=== PATIENT | female | born 1960 | race Caucasian/White ===

== ENCOUNTER 2020-01-25 08:45 | Outpatient (CLI) | payer BC, SELFPAY ==
--- NOTE | ~2020-01-25 | CT_ITS ---
EXAMINATION: CT chest w con DATE: 01/25/2020 09:26 INDICATION: Non-small cell right lung cancer TECHNIQUE: Computed tomography (CT) of the chest was performed with 75 cc Omnipaque 350 intravenous c ontrast. The dose-length product was 238.77 mGy-cm. Automated exposure control and iterative reconstr uction technique were employed. COMPARISON: Pet/CT dated 08/11/2019 FINDINGS: There is developing right paratracheal lymphadenopathy for instance on image 37 lymph node measures 1.5 cm short axis. There is right hilar lymphadenopathy, image 44 lymph node measures 1.2 cm . There is subcarinal lymphadenopathy. No significant pleural or pericardial effusion. Heart size is normal. Mild atherosclerosis of the aorta without evidence for aneurysm or dissection. Status post ri ght upper lobectomy with excision of right upper lobe mass since prior examination. Calcified granulo mas in the left lower lobe. Elevated right diaphragm, consistent with volume loss. There are scleroti c areas within multiple thoracic vertebra involving the anterior inferior margin, likely degenerative . No osteolytic defects are seen. No acute osseous abnormality. Fatty infiltration of the liver. Stat us post cholecystectomy. IMPRESSION: 1. Developing mediastinal and right hilar lymphadenopathy which is nonspecific, possibly reactive robby colleen metastatic disease. 2: Interval right upper lobectomy for pulmonary nodule. Reviewed, dictated and finalized at location A. IMPRESSION: 1. Developing mediastinal and right hilar lymphadenopathy which is nonspecific, possibly reactive versus metastatic disease. 2: Interval right upper lobectomy for pulmonary nodule.
[2020-01-25 09:25] LABS: Estimated Glomerular Filt Rate > 60
[2020-01-25 12:08] LABS: Basophils Absolute Auto 0.1 K/mm3 (0.0-0.1); Eosinophils Absolute Auto 0.5 K/mm3 (0-0.3); Eosinophils Percent Auto 5.7 % (0-4.4); Hematocrit 43.5 % (37.0-47.0); Hemoglobin 14.3 g/dL (12.0-15.0); Immature Granulocyte Absolute 0.02 K/mm3 (0.00-0.031); Immature Granulocyte Percent A 0.2 % (0-0.5); Lymphocytes Absolute Auto 3.14 K/mm3 (0.9-3.2); Mean Corpuscular HGB Conc 32.9 g/dl (32-36); Mean Corpuscular Hemoglobin 27.8 pg (26-34); Mean Corpuscular Volume 84.5 fl (80-100); Mean Platelet Volume 9.7 fl (7.4-10.4); Monocytes Absolute Auto 0.7 K/mm3 (0.1-0.6); Monocytes Percent Auto 8.3 % (2.6-8.5); Neutrophils Absolute Auto 3.9 K/mm3 (1.3-6.7); Neutrophils Percent Auto 46.8 % (45.5-73.1); Platelet Count Result 298 k/mm3 (150-375); Red Blood Count 5.15 M/mm3 (4.2-5.4); Red Cell Distribution Width 13.8 % (11.5-14.5); White Blood Count 8.3 K/mm3 (4.5-10.0)
[2020-01-25 12:16] LABS: Alanine Aminotransferase 42 U/L (4-35); Albumin Level 4.2 g/dL (3.5-5.1); Alkaline Phosphatase 170 U/L (38-126); Aspartate Amino Transferase 38 U/L (14-36); Bilirubin,Total 0.3 mg/dL (0.2-1.3); Blood Urea Nitrogen 8 mg/dL (7-17); Calcium 9.4 mg/dL (8.4-10.2); Carbon Dioxide 27 mmol/L (22-30); Chloride 106 mmol/L (98-107); Estimated Glomerular Filt Rate > 60; Glucose 117 mg/dL (65-105); Potassium 4.4 mmol/L (3.4-5.0); Sodium 139 mmol/L (137-145)
== END 2020-01-25 08:46 | disposition home or self-care (01) ==
PROVIDERS: PCP Internal Medicine Infectious Disease; Visit Provider Internal Medicine Hematology & Oncology
DX: C34.91 Malignant neoplasm of unspecified part of right bronchus or lung (principal)
CPT/HCPCS: 36415; 71260; 80053; 85025; Q9967

== ENCOUNTER 2020-03-01 07:46 | Outpatient (CLI) | payer BC, SELFPAY ==
--- NOTE | ~2020-03-01 | PE_ITS ---
EXAMINATION: PET skull to mid thigh DATE: 03/01/2020 09:26 INDICATION: Non-small cell cancer of the right lung TECHNIQUE: Blood glucose level was 139 mg/dL. 9.85 mCi of 18-fluorodeoxyglucose (18-FDG) was administ ered i.v. Low dose computed tomography (CT) images were acquired from the base of the brain to the pr oximal thighs for attenuation correction and anatomic localization. Positron emission tomography (PET ) images were acquired in the same distribution beginning 51 minutes after injection. COMPARISON: 08/11/2019 FINDINGS: Head/neck: FDG uptake in the oral cavity and prevertebral soft tissues without suspicious CT correlat e is likely physiologic. There are no pathologically enlarged lymph nodes. Chest: There are changes of interval right upper lobectomy. Stable mildly enlarged right paratracheal lymph nodes are identified with mild FDG uptake. The heart size is normal. The lungs are free of foc al airspace opacities. There is no pleural effusion or pneumothorax. Abdomen/pelvis/proximal thighs: Physiologic FDG activity is present in the bowel and urinary tract. N o abnormal FDG uptake is identified. The liver is diffusely low in attenuation when compared with the spleen, consistent with hepatic steatosis. The gallbladder is surgically absent. The spleen, pancre as, left adrenal gland, and kidneys are normal. A stable low-attenuation mass of the right adrenal gl and without FDG uptake is consistent with an adenoma. No pathologically enlarged abdominal or pelvic lymph nodes are identified. There is no free intraperitoneal gas or evidence of bowel obstruction. Th ere is calcified atherosclerosis of the aorta and many of the other arteries. Musculoskeletal: No abnormal FDG uptake is identified. There is mild thoracic and lumbar spondylosis. IMPRESSION: 1. Interval right upper lobectomy without evidence of metastatic disease. Mild FDG uptake in right pa ratracheal lymph nodes is likely reactive. Reviewed, dictated and finalized at location A. IMPRESSION: 1. Interval right upper lobectomy without evidence of metastatic disease. Mild FDG uptake in right paratracheal lymph nodes is likely reactive.
[2020-03-01 08:07] LABS: Glucose Point of Care 139 (65-105)
== END 2020-03-01 07:47 | disposition home or self-care (01) ==
LOC: ANHIMG 07:50
PROVIDERS: PCP Internal Medicine Infectious Disease; Visit Provider Internal Medicine Hematology & Oncology
DX: C34.91 Malignant neoplasm of unspecified part of right bronchus or lung (principal)
CPT/HCPCS: 78815; A9552

== ENCOUNTER 2020-04-03 15:15 | Outpatient (CLI) | payer BC, SELFPAY ==
[2020-04-03 15:28] LABS: Basophils Absolute Auto 0.1 K/mm3 (0.0-0.1); Eosinophils Absolute Auto 0.4 K/mm3 (0-0.3); Eosinophils Percent Auto 5.7 % (0-4.4); Hematocrit 40.8 % (37.0-47.0); Hemoglobin 13.6 g/dL (12.0-15.0); Immature Granulocyte Absolute 0.02 K/mm3 (0.00-0.031); Immature Granulocyte Percent A 0.3 % (0-0.5); Lymphocytes Absolute Auto 2.64 K/mm3 (0.9-3.2); Lymphocytes Percent Auto 39.5 % (18.3-44.2); Mean Corpuscular HGB Conc 33.3 g/dl (32-36); Mean Corpuscular Hemoglobin 29.2 pg (26-34); Mean Corpuscular Volume 87.6 fl (80-100); Mean Platelet Volume 9.8 fl (7.4-10.4); Monocytes Absolute Auto 0.6 K/mm3 (0.1-0.6); Monocytes Percent Auto 9.3 % (2.6-8.5); Neutrophils Percent Auto 44.2 % (45.5-73.1); Platelet Count Result 269 k/mm3 (150-375); Red Blood Count 4.66 M/mm3 (4.2-5.4); White Blood Count 6.7 K/mm3 (4.5-10.0)
[2020-04-03 15:33] LABS: Blood Urea Nitrogen 9 mg/dL (8-26); Carbon Dioxide 26 mmol/L (22-30); Chloride 102 mmol/L (98-109); Estimated Glomerular Filt Rate > 60; Glucose 301 mg/dL (70-105); Potassium 3.8 mmol/L (3.5-4.9); Sodium 139 mmol/L (138-146)
[2020-04-03 16:34] LABS: Alanine Aminotransferase 45 U/L (4-35); Albumin Level 4.2 g/dL (3.5-5.1); Alkaline Phosphatase 205 U/L (38-126); Aspartate Amino Transferase 41 U/L (14-36); Bilirubin,Total 0.2 mg/dL (0.2-1.3); Blood Urea Nitrogen 9 mg/dL (7-17); Calcium 9.4 mg/dL (8.4-10.2); Carbon Dioxide 27 mmol/L (22-30); Chloride 102 mmol/L (98-107); Estimated Glomerular Filt Rate > 60; Glucose 289 mg/dL (65-105); Sodium 137 mmol/L (137-145)
== END 2020-04-03 15:16 | disposition home or self-care (01) ==
LOC: ANHLAB 15:16
PROVIDERS: PCP Internal Medicine Infectious Disease; Visit Provider Internal Medicine Hematology & Oncology
DX: C34.91 Malignant neoplasm of unspecified part of right bronchus or lung (principal)
CPT/HCPCS: 36415; 80048; 80053; 85025

== ENCOUNTER 2020-07-02 08:30 | Outpatient (CLI) | payer BC, SELFPAY ==
--- NOTE | ~2020-07-02 | CT_ITS ---
EXAMINATION: CT chest w con DATE: 07/02/2020 09:55 INDICATION: Non-small cell cancer of the right lung status post right upper lobectomy TECHNIQUE: Transaxial computed tomographic images of the chest were obtained after the administration of 75 cc of Omnipaque 350 intravenous contrast. The dose-length product (DLP) was 230.65 mGy-cm. Ite rative reconstruction was used. COMPARISON: 03/01/2020, 01/25/2020 FINDINGS: There are changes of right upper lobectomy. Patchy opacities in the right upper lung zone a re new since the comparison examination and likely infectious or inflammatory. There is no pleural ef fusion or pneumothorax. The heart size is normal. Mildly prominent right paratracheal lymph nodes are unchanged. There is moderate thoracic spondylosis. The liver is diffusely low in attenuation when co mpared with the spleen, consistent with hepatic steatosis. IMPRESSION: 1. Stable changes of right upper lobectomy. 2. Stable right paratracheal lymph nodes, likely reactive. Reviewed, dictated and finalized at location A.
[2020-07-02 09:39] LABS: Estimated Glomerular Filt Rate > 60
== END 2020-07-02 08:31 | disposition home or self-care (01) ==
PROVIDERS: PCP Internal Medicine Infectious Disease; Visit Provider Internal Medicine Hematology & Oncology
DX: C34.91 Malignant neoplasm of unspecified part of right bronchus or lung (principal); Z90.2 Acquired absence of lung [part of]
CPT/HCPCS: 36415; 71260; Q9967

== ENCOUNTER 2020-07-09 12:42 | Outpatient (CLI) | payer BC, SELFPAY ==
[2020-07-09 12:54] LABS: Basophils Absolute Auto 0.1 K/mm3 (0.0-0.1); Basophils Percent Auto 0.7 % (0.2-1.2); Eosinophils Absolute Auto 0.4 K/mm3 (0-0.3); Eosinophils Percent Auto 4.5 % (0-4.4); Hematocrit 44.8 % (37.0-47.0); Immature Granulocyte Absolute 0.02 K/mm3 (0.00-0.031); Immature Granulocyte Percent A 0.2 % (0-0.5); Lymphocytes Absolute Auto 2.84 K/mm3 (0.9-3.2); Lymphocytes Percent Auto 31.9 % (18.3-44.2); Mean Corpuscular HGB Conc 33.5 g/dl (32-36); Mean Corpuscular Hemoglobin 28.8 pg (26-34); Mean Corpuscular Volume 86.2 fl (80-100); Mean Platelet Volume 9.7 fl (7.4-10.4); Monocytes Absolute Auto 0.8 K/mm3 (0.1-0.6); Monocytes Percent Auto 8.5 % (2.6-8.5); Neutrophils Absolute Auto 4.8 K/mm3 (1.3-6.7); Neutrophils Percent Auto 54.2 % (45.5-73.1); Platelet Count Result 256 k/mm3 (150-375); Red Cell Distribution Width 12.4 % (11.5-14.5); White Blood Count 8.9 K/mm3 (4.5-10.0)
[2020-07-09 12:59] LABS: Blood Urea Nitrogen 13 mg/dL (8-26); Carbon Dioxide 24 mmol/L (22-30); Chloride 97 mmol/L (98-109); Estimated Glomerular Filt Rate > 60; Glucose 405 mg/dL (70-105); Potassium 4.2 mmol/L (3.5-4.9); Sodium 135 mmol/L (138-146)
[2020-07-09 16:35] LABS: Hemoglobin A1C 9.5 % (<5.7)
[2020-07-09 16:38] LABS: Alanine Aminotransferase 43 U/L (4-35); Albumin Level 4.4 g/dL (3.5-5.1); Alkaline Phosphatase 188 U/L (38-126); Anion Gap 10 mmol/L (8-16); Aspartate Amino Transferase 36 U/L (14-36); Bilirubin,Total 0.4 mg/dL (0.2-1.3); Blood Urea Nitrogen 13 mg/dL (7-17); Calcium 9.6 mg/dL (8.4-10.2); Carbon Dioxide 25 mmol/L (22-30); Chloride 97 mmol/L (98-107); Estimated Glomerular Filt Rate > 60; Glucose 399 mg/dL (65-105); Potassium 4.6 mmol/L (3.4-5.0); Sodium 132 mmol/L (137-145)
== END 2020-07-09 12:43 | disposition home or self-care (01) ==
PROVIDERS: Nurse Practitioner Adult Health; PCP Internal Medicine Infectious Disease; Visit Provider Internal Medicine Hematology & Oncology
DX: C34.91 Malignant neoplasm of unspecified part of right bronchus or lung (principal)
CPT/HCPCS: 36415; 80048; 80053; 83036; 85025

== ENCOUNTER 2020-10-09 10:15 | Outpatient (CLI) | payer BC, SELFPAY ==
[2020-10-09 10:48] LABS: Basophils Absolute Auto 0.1 K/mm3 (0.0-0.1); Basophils Percent Auto 0.9 % (0.2-1.2); Eosinophils Absolute Auto 0.7 K/mm3 (0-0.3); Eosinophils Percent Auto 10.8 % (0-4.4); Hematocrit 44.4 % (37.0-47.0); Hemoglobin 14.5 g/dL (12.0-15.0); Immature Granulocyte Absolute 0.01 K/mm3 (0.00-0.031); Immature Granulocyte Percent A 0.2 % (0-0.5); Lymphocytes Absolute Auto 2.39 K/mm3 (0.9-3.2); Lymphocytes Percent Auto 37.6 % (18.3-44.2); Mean Corpuscular HGB Conc 32.7 g/dl (32-36); Mean Corpuscular Hemoglobin 28.5 pg (26-34); Mean Corpuscular Volume 87.4 fl (80-100); Mean Platelet Volume 9.2 fl (7.4-10.4); Monocytes Absolute Auto 0.6 K/mm3 (0.1-0.6); Monocytes Percent Auto 9.6 % (2.6-8.5); Neutrophils Absolute Auto 2.6 K/mm3 (1.3-6.7); Neutrophils Percent Auto 40.9 % (45.5-73.1); Platelet Count Result 257 k/mm3 (150-375); Red Blood Count 5.08 M/mm3 (4.2-5.4); Red Cell Distribution Width 12.9 % (11.5-14.5); White Blood Count 6.4 K/mm3 (4.5-10.0)
[2020-10-09 10:51] LABS: Blood Urea Nitrogen 9 mg/dL (8-26); Carbon Dioxide 27 mmol/L (22-30); Chloride 102 mmol/L (98-109); Estimated Glomerular Filt Rate > 60; Glucose 173 mg/dL (70-105); Potassium 4.1 mmol/L (3.5-4.9); Sodium 140 mmol/L (138-146)
[2020-10-09 12:29] LABS: Alanine Aminotransferase 35 U/L (4-35); Albumin Level 4.3 g/dL (3.5-5.1); Alkaline Phosphatase 151 U/L (38-126); Anion Gap 8 mmol/L (8-16); Aspartate Amino Transferase 33 U/L (14-36); Bilirubin,Total 0.5 mg/dL (0.2-1.3); Blood Urea Nitrogen 11 mg/dL (7-17); Calcium 9.6 mg/dL (8.4-10.2); Carbon Dioxide 29 mmol/L (22-30); Chloride 102 mmol/L (98-107); Estimated Glomerular Filt Rate > 60; Glucose 173 mg/dL (65-105); Potassium 4.3 mmol/L (3.4-5.0); Sodium 139 mmol/L (137-145)
== END 2020-10-09 10:16 | disposition home or self-care (01) ==
LOC: ANHLAB 10:16
PROVIDERS: PCP Internal Medicine Infectious Disease; Visit Provider Internal Medicine Hematology & Oncology
DX: R73.9 Hyperglycemia, unspecified (principal); C34.11 Malignant neoplasm of upper lobe, right bronchus or lung
CPT/HCPCS: 36415; 80048; 80053; 85025

== ENCOUNTER 2021-01-07 14:39 | Outpatient (CLI) | payer BC, SELFPAY ==
--- NOTE | ~2021-01-07 | CT_ITS ---
EXAMINATION: CT diagnostic chest w con EXAM DATE: 01/07/2021 15:21 INDICATION: Right-sided lung cancer. TECHNIQUE: Spiral CT of the chest following intravenous injection of 75 mL Omnipaque 350. Axial, cor onal and sagittal images were reviewed. Coronal maximum intensity pixel images of chest reviewed. Hussain liriano dose-length product (DLP) for this examination was 295.43 mGy-cm. The exposure was tailored accor ding to patient size (auto mA exposure control), and iterative reconstruction (ASIR) was used as loree tional dose reduction technique. Comparison is made to prior examination from 07/02/2020, 01/25/2020. FINDINGS: Surgical changes from partial right-sided pneumonectomy. There are no pleural or pericard ial effusions. Tracheobronchial tree is patent. There is mildly enlarged right upper paratracheal lymph node at 1.7 x 1.0 cm. Some fullness to the me diastinal lymph nodes which are normal in size. Overall similar in appearance to CT scan dated 020, but slightly increased compared to a more recent CT of 07/02/2020. Could be waxing and waning of reactive lymphadenopathy correlating with prior PET/CT scan. Difficult to exclude metastatic disease. No suspicious pulmonary nodules. There is no pneumothorax. Heart normal in size. There is mild co ronary arterial calcification, arterial sclerosis. There is hepatic steatosis. There are cholecystec dominique clips. There is mild thoracic spondylosis without osteoblastic or osteolytic lesions identifie d. IMPRESSION: Mild lymphadenopathy, appearance similar to scan from January but increased from June. Coul d be waxing and waning of reactive lymphadenopathy. Can't exclude metastatic disease. Partial right-sided pneumonectomy. Cholecystectomy. Hepatic steatosis. Mild emphysema. Reviewed, dictated and finalized at location B. [employer] MAINTAINER IMPRESSION: Mild lymphadenopathy, appearance similar to scan from January but incre ased from June. Could be waxing and waning of reactive lymphadenopathy. Can't exclude metastatic disease. Partial right-sided pneumonectomy. Cholecystectomy. Hepatic steatosis. Mild emphysema.
[2021-01-07 15:17] LABS: Estimated Glomerular Filt Rate > 60
== END 2021-01-07 14:40 | disposition home or self-care (01) ==
PROVIDERS: PCP Internal Medicine Infectious Disease; Visit Provider Nurse Practitioner Adult Health
DX: C34.11 Malignant neoplasm of upper lobe, right bronchus or lung (principal); Z90.49 Acquired absence of other specified parts of digestive tract; K76.0 Fatty (change of) liver, not elsewhere classified; J43.9 Emphysema, unspecified
CPT/HCPCS: 71260; Q9967

== ENCOUNTER 2021-01-14 10:56 | Outpatient (CLI) | payer BC, SELFPAY ==
[2021-01-14 11:10] LABS: Basophils Absolute Auto 0.1 K/mm3 (0.0-0.1); Basophils Percent Auto 0.5 % (0.2-1.2); Eosinophils Absolute Auto 0.4 K/mm3 (0-0.3); Eosinophils Percent Auto 3.7 % (0-4.4); Hemoglobin 13.7 g/dL (12.0-15.0); Immature Granulocyte Absolute 0.03 K/mm3 (0.00-0.031); Immature Granulocyte Percent A 0.3 % (0-0.5); Lymphocytes Absolute Auto 2.32 K/mm3 (0.9-3.2); Lymphocytes Percent Auto 20.8 % (18.3-44.2); Mean Corpuscular HGB Conc 32.6 g/dl (32-36); Mean Corpuscular Hemoglobin 28.5 pg (26-34); Mean Corpuscular Volume 87.5 fl (80-100); Mean Platelet Volume 9.5 fl (7.4-10.4); Monocytes Absolute Auto 1.1 K/mm3 (0.1-0.6); Monocytes Percent Auto 9.7 % (2.6-8.5); Neutrophils Absolute Auto 7.3 K/mm3 (1.3-6.7); Platelet Count Result 341 k/mm3 (150-375); Red Cell Distribution Width 12.9 % (11.5-14.5); White Blood Count 11.2 K/mm3 (4.5-10.0)
[2021-01-14 12:44] LABS: Alanine Aminotransferase 23 U/L (4-35); Albumin Level 4.2 g/dL (3.5-5.1); Alkaline Phosphatase 125 U/L (38-126); Anion Gap 9 mmol/L (8-16); Aspartate Amino Transferase 25 U/L (14-36); Bilirubin,Total 0.4 mg/dL (0.2-1.3); Blood Urea Nitrogen 12 mg/dL (7-17); Calcium 9.9 mg/dL (8.4-10.2); Carbon Dioxide 26 mmol/L (22-30); Chloride 103 mmol/L (98-107); Estimated Glomerular Filt Rate > 60; Glucose 155 mg/dL (65-105); Sodium 138 mmol/L (137-145)
== END 2021-01-14 10:57 | disposition home or self-care (01) ==
LOC: ANHLAB 10:58
PROVIDERS: PCP Internal Medicine Infectious Disease; Visit Provider Internal Medicine Hematology & Oncology
DX: C34.11 Malignant neoplasm of upper lobe, right bronchus or lung (principal)
CPT/HCPCS: 36415; 80048; 80053; 85025

== ENCOUNTER 2021-04-16 08:16 | Outpatient (CLI) | payer BC, SELFPAY ==
--- NOTE | ~2021-04-16 | CT_ITS ---
EXAMINATION: CT diagnostic chest w con EXAM DATE: 04/16/2021 09:10 INDICATION: Right-sided lung cancer. TECHNIQUE: Spiral CT of the chest following intravenous injection of 75 mL Omnipaque 350. Axial, cor onal and sagittal images of the chest were reviewed. Coronal maximum intensity pixel images of chest reviewed. The dose-length product (DLP) for this examination was 200.69 mGy-cm. The exposure was t ailored according to patient size (auto mA exposure control), and iterative reconstruction (ASIR) was used as additional dose reduction technique. Comparison is made to prior examination from 01/07/2021. FINDINGS: Stable partial right pneumonectomy, right upper lobectomy and hilar surgical changes. Agai n there is mildly enlarged right upper paratracheal lymph node measuring 1.6 x 0.9 cm. This is either stable or slightly decreased in size. No central pulmonary emboli. There is mild emphysema. There ar e no pleural or pericardial effusions. Tracheobronchial tree is patent. There is no mediastinal, hilar or axillary lymphadenopathy. There is no pneumothorax. Heart normal in size. No evidence of coronary arterial calcification. Hepatic steatosis. Cholecystectomy. There is mild to moderate t horacic spondylosis without osteoblastic or osteolytic lesions identified. IMPRESSION: 1. Stable mildly enlarged right upper paratracheal lymph node. 2. Stable right partial pneumonectomy. 3. Mild emphysema. Reviewed, dictated and finalized at location D.
[2021-04-16 09:05] LABS: Estimated Glomerular Filt Rate > 60
== END 2021-04-16 08:17 | disposition home or self-care (01) ==
PROVIDERS: PCP Internal Medicine Infectious Disease; Visit Provider Internal Medicine Hematology & Oncology
DX: C34.11 Malignant neoplasm of upper lobe, right bronchus or lung (principal); J43.9 Emphysema, unspecified
CPT/HCPCS: 71260; Q9967

== ENCOUNTER 2021-04-23 08:58 | Outpatient (CLI) | payer BC, SELFPAY ==
[2021-04-23 09:18] LABS: Basophils Absolute Auto 0.1 K/mm3 (0.0-0.1); Eosinophils Absolute Auto 0.3 K/mm3 (0-0.3); Eosinophils Percent Auto 3.9 % (0-4.4); Hemoglobin 14.3 g/dL (12.0-15.0); Immature Granulocyte Absolute 0.03 K/mm3 (0.00-0.031); Immature Granulocyte Percent A 0.4 % (0-0.5); Lymphocytes Absolute Auto 2.62 K/mm3 (0.9-3.2); Lymphocytes Percent Auto 33.7 % (18.3-44.2); Mean Corpuscular HGB Conc 33.3 g/dl (32-36); Mean Corpuscular Hemoglobin 28.5 pg (26-34); Mean Corpuscular Volume 85.7 fl (80-100); Mean Platelet Volume 9.5 fl (7.4-10.4); Monocytes Absolute Auto 0.6 K/mm3 (0.1-0.6); Monocytes Percent Auto 7.7 % (2.6-8.5); Neutrophils Absolute Auto 4.2 K/mm3 (1.3-6.7); Neutrophils Percent Auto 53.3 % (45.5-73.1); Platelet Count Result 262 k/mm3 (150-375); Red Blood Count 5.02 M/mm3 (4.2-5.4); Red Cell Distribution Width 13.4 % (11.5-14.5); White Blood Count 7.8 K/mm3 (4.5-10.0)
[2021-04-23 09:26] LABS: Blood Urea Nitrogen 13 mg/dL (8-26); Carbon Dioxide 28 mmol/L (22-30); Chloride 102 mmol/L (98-109); Estimated Glomerular Filt Rate > 60; Glucose 178 mg/dL (70-105); Potassium 4.6 mmol/L (3.5-4.9); Sodium 140 mmol/L (138-146)
[2021-04-23 12:03] LABS: Alanine Aminotransferase 29 U/L (4-35); Albumin Level 4.1 g/dL (3.5-5.1); Alkaline Phosphatase 139 U/L (38-126); Anion Gap 11 mmol/L (8-16); Aspartate Amino Transferase 27 U/L (14-36); Bilirubin,Total 0.2 mg/dL (0.2-1.3); Blood Urea Nitrogen 14 mg/dL (7-17); Calcium 9.9 mg/dL (8.4-10.2); Carbon Dioxide 24 mmol/L (22-30); Chloride 104 mmol/L (98-107); Estimated Glomerular Filt Rate > 60; Glucose 176 mg/dL (65-105); Potassium 4.8 mmol/L (3.4-5.0); Sodium 139 mmol/L (137-145)
== END 2021-04-23 08:59 | disposition home or self-care (01) ==
LOC: ANHLAB 09:03
PROVIDERS: PCP Internal Medicine Infectious Disease; Visit Provider Internal Medicine Hematology & Oncology
DX: C34.11 Malignant neoplasm of upper lobe, right bronchus or lung (principal)
CPT/HCPCS: 36415; 80048; 80053; 85025

== ENCOUNTER 2021-11-15 10:56 | Outpatient (CLI) | payer BC, SELFPAY ==
--- NOTE | ~2021-11-15 | CT_ITS ---
EXAMINATION: CT diagnostic chest w con EXAM DATE: 11/15/2021 11:29 INDICATION: Right upper lobe cancer. TECHNIQUE: Spiral CT of the chest following intravenous injection of 75 mL Omnipaque 350. Axial, cor onal and sagittal images of the chest were reviewed. Coronal maximum intensity pixel images of chest reviewed. The dose-length product (DLP) for this examination was 202.07 mGy-cm. The exposure was t ailored according to patient size (auto mA exposure control), and iterative reconstruction (ASIR) was used as additional dose reduction technique. Comparison is made to prior examination from 04/16/2021. FINDINGS: Stable partial right pneumonectomy, right upper lobectomy and hilar surgical changes. Agai n there is mildly enlarged right upper paratracheal lymph node measuring 1.7 x 1.0 cm, stable or very minimally increased in size. No central pulmonary emboli. There is mild emphysema. There are no ple ural or pericardial effusions. Tracheobronchial tree is patent. No central pulmonary emboli. There is no pneumothorax. Heart normal in size. No evidence of coronary arterial calcification. Hepati c steatosis. Cholecystectomy. There is mild to moderate thoracic spondylosis without osteoblastic or osteolytic lesions identified. IMPRESSION: 1. Right upper paratracheal lymph node, stable or very minimally increased in size. 2. Stable right partial pneumonectomy. 3. Mild emphysema. Reviewed, dictated and finalized at location A. ODS SPECIALIST
[2021-11-15 11:25] LABS: Estimated Glomerular Filt Rate > 60
== END 2021-11-15 10:57 | disposition home or self-care (01) ==
LOC: ANHIMG 11:01
PROVIDERS: PCP Internal Medicine Infectious Disease; Visit Provider Internal Medicine Hematology & Oncology
DX: C34.11 Malignant neoplasm of upper lobe, right bronchus or lung (principal); Z90.2 Acquired absence of lung [part of]; J43.9 Emphysema, unspecified
CPT/HCPCS: 71260; Q9967

== ENCOUNTER 2021-11-25 09:29 | Outpatient (CLI) | payer BC, SELFPAY ==
[2021-11-25 09:44] LABS: Basophils Absolute Auto 0.1 K/mm3 (0.0-0.1); Eosinophils Absolute Auto 0.8 K/mm3 (0-0.3); Eosinophils Percent Auto 9.6 % (0-4.4); Hematocrit 45.8 % (37.0-47.0); Hemoglobin 14.4 g/dL (12.0-15.0); Immature Granulocyte Absolute 0.02 K/mm3 (0.00-0.031); Immature Granulocyte Percent A 0.2 % (0-0.5); Lymphocytes Percent Auto 27.4 % (18.3-44.2); Mean Corpuscular HGB Conc 31.4 g/dl (32-36); Mean Corpuscular Hemoglobin 28.7 pg (26-34); Mean Corpuscular Volume 91.4 fl (80-100); Mean Platelet Volume 10.4 fl (7.4-10.4); Monocytes Absolute Auto 0.5 K/mm3 (0.1-0.6); Monocytes Percent Auto 6.7 % (2.6-8.5); Neutrophils Absolute Auto 4.4 K/mm3 (1.3-6.7); Neutrophils Percent Auto 55.1 % (45.5-73.1); Platelet Count Result 180 k/mm3 (150-375); Red Blood Count 5.01 M/mm3 (4.2-5.4); Red Cell Distribution Width 12.7 % (11.5-14.5)
[2021-11-25 09:47] LABS: Blood Urea Nitrogen 13 mg/dL (8-26); Carbon Dioxide 32 mmol/L (22-30); Chloride 100 mmol/L (98-109); Estimated Glomerular Filt Rate > 60; Glucose 210 mg/dL (70-105); Potassium 4.5 mmol/L (3.5-4.9); Sodium 140 mmol/L (138-146)
[2021-11-25 10:48] LABS: Alanine Aminotransferase 39 U/L (4-35); Albumin Level 4.5 g/dL (3.5-5.1); Alkaline Phosphatase 133 U/L (38-126); Anion Gap 8 mmol/L (8-16); Aspartate Amino Transferase 33 U/L (14-36); Bilirubin,Total 0.4 mg/dL (0.2-1.3); Blood Urea Nitrogen 12 mg/dL (7-17); Calcium 9.8 mg/dL (8.4-10.2); Carbon Dioxide 29 mmol/L (22-30); Chloride 101 mmol/L (98-107); Estimated Glomerular Filt Rate > 60; Glucose 219 mg/dL (65-110); Potassium 4.6 mmol/L (3.4-5.0); Sodium 138 mmol/L (137-145)
== END 2021-11-25 09:30 | disposition home or self-care (01) ==
LOC: ANHLAB 09:30
PROVIDERS: PCP Internal Medicine Infectious Disease; Visit Provider Internal Medicine Hematology & Oncology
DX: C34.11 Malignant neoplasm of upper lobe, right bronchus or lung (principal)
CPT/HCPCS: 36415; 80053; 85025

== ENCOUNTER 2022-05-20 12:02 | Outpatient (CLI) | payer BC, SELFPAY ==
--- NOTE | ~2022-05-20 | XR_ITS ---
EXAMINATION: XR chest 2V 05/20/2022 12:18 INDICATION: Malignant neoplasm of the right upper lobe PROCEDURE: 2 view chest COMPARISON: 09/01/[address] dated 11/15/2021 FINDINGS: The lungs are clear. The cardiomediastinal silhouette is within normal limits. There are no pleural effusions. There is no pneumothorax suspected. IMPRESSION: 1: NO ACUTE CARDIOPULMONARY DISEASE. Reviewed, dictated and finalized at location A.
== END 2022-05-20 12:03 | disposition home or self-care (01) ==
PROVIDERS: PCP Internal Medicine Infectious Disease; Visit Provider Internal Medicine Hematology & Oncology
DX: C34.11 Malignant neoplasm of upper lobe, right bronchus or lung (principal)
CPT/HCPCS: 71046

== ENCOUNTER 2022-05-26 09:35 | Outpatient (CLI) | payer BC, SELFPAY ==
[2022-05-26 09:50] LABS: Basophils Absolute Auto 0.1 K/mm3 (0.0-0.1); Basophils Percent Auto 0.9 % (0.2-1.2); Eosinophils Absolute Auto 0.8 K/mm3 (0-0.3); Hematocrit 41.7 % (37.0-47.0); Hemoglobin 13.6 g/dL (12.0-15.0); Immature Granulocyte Absolute 0.03 K/mm3 (0.00-0.031); Immature Granulocyte Percent A 0.3 % (0-0.5); Lymphocytes Absolute Auto 3.03 K/mm3 (0.9-3.2); Lymphocytes Percent Auto 27.2 % (18.3-44.2); Mean Corpuscular HGB Conc 32.6 g/dl (32-36); Mean Corpuscular Hemoglobin 29.4 pg (26-34); Mean Corpuscular Volume 90.1 fl (80-100); Mean Platelet Volume 9.5 fl (7.4-10.4); Monocytes Absolute Auto 0.9 K/mm3 (0.1-0.6); Monocytes Percent Auto 7.9 % (2.6-8.5); Neutrophils Absolute Auto 6.3 K/mm3 (1.3-6.7); Neutrophils Percent Auto 56.7 % (45.5-73.1); Platelet Count Result 246 k/mm3 (150-375); Red Blood Count 4.63 M/mm3 (4.2-5.4); White Blood Count 11.1 K/mm3 (4.5-10.0)
[2022-05-26 09:53] LABS: Blood Urea Nitrogen 12 mg/dL (8-26); Carbon Dioxide 26 mmol/L (22-30); Chloride 102 mmol/L (98-109); Estimated Glomerular Filt Rate > 60; Glucose 186 mg/dL (70-105); Potassium 4.5 mmol/L (3.5-4.9); Sodium 140 mmol/L (138-146)
[2022-05-26 13:19] LABS: Alanine Aminotransferase 38 U/L (6-35); Albumin Level 4.4 g/dL (3.5-5.1); Alkaline Phosphatase 117 U/L (38-126); Anion Gap 7 mmol/L (8-16); Aspartate Amino Transferase 29 U/L (14-36); Bilirubin,Total 0.2 mg/dL (0.2-1.3); Blood Urea Nitrogen 13 mg/dL (7-17); Carbon Dioxide 27 mmol/L (22-30); Chloride 103 mmol/L (98-107); Estimated Glomerular Filt Rate > 60; Glucose 180 mg/dL (65-110); Potassium 4.5 mmol/L (3.4-5.0); Sodium 137 mmol/L (137-145)
== END 2022-05-26 09:36 | disposition home or self-care (01) ==
LOC: ANHLAB 09:36
PROVIDERS: PCP Internal Medicine Infectious Disease; Visit Provider Internal Medicine Hematology & Oncology
DX: C34.11 Malignant neoplasm of upper lobe, right bronchus or lung (principal)
CPT/HCPCS: 36415; 80047; 80053; 85025

== ENCOUNTER 2022-11-24 09:13 | Outpatient (CLI) | payer BC, SELFPAY ==
--- NOTE | ~2022-11-24 | CT_ITS ---
EXAMINATION: CT diagnostic chest w con DATE: 11/24/2022 09:53 INDICATION: Malignant neoplasm of the upper lobe of the right lung TECHNIQUE: Transaxial computed tomographic images of the chest were obtained after the administration of 75 cc of Omnipaque 350 intravenous contrast. The dose-length product (DLP) was 387.00 mGy-cm. Ite rative reconstruction was used. COMPARISON: 11/15/2021 FINDINGS: There are changes of right partial pneumonectomy. There are stable nodules in the right jeanne g apex measuring up to 3 mm. Mild elevation of the right hemidiaphragm is consistent with partial pne umonectomy. The lungs are free of acute opacities. No pleural effusion or pneumothorax. Mild right pa ratracheal lymphadenopathy is stable. The heart size is normal. The liver is diffusely low in attenua tion when compared with the spleen, consistent with hepatic steatosis. The gallbladder is surgically absent. There is moderate thoracic spondylosis. IMPRESSION: 1. Stable changes of right partial pneumonectomy. 2. Stable right paratracheal lymphadenopathy. 3. Diffuse hepatic steatosis. Reviewed, dictated and finalized at location B. E EXERCISER
[2022-11-24 09:43] LABS: Estimated Glomerular Filt Rate > 60
[2022-11-24 18:32] LABS: Estimated Glomerular Filt Rate > 60
== END 2022-11-24 09:14 | disposition home or self-care (01) ==
PROVIDERS: PCP Internal Medicine Infectious Disease; Visit Provider Internal Medicine Hematology & Oncology
DX: C34.11 Malignant neoplasm of upper lobe, right bronchus or lung (principal); K76.0 Fatty (change of) liver, not elsewhere classified
CPT/HCPCS: 71260; Q9967

== ENCOUNTER 2022-12-01 10:05 | Outpatient (CLI) | payer BC, SELFPAY ==
[2022-12-01 10:26] LABS: Basophils Absolute Auto 0.1 K/mm3 (0.0-0.1); Basophils Percent Auto 1.2 % (0.2-1.2); Eosinophils Absolute Auto 0.8 K/mm3 (0-0.3); Eosinophils Percent Auto 8.9 % (0-4.4); Hematocrit 43.8 % (37.0-47.0); Hemoglobin 14.2 g/dL (12.0-15.0); Immature Granulocyte Absolute 0.02 K/mm3 (0.00-0.031); Immature Granulocyte Percent A 0.2 % (0-0.5); Lymphocytes Absolute Auto 2.66 K/mm3 (0.9-3.2); Lymphocytes Percent Auto 31.6 % (18.3-44.2); Mean Corpuscular HGB Conc 32.4 g/dl (32-36); Mean Corpuscular Hemoglobin 28.9 pg (26-34); Mean Platelet Volume 9.4 fl (7.4-10.4); Monocytes Absolute Auto 0.7 K/mm3 (0.1-0.6); Neutrophils Absolute Auto 4.2 K/mm3 (1.3-6.7); Neutrophils Percent Auto 50.1 % (45.5-73.1); Platelet Count Result 254 k/mm3 (150-375); Red Blood Count 4.92 M/mm3 (4.2-5.4); White Blood Count 8.4 K/mm3 (4.5-10.0)
[2022-12-01 10:32] LABS: Blood Urea Nitrogen 13 mg/dL (8-26); Carbon Dioxide 28 mmol/L (22-30); Chloride 100 mmol/L (98-109); Estimated Glomerular Filt Rate > 60; Glucose 188 mg/dL (70-105); Ionized Calcium (POC) 1.24 mmol/L (1.11-1.31); Potassium 4.4 mmol/L (3.5-4.9); Sodium 138 mmol/L (138-146)
[2022-12-01 12:36] LABS: Alanine Aminotransferase 52 U/L (6-35); Albumin Level 4.5 g/dL (3.5-5.1); Alkaline Phosphatase 132 U/L (38-126); Anion Gap 9 mmol/L (8-16); Aspartate Amino Transferase 43 U/L (14-36); Bilirubin,Total 0.3 mg/dL (0.2-1.3); Blood Urea Nitrogen 13 mg/dL (7-17); Calcium 9.3 mg/dL (8.4-10.2); Carbon Dioxide 28 mmol/L (22-30); Chloride 101 mmol/L (98-107); Estimated Glomerular Filt Rate > 60; Glucose 181 mg/dL (65-110); Potassium 4.4 mmol/L (3.4-5.0); Sodium 138 mmol/L (137-145)
== END 2022-12-01 10:06 | disposition home or self-care (01) ==
LOC: ANHLAB 10:06
PROVIDERS: PCP Internal Medicine Infectious Disease; Visit Provider Internal Medicine Hematology & Oncology
DX: C34.11 Malignant neoplasm of upper lobe, right bronchus or lung (principal)
CPT/HCPCS: 36415; 80047; 80053; 85025

== ENCOUNTER 2023-08-31 08:58 | Outpatient (CLI) | payer BC, SELFPAY ==
--- NOTE | ~2023-08-31 | CT_ITS ---
Clinical Indication: Lung cancer CT Scan of the Chest with Contrast: Technique: Contiguous sections were acquired throughout the chest after intravenous administration of 75 cc of Omnipaque 350. Dose reduction technique was used on this scan by utilizing automated exposu re control and iterative reconstruction technique. The dose-length product (DLP) was 280.08 mGy-cm. COMPARISON: 11/24/2022 Findings: There are mildly enlarged right paratracheal and right hilar lymph nodes. Largest lymph nodes at the superior right paratracheal region measuring 1.7 cm in short axis (axial image 17). There is no filli ng defect in the pulmonary arterial tree to suggest pulmonary embolus. There is no evidence of aortic dissection or aneurysm. There is no evidence of pleural or pericardial effusion. Patient is status post right upper lobectomy. No suspicious pulmonary lesion identified. There is mil d emphysema. Images through the upper abdomen reveal diffuse fatty infiltration of liver. There is a mildly promin ent perigastric lymph node measuring 1 cm in short axis (axial image 103).. Impression: Stable lymphadenopathy, as detailed above. Metastatic disease is a consideration. Status post right upper lobectomy. Mild emphysema. Diffuse fatty infiltration of liver. Reviewed, dictated and finalized at location . Impression: Stable lymphadenopathy, as detailed above. Metastatic disease is a consideratio n. Status post right upper lobectomy. Mild emphysema. Diffuse fatty infiltration of liver.
[2023-08-31 09:30] LABS: Estimated Glomerular Filt Rate > 60
== END 2023-08-31 08:59 | disposition home or self-care (01) ==
PROVIDERS: PCP Internal Medicine Infectious Disease; Visit Provider Internal Medicine Hematology & Oncology
DX: C34.11 Malignant neoplasm of upper lobe, right bronchus or lung (principal); J43.9 Emphysema, unspecified; K76.0 Fatty (change of) liver, not elsewhere classified; Z90.2 Acquired absence of lung [part of]
CPT/HCPCS: 71260; Q9967

== ENCOUNTER 2023-09-07 09:28 | Outpatient (CLI) | payer BC, SELFPAY ==
[2023-09-07 09:39] LABS: Basophils Absolute Auto 0.1 K/mm3 (0.0-0.1); Basophils Percent Auto 1.2 % (0.2-1.2); Eosinophils Absolute Auto 0.6 K/mm3 (0-0.3); Eosinophils Percent Auto 8.1 % (0-4.4); Hematocrit 43.6 % (37.0-47.0); Hemoglobin 14.1 g/dL (12.0-15.0); Immature Granulocyte Absolute 0.02 K/mm3 (0.00-0.031); Immature Granulocyte Percent A 0.3 % (0-0.5); Lymphocytes Absolute Auto 2.65 K/mm3 (0.9-3.2); Lymphocytes Percent Auto 34.4 % (18.3-44.2); Mean Corpuscular HGB Conc 32.3 g/dl (32-36); Mean Corpuscular Hemoglobin 28.7 pg (26-34); Mean Corpuscular Volume 88.8 fl (80-100); Mean Platelet Volume 9.4 fl (7.4-10.4); Monocytes Absolute Auto 0.6 K/mm3 (0.1-0.6); Monocytes Percent Auto 7.4 % (2.6-8.5); Neutrophils Absolute Auto 3.8 K/mm3 (1.3-6.7); Neutrophils Percent Auto 48.6 % (45.5-73.1); Platelet Count Result 264 k/mm3 (150-375); Red Blood Count 4.91 M/mm3 (4.2-5.4); Red Cell Distribution Width 12.8 % (11.5-14.5); White Blood Count 7.7 K/mm3 (4.5-10.0)
[2023-09-07 09:43] LABS: Blood Urea Nitrogen 12 mg/dL (8-26); Carbon Dioxide 29 mmol/L (22-30); Chloride 101 mmol/L (98-109); Estimated Glomerular Filt Rate > 60; Glucose 175 mg/dL (70-105); Ionized Calcium (POC) 1.15 mmol/L (1.11-1.31); Potassium 4.4 mmol/L (3.5-4.9); Sodium 140 mmol/L (138-146)
[2023-09-07 12:31] LABS: Alanine Aminotransferase 32 U/L (6-35); Albumin Level 4.4 g/dL (3.5-5.1); Alkaline Phosphatase 120 U/L (38-126); Anion Gap 9 mmol/L (8-16); Aspartate Amino Transferase 27 U/L (14-36); Bilirubin,Total 0.5 mg/dL (0.2-1.3); Blood Urea Nitrogen 13 mg/dL (7-17); Calcium 9.4 mg/dL (8.4-10.2); Carbon Dioxide 28 mmol/L (22-30); Chloride 101 mmol/L (98-107); Estimated Glomerular Filt Rate > 60; Glucose 174 mg/dL (65-110); Potassium 4.3 mmol/L (3.4-5.0); Sodium 138 mmol/L (137-145)
== END 2023-09-07 09:29 | disposition home or self-care (01) ==
PROVIDERS: PCP Internal Medicine Infectious Disease; Visit Provider Internal Medicine Hematology & Oncology
DX: C34.11 Malignant neoplasm of upper lobe, right bronchus or lung (principal)
CPT/HCPCS: 36415; 80047; 80053; 85025

== ENCOUNTER 2024-10-12 09:19 | Outpatient (CLI) | payer MEDICARE, SELFPAY ==
--- NOTE | ~2024-10-12 | CT_ITS ---
CT diagnostic chest w con Ordering provider: Rasta Fitzgerald MD History: 64 years Female with . LUNG CANCER . Comparison: August 31, 2023 Technique: CT chest with IV contrast. Radiation reduction technique utilized.The dose-length product was 220.15 mGy-cm. 75 mL Omnipaque 350 was given IV. Findings: VISUALIZED THORACIC INLET: Normal. MEDIASTINUM: Aorta/coronary arteries: Mild atheromatous disease. Heart/other: The heart is not enlarged. Prominent pulmonary artery is seen suggestive of pulmonary hy pertension. Lymph nodes: Artifacts are seen in the area of the mediastinum with the right paratracheal lymph node s which appear slightly larger or unchanged. Calcified lymph nodes in the left hilar and in the subca rinal areas. LUNGS: Status post right upper lobectomy. Emphysematous changes of the lungs. Nodules in the right ap ical area are unchanged. No pulmonary masses. No infiltrates or effusions. No pneumothorax. VISUALIZED UPPER ABDOMEN: Fat infiltration of the liver. Otherwise, the visualized upper abdomen is n ormal. MUSCULOSKELETAL: Soft tissues: The superficial soft tissues are normal. Bones: Age appropriate degenerative changes of the spine. IMPRESSION: No evidence of pulmonary masses. Mediastinal lymph nodes which are unchanged from previous examination. Fat infiltration of the liver. Postsurgical changes in the right upper lobe. Reviewed, dictated and finalized at location A. [employer]
[2024-10-12 09:48] LABS: Estimated Glomerular Filt Rate > 60
== END 2024-10-12 09:20 | disposition home or self-care (01) ==
PROVIDERS: PCP Internal Medicine Infectious Disease; Visit Provider Internal Medicine Hematology & Oncology
DX: C34.11 Malignant neoplasm of upper lobe, right bronchus or lung (principal); K76.0 Fatty (change of) liver, not elsewhere classified
CPT/HCPCS: 71260; Q9967

== ENCOUNTER 2024-10-19 09:55 | Outpatient (CLI) | payer MEDICARE, SELFPAY ==
[2024-10-19 10:20] LABS: Basophils Absolute Auto 0.1 K/mm3 (0.0-0.1); Basophils Percent Auto 0.9 % (0.2-1.2); Eosinophils Absolute Auto 0.4 K/mm3 (0-0.3); Eosinophils Percent Auto 4.9 % (0-4.4); Hematocrit 43.6 % (37.0-47.0); Hemoglobin 14.1 g/dL (12.0-15.0); Immature Granulocyte Absolute 0.02 K/mm3 (0.00-0.031); Immature Granulocyte Percent A 0.2 % (0-0.5); Lymphocytes Absolute Auto 2.54 K/mm3 (0.9-3.2); Lymphocytes Percent Auto 29.9 % (18.3-44.2); Mean Corpuscular HGB Conc 32.3 g/dl (32-36); Mean Corpuscular Hemoglobin 28.8 pg (26-34); Mean Corpuscular Volume 89.2 fl (80-100); Mean Platelet Volume 9.4 fl (7.4-10.4); Monocytes Absolute Auto 0.7 K/mm3 (0.1-0.6); Monocytes Percent Auto 8.7 % (2.6-8.5); Neutrophils Absolute Auto 4.7 K/mm3 (1.3-6.7); Neutrophils Percent Auto 55.4 % (45.5-73.1); Platelet Count Result 250 k/mm3 (150-375); Red Blood Count 4.89 M/mm3 (4.2-5.4); White Blood Count 8.5 K/mm3 (4.5-10.0)
[2024-10-19 10:30] LABS: Blood Urea Nitrogen 17 mg/dL (8-26); Carbon Dioxide 28 mmol/L (22-30); Chloride 99 mmol/L (98-109); Estimated Glomerular Filt Rate > 60; Glucose 125 mg/dL (70-105); Ionized Calcium (POC) 1.29 mmol/L (1.11-1.31); Potassium 4.3 mmol/L (3.5-4.9); Sodium 139 mmol/L (138-146)
[2024-10-19 20:52] LABS: Alanine Aminotransferase 30 U/L (6-35); Albumin Level 4.6 g/dL (3.5-5.1); Alkaline Phosphatase 111 U/L (38-126); Anion Gap 8 mmol/L (4-12); Aspartate Amino Transferase 34 U/L (14-36); Bilirubin,Total 0.4 mg/dL (0.2-1.3); Blood Urea Nitrogen 18 mg/dL (7-17); Calcium 10.2 mg/dL (8.4-10.2); Carbon Dioxide 28 mmol/L (22-30); Chloride 100 mmol/L (98-107); Estimated Glomerular Filt Rate > 60; Glucose 109 mg/dL (65-110); Potassium 4.5 mmol/L (3.4-5.0); Sodium 136 mmol/L (137-145)
== END 2024-10-19 09:56 | disposition home or self-care (01) ==
LOC: ANHLAB 09:58
PROVIDERS: PCP Internal Medicine Infectious Disease; Visit Provider Internal Medicine Hematology & Oncology
DX: C34.11 Malignant neoplasm of upper lobe, right bronchus or lung (principal)
CPT/HCPCS: 36415; 80047; 80053; 85025

== ENCOUNTER 2025-04-24 08:04 | Outpatient (CLI) | payer MEDICARE, SELFPAY ==
--- NOTE | ~2025-04-24 | US_ITS ---
Limited Abdominal Sonogram: Real-time sonographic imaging of the right upper quadrant was performed. Clinical History: Fatty liver Findings: The liver appears echogenic, with no evidence of mass lesion or bile duct dilatation. Main portal vein demonstrates normal direction of flow. The gallbladder is absent, compatible prior letitia cystectomy. The common bile duct measures 5 mm. The visualized pancreas, aorta, and IVC are unremark able. Impression: Diffuse fatty infiltration of the liver. Status post cholecystectomy. Reviewed, dictated and finalized at location . Impression: Diffuse fatty infiltration of the liver. Status post cholecystectomy.
--- OUTSIDE RECORDS SUMMARY | 2025-04-24 08:12 | XMS_ITS | Data Portability ---
Author Organization [facility] Address [address] [place] [address] Care Team Providers Care Dot Compliance Coordinator Name Role Phone YOLANDA JACKSON Psychiatrist JAIME GIRON Client Renewal Specialist ARIANE MORE Medical Oncologist SHAHEEN ZAPATA Medicine Teacher Assessment No assessment recorded. Plan of Treatment Reminders Order Date Submit Date Provider Last Modified By Organization Details Last Modified Time Details Appointments ANY 15 2024 09:00A Carlos Choi MD Not available Not available Not available Lab TSH, ultra-sen sitive, serum 2024 025 JUAN ANTONIO MEJIA, [address], [facility] [address], [place], [address], 02/21/2025 08:57:10 TSH, ultra-sen sitive, serum 2023 025 JUAN ANTONIO MEJIA, Jagdish [address], [facility] [address], [place], [address], 01/17/2025 10:13:29 basic metabolic 1998 panel, serum or plasma 2023 025 JUAN ANTONIO MEJIA, [address], [address], [place], [address], 01/17/2025 10:13:25 CBC 2023 025 JUAN ANTONIO MEJIA, [address], [address], [place], [address], 01/17/2025 10:13:30 HbA1c (hemoglob in A1c), blood 2023 025 JUAN ANTONIO [facility], [address], [address], [place], [address], 01/17/2025 10:13:28 lipid panel, serum 2023 025 JUAN ANTONIO [facility], [address], [address], [place], [address], 01/17/2025 10:13:24 microalbu min/creat inine, mass ratio, urine 2023 025 [facility], [address], [address], [place], [address], 03/17/2025 14:08:48 HbA1c (hemoglob in A1c), blood 2023 024 junima [facility], [address], [address], [place], [address], 09/19/2024 09:38:04 lipid panel, serum 2023 024 junima [facility], [address], [address], [place], [address], 09/19/2024 09:38:08 basic metabolic 1998 panel, serum or plasma 2023 024 JUAN ANTONIO [facility], [address], [address], [place], [address], 05/03/2024 10:12:59 CBC 2023 024 JUAN ANTONIO [facility], [address], [address], [place], [address], 05/03/2024 10:13:01 HbA1c (hemoglob in A1c), blood 2023 024 JUAN ANTONIO [facility], [address], [address], [place], [address], 05/03/2024 10:13:00 lipid panel, serum 2023 024 JUAN ANTONIO [facility], [address], [place], [address], 05/03/2024 10:12:58 TSH, ultra-sen sitive, serum 2023 024 JUAN ANTONIO [facility], [address] [facility] [address], [address], [place], [address], 05/03/2024 10:13:00 HbA1c (hemoglob in A1c), blood 2022 024 JUAN ANTONIO [facility], [address], [place], [address], 01/19/2024 06:17:00 lipid panel, serum 2022 024 JUAN ANTONIO [facility], [address], [place], [address], 01/19/2024 06:16:59 TSH, ultra-sen sitive, serum 2022 024 JUAN ANTONIO [facility], [address] [place] [address], [address], [place], [address], 01/19/2024 06:17:00 Referral diabetic ophthalmo logy referral 2023 025 JUAN ANTONIO [facility], [address] , [place], [address], 02/22/2025 16:44:58 gastroent erologist referral - GUY 2023 024 [facility], [address], [place], [address], 04/06/2025 14:11:39 Procedures None recorded. Surgeries None recorded. Imaging LDCT, chest, for lung cancer screening 2023 024 [facility]), [address] [place], [address], 10/14/2024 04:28:13 US, liver 2022 023 [facility] ([facility]), [address] [place], [address], 11/11/2023 10:41:04 Medication Orders pioglitaz one 15 mg tablet 2023 024 [facility], [address] [place] [address], [place], [address], 05/24/2024 16:32:22 Rybelsus 3 mg tablet 2022 024 [facility], [address] [place] [address], [id number], 02/20/2025 10:46:49 Patient TargetsNo targets recorded. Patient Instructions Encounter Date Encounter Id Patient Instructions Last Modified By Organization Details Last Modified Time 10/26/2023 [id number] influenza (flu) vaccine: care instructions oajao Not available 10/26/2023 10:06:32 hypothyroidism: care instructions oajao Not available 10/26/2023 10:28:25 Start Rybelsus U S of the liver Ophthalmology as referred Labs (Old and new orders) in January, Follow up in 6 months and PRN oajao Not available 10/26/2023 10:17:26 04/26/2024 [id number] Labs Weight loss GI in ~ 09/2024 LDCT in 09/2024 Follow up in 5 months oajao Not available 04/26/2024 11:21:14 05/24/2024 [id number] Add Pioglitazone Continue the current regimen Labs in August, LDCT as ordered by her Oncologist and to be done at (Late 09/2024) Follow up as scheduled on 09/19/2024 oajao Not available 05/24/2024 16:49:32 09/19/2024 [id number] influenza (flu) vaccine: care instructions oajao Not available 09/19/2024 09:54:42 Ophthalmology 11/2024 Labs in 12/2024 Follow up in 5 months and PRN oajao Not available 09/19/2024 10:05:07 02/20/2025 [id number] body mass index: care instructions oajao Not available 02/20/2025 14:01:22 learning about healthy weight oajao Not available 02/20/2025 14:01:22 Labs Follow up i n 5 months oajao Not available 02/20/2025 10:51:04 Reason for Referral Instrument Calibrator Referral for Steatotic liver disease GUY GUY Referring Physician: Marielena Choi, Internal Medicine, Encounter Date: 04/26/2024 Diabetic Ophthalmology Refer ral for Type 2 diabetes mellitus without complication HBA1C 7.2% Referring Physician: Marielena Choi Internal Medicine, Encounter Date: 09/19/2024 Results Created Date Observation Date Name Description Value Unit Range Abnormal Flag Note LastModifiedBy Organization Detail LastModifiedTime 08/16/2008/16/2024 COLOG UARD cologuard result CANCEL LED - ORDER D not applic able Not Available [facility] (Cologuard Orders Only) [address], [place], [address], 08/16/2024 12:31:58 01/18/2001/19/2024 LIPID PANEL cholesterol, total 120 mg/dL 100-19 9 Not Available [facility] ([facility]) [address], [place], [address], 01/19/2024 06:16:59 01/18/20 24 01/19/2024 LIPID PANEL triglyceride s 92 mg/dL 0-149 Not Available [facility] ([facility]) [address] [place], [address], 01/19/2024 06:16:59 01/18/20 24 01/19/2024 LIPID PANEL HDL cholesterol 54 mg/dL >39 Not Available [facility] ([facility]) [address] [place], [address], 01/19/2024 06:16:59 01/18/20 24 01/19/2024 LIPID PANEL VLDL cholesterol dave 18 mg/dL 5-40 Not Available [facility] ([facility]) [address] [place], [address], 01/19/2024 06:16:59 01/18/20 24 01/19/2024 LIPID PANEL LDL chol calc ([facility]) 48 mg/dL 0-99 Not Available [facility] ([facility]) [address] [place], [address], 01/19/2024 06:16:59 01/18/20 24 01/19/2024 TSH RFX ON ABNOR MAL TO FREE T4 TSH 1.570 uIU/m L 0.450- 4.500 Not Available [facility] ([facility]) [address] [place], [address], 01/19/2024 06:16:59 01/18/20 24 01/18/2024 HEMOG LOBIN A1C hemoglobin A1C 8.4 % 4.8-5. 6 above high normal Predi abete s: 5.7 - 6.4 Diabe pierce: >6.4 Glyce pete contr ol for adult s with diabe pierce: <7.0 Not Available [facility] ([facility]) [address] [place], [address], 01/19/2024 06:17:00 05/02/20 24 05/03/2024 LIPID PANEL cholesterol, total 120 mg/dL 100-19 9 Not Available [facility] ([facility]) [address] [place], [address], 05/03/2024 10:12:58 05/02/20 24 05/03/2024 LIPID PANEL triglyceride s 97 mg/dL 0-149 Not Available [facility] ([facility]) [address] [place], [address], 05/03/2024 10:12:58 05/02/20 24 05/03/2024 LIPID PANEL HDL cholesterol 54 mg/dL >39 Not Available [facility] ([facility]) [address] [place], [address], 05/03/2024 10:12:58 05/02/20 24 05/03/2024 LIPID PANEL VLDL cholesterol dave 18 mg/dL 5-40 Not Available [facility] ([facility]) [address] [place], [address], 05/03/2024 10:12:58 05/02/20 24 05/03/2024 LIPID PANEL LDL chol calc ([facility]) 48 mg/dL 0-99 Not Available [facility] ([facility]) [address] [place], [address], 05/03/2024 10:12:58 05/02/20 24 05/03/2024 BASIC METAB OLIC PANEL (7) glucose 137 mg/dL 70-99 above high normal Not Available [facility] ([facility]) [address] [place], [address], 05/03/2024 10:12:59 05/02/20 24 05/03/2024 BASIC METAB OLIC PANEL (7) BUN 11 mg/dL 8-27 Not Available [facility] ([facility]) [address] [place], [address], 05/03/2024 10:12:59 05/02/20 24 05/03/2024 BASIC METAB OLIC PANEL (7) creatinine 0.60 mg/dL 0.57-1 .00 Not Available [facility] ([facility]) [address] [facility] [place], [address], 05/03/2024 10:12:59 05/02/20 24 05/03/2024 BASIC METAB OLIC PANEL (7) eGFR 100 mL/mi n/1.7 3 >59 Not Available [facility] ([facility]) [address] [place], [address], 05/03/2024 10:12:59 05/02/20 24 05/03/2024 BASIC METAB OLIC PANEL (7) BUN/creatini ne ratio 18 12-28 Not Available [facility] ([facility]) [address] [facility] [place], [address], 05/03/2024 10:12:59 05/02/20 24 05/03/2024 BASIC METAB OLIC PANEL (7) sodium 140 mmol/ L 134-14 4 Not Available [facility] ([facility]) [address] [facility] [place], [address], 05/03/2024 10:12:59 05/02/20 24 05/03/2024 BASIC METAB OLIC PANEL (7) potassium 4.3 mmol/ L 3.5-5. 2 Not Available [facility] ([facility]) [address] [facility] [place], [address], 05/03/2024 10:12:59 05/02/20 24 05/03/2024 BASIC METAB OLIC PANEL (7) chloride 103 mmol/ L 96-106 Not Available [facility] ([facility]) [address] [facility] [place], [address], 05/03/2024 10:12:59 05/02/20 24 05/03/2024 BASIC METAB OLIC PANEL (7) carbon dioxide, total 22 mmol/ L 20-29 Not Available [facility] ([facility]) [address] [facility] [place], [address], 05/03/2024 10:12:59 05/02/20 24 05/03/2024 HEMOG LOBIN A1C hemoglobin A1C 9.1 % 4.8-5. 6 above high normal Predi abete s: 5.7 - 6.4 Diabe pierce: >6.4 Glyce pete contr ol for adult s with diabe pierce: <7.0 Not Available [facility] ([facility]) [address] [facility], [place], [address], 05/03/2024 10:12:59 05/02/20 24 05/03/2024 TSH TSH 1.230 uIU/m L 0.450- 4.500 Not Available [facility] ([facility]) [address] [facility], [place], [address], 05/03/2024 10:13:00 05/02/20 24 05/03/2024 CBC, PLATE LET, NO DIFFE RENTI AL WBC 7.8 x10e3 /uL 3.4-10 .8 Not Available [facility] ([facility]) [address] [facility], [place], [address], 05/03/2024 10:13:01 05/02/20 24 05/03/2024 CBC, PLATE LET, NO DIFFE RENTI AL RBC 4.84 x10e6 /uL 3.77-5 .28 Not Available [facility] ([facility]) [address] [place], [address], 05/03/2024 10:13:01 05/02/20 24 05/03/2024 CBC, PLATE LET, NO DIFFE RENTI AL hemoglobin 13.6 g/dL 11.1-1 5.9 Not Available [facility] ([facility]) [address] [place], [address], 05/03/2024 10:13:01 05/02/20 24 05/03/2024 CBC, PLATE LET, NO DIFFE RENTI AL hematocrit 42.0 % 34.0-4 6.6 Not Available [facility] ([facility]) [address] [facility], [place], [address], 05/03/2024 10:13:01 05/02/20 24 05/03/2024 CBC, PLATE LET, NO DIFFE RENTI AL MCV 87 fL 79-97 Not Available [facility] ([facility]) [address] [facility], [place], [address], 05/03/2024 10:13:01 05/02/20 24 05/03/2024 CBC, PLATE LET, NO DIFFE RENTI AL MCH 28.1 pg 26.6-3 3.0 Not Available [facility] ([facility]) [address] [facility], [place], [address], 05/03/2024 10:13:01 05/02/20 24 05/03/2024 CBC, PLATE LET, NO DIFFE RENTI AL MCHC 32.4 g/dL 31.5-3 5.7 Not Available [facility] ([facility]) [address] [facility], [place], [address], 05/03/2024 10:13:01 05/02/20 24 05/03/2024 CBC, PLATE LET, NO DIFFE RENTI AL RDW 13.1 % 11.7-1 5.4 Not Available [facility] ([facility]) [address] [facility], [place], [address], 05/03/2024 10:13:01 05/02/20 24 05/03/2024 CBC, PLATE LET, NO DIFFE RENTI AL platelets 280 x10e3 /uL 150-45 0 Not Available [facility] ([facility]) [address] [facility], [place], [address], 05/03/2024 10:13:01 07/12/20 24 07/12/2024 Hemog lobin A1c/H emogl obin. total in Blood hemoglobin A1C, POC 7 % low: 4%high : 5.6% Hemog lobin A1C, POC 7.0 4.0 - 5.6 % Not Available Not Available 01/02/2025 16:18:55 07/12/20 24 07/12/2024 Hemog lobin A1c/H emogl obin. total in Blood interpretati on and review of laboratory results ABNORM AL Not Available Not Available 16:18:55 08/17/2008/18/2024 LIPID PANEL cholesterol, total 137 mg/dL 100-19 9 Not Available [facility] ([facility]) [address] [place], [address], 08/18/2024 06:22:06 08/17/2008/18/2024 LIPID PANEL triglyceride s 94 mg/dL 0-149 Not Available [facility] ([facility]) [address] [place], [address], 08/18/2024 06:22:06 08/17/2008/18/2024 LIPID PANEL HDL cholesterol 64 mg/dL >39 Not Available [facility] ([facility]) [address] [place], [address], 08/18/2024 06:22:06 08/17/2008/18/2024 LIPID PANEL VLDL cholesterol dave 17 mg/dL 5-40 Not Available [facility] ([facility]) [address] [place], [address], 08/18/2024 06:22:06 08/17/2008/18/2024 LIPID PANEL LDL chol calc ([facility]) 56 mg/dL 0-99 Not Available [facility] ([facility]) [address] [place], [address], 08/18/2024 06:22:06 08/17/2008/18/2024 HEMOG LOBIN A1C hemoglobin A1C 7.2 % 4.8-5. 6 above high normal Predi abete s: 5.7 - 6.4 Diabe pierce: >6.4 Glyce pete contr ol for adult s with diabe pierce: <7.0 Not Available [facility] ([facility]) [address] [place], [address], 08/18/2024 06:22:07 01/17/20 25 01/17/2025 LIPID PANEL cholesterol, total 144 mg/dL 100-19 9 Not Available [facility] ([facility]) [address] [place], [address], 01/17/2025 10:13:24 01/17/20 25 01/17/2025 LIPID PANEL triglyceride s 109 mg/dL 0-149 Not Available [facility] ([facility]) [address] [place], [address], 01/17/2025 10:13:24 01/17/20 25 01/17/2025 LIPID PANEL HDL cholesterol 52 mg/dL >39 Not Available [facility] ([facility]) [address] [place], [address], 01/17/2025 10:13:24 01/17/20 25 01/17/2025 LIPID PANEL VLDL cholesterol dave 20 mg/dL 5-40 Not Available [facility] ([facility]) [address] [place], [address], 01/17/2025 10:13:24 01/17/20 25 01/17/2025 LIPID PANEL LDL chol calc ([facility]) 72 mg/dL 0-99 Not Available [facility] ([facility]) [address] [place], [address], 01/17/2025 10:13:24 01/17/20 25 01/17/2025 BASIC METAB OLIC PANEL (7) glucose 156 mg/dL 70-99 above high normal Not Available [facility] ([facility]) [address] [place], [address], 01/17/2025 10:13:25 01/17/20 25 01/17/2025 BASIC METAB OLIC PANEL (7) BUN 13 mg/dL 8-27 Not Available [facility] ([facility]) [address] [facility] [place], [address], 01/17/2025 10:13:25 01/17/20 25 01/17/2025 BASIC METAB OLIC PANEL (7) creatinine 0.51 mg/dL 0.57-1 .00 below low normal Not Available [facility] ([facility]) [address] [facility] [place], [address], 01/17/2025 10:13:25 01/17/20 25 01/17/2025 BASIC METAB OLIC PANEL (7) eGFR 104 mL/mi n/1.7 3 >59 Not Available [facility] ([facility]) [address] [facility], [place], [address], 01/17/2025 10:13:25 01/17/20 25 01/17/2025 BASIC METAB OLIC PANEL (7) BUN/creatini ne ratio 25 12-28 Not Available [facility] ([facility]) [address] [facility] [place], [address], 01/17/2025 10:13:25 01/17/20 25 01/17/2025 BASIC METAB OLIC PANEL (7) sodium 144 mmol/ L 134-14 4 Not Available [facility] ([facility]) [address] [place], [address], 01/17/2025 10:13:25 01/17/20 25 01/17/2025 BASIC METAB OLIC PANEL (7) potassium 4.6 mmol/ L 3.5-5. 2 Not Available [facility] ([facility]) [address] [place], [address], 01/17/2025 10:13:25 01/17/20 25 01/17/2025 BASIC METAB OLIC PANEL (7) chloride 106 mmol/ L 96-106 Not Available [facility] ([facility]) [address] [place], [address], 01/17/2025 10:13:25 01/17/20 25 01/17/2025 BASIC METAB OLIC PANEL (7) carbon dioxide, total 23 mmol/ L 20-29 Not Available [facility] ([facility]) [address] [facility] [place], [address], 01/17/2025 10:13:25 01/17/2001/16/2025 UNABL E TO VOID unable to void COMMEN T Patie nt unabl e to void. Urine to be colle cted at a later date. Not Available [facility] ([facility]) [address] [facility], [place], [address], 01/17/2025 10:13:26 01/17/2001/17/2025 HEMOG LOBIN A1C hemoglobin A1C 7.8 % 4.8-5. 6 above high normal Predi abete s: 5.7 - 6.4 Diabe pierce: >6.4 Glyce pete contr ol for adult s with diabe pierce: <7.0 Not Available [facility] ([facility]) [address] [place], [address], 01/17/2025 10:13:27 01/17/20 25 01/17/2025 TSH TSH 0.341 uIU/m L 0.450- 4.500 below low normal Not Available [facility] ([facility]) [address] [place], [address], 01/17/2025 10:13:29 01/17/20 25 01/17/2025 CBC, PLATE LET, NO DIFFE RENTI AL WBC 6.3 x10e3 /uL 3.4-10 .8 Not Available [facility] ([facility]) [address] [place], [address], 01/17/2025 10:13:30 01/17/20 25 01/17/2025 CBC, PLATE LET, NO DIFFE RENTI AL RBC 4.88 x10e6 /uL 3.77-5 .28 Not Available [facility] ([facility]) [address] [facility], [place], [address], 01/17/2025 10:13:30 01/17/2001/17/2025 CBC, PLATE LET, NO DIFFE RENTI AL hemoglobin 14.1 g/dL 11.1-1 5.9 Not Available [facility] ([facility]) [address] [facility], [place], [address], 01/17/2025 10:13:30 01/17/2001/17/2025 CBC, PLATE LET, NO DIFFE RENTI AL hematocrit 43.1 % 34.0-4 6.6 Not Available [facility] ([facility]) [address] [facility], [place], [address], 01/17/2025 10:13:30 01/17/2001/17/2025 CBC, PLATE LET, NO DIFFE RENTI AL MCV 88 fL 79-97 Not Available [facility] ([facility]) [address] [facility], [place], [address], 01/17/2025 10:13:30 01/17/2001/17/2025 CBC, PLATE LET, NO DIFFE RENTI AL MCH 28.9 pg 26.6-3 3.0 Not Available [facility] ([facility]) [address] [facility], [place], [address], 01/17/2025 10:13:30 01/17/2001/17/2025 CBC, PLATE LET, NO DIFFE RENTI AL MCHC 32.7 g/dL 31.5-3 5.7 Not Available [facility] ([facility]) [address] [facility], [place], [address], 01/17/2025 10:13:30 01/17/20 25 01/17/2025 CBC, PLATE LET, NO DIFFE RENTI AL RDW 12.4 % 11.7-1 5.4 Not Available [facility] ([facility]) [address] [facility], [place], [address], 01/17/2025 10:13:30 01/17/20 25 01/17/2025 CBC, PLATE LET, NO DIFFE RENTI AL platelets 273 x10e3 /uL 150-45 0 Not Available [facility] ([facility]) [address] [facility], [place], [address], 01/17/2025 10:13:30 01/19/20 25 01/18/2025 Hemog lobin A1c/H emogl obin. total in Blood hemoglobin A1C, POC 7.5 % low: 4%high : 5.6% Hemog lobin A1C, POC 7.5 4.0 - 5.6 % Not Available Not Available 01/18/2025 16:02:30 01/19/20 25 01/18/2025 Hemog lobin A1c/H emogl obin. total in Blood interpretati on and review of laboratory results ABNORM AL Not Available Not Available 16:02:30 02/21/20 25 02/21/2025 TSH TSH 0.284 uIU/m L 0.450- 4.500 below low normal Not Available [facility] ([facility]) [address] [facility], [place], [address], 02/21/2025 08:57:10 11/11/20 23 11/11/2023 US, liver No observ ation record ed. [facility] [address], [place], [address], 04/26/2024 09:44:18 10/13/20 24 10/12/2024 LDCT, chest , for lung cance r scree liliana No observ ation record ed. [facility] [address] [facility] [address], [place], [address], 02/20/2025 10:43:55 Result Notes None recorded. Problems Name Problem SNOMED Code Status Onset Date Resolution Date Notes Provider Name and Address Organization Details Recorded Time Mammogram declined 334422943 Active 2017 Not Available [facility] 4 07:50:25 Nicotine dependenc e 81609481 Active 2017 Not Available [facility] 4 07:50:25 Colon cancer screening declined 53691070645 109 Active 2017 Not Available [facility] 4 07:50:25 Colonosco py declined 45830610742 9100 Active 2017 Not Available [facility] 4 07:50:25 Tobacco dependenc e in remission 313750198 Active 2018 Not Available [facility] 4 07:50:25 Body mass index 30+ - obesity 616465707 Active 2018 Not Available [facility] 4 07:50:25 Squamous cell carcinoma of lung 735894685 Active 2018 Not Available [facility] 4 07:50:25 History of lung lobectomy 65193765379 631894 Active 2018 Not Available [facility] 4 07:50:25 Steatotic liver disease 222100309 Active 2019 Not Available [facility] 4 07:50:25 Thoracic spondylos is 623736195 Active 2019 Not Available [facility] 4 07:50:25 Postmenop ausal bleeding 00184668 Active 2021 US showed endometri al thickness of 8.1 mm Not Available [facility] 4 07:50:25 Breast cancer screening declined 36441964201 028325 Active 2023 Marielena Choi MD Attn: Accounting ,[address] [facility], [place], [address] , [place] [facility] 4 10:02:26 Acquired hypothyro idism 111982049 Active 2024 Marielena Choi MD Attn: Accounting ,[address] [facility], [place], [address] , [place] [facility] 5 09:14:39 Schizophr enia 28626599 Active 2016 Not Available [facility] 4 07:50:25 Type 2 diabetes mellitus without complicat ion 797594725 Active 2016 Not Available [facility] 4 07:50:25 Disorder of lipid metabolis m 461999570 Active 2016 Not Available [facility] 4 07:50:25 Problem Notes None recorded. Procedures Surgical History Date Name Laterality Status Provider Name and Address Organization Details Recorded Time 04/26/20 24 Diabetic Foot Exam completed Marielena Choi MD Attn: Accounting, [address] [place], [address], [place] [facility] 04/26/2024 10:03:51 01/08/20 22 Endometrial Biopsy completed [facility] Attn: Accounting, [address] [place], [address], [place] [facility] 01/08/2022 13:14:49 10/10/20 19 lobectomy of lung completed Marielena Choi MD Attn: Accounting, [address] [place], [address], [place] [facility] 10/28/2019 13:46:03 09/01/20 17 Date of Last Pap Smear completed Arleen Mccall MA [place] - [facility] 09/01/2017 15:48:33 11/16/18 87 LEEP completed Arleen Mccall MA [place] [facility] 09/01/2017 15:54:19 Back Surgery completed Kimmie Roberson MA [place] - [facility] 04/06/2017 14:59:38 Cholecystectomy completed Marielena Choi MD Attn: Accounting, [address] [place], [address], [place] [facility] 04/06/2017 15:08:25 Tonsillectomy completed Marielena Choi MD Attn: Accounting, [address] [place], [address], [place] [facility] 04/06/2017 15:08:31 Imaging Results None recorded. Procedure Notes None recorded. Medical Equipment None Reported. Allergies Allergen ID Allergen Name Allergen Category Reaction Reaction Severity Criticality Documentation Date Start Date Code Code System Note Provider Name and Address Organization Details Recorded Time 176856 glimepiri de medicatio n rash Not available Not available 09/17/20202019 68287 RxNorm Marielena Choi MD Attn: Marilia dean,[address] [facility], [place], [address], [facility] 4 09:48:07 356181 Jardiance medicatio n nausea Not available Not available 10/01/2020 36600 59 RxNorm Marielena Choi MD Attn: Marilia dean,[address] [facility], [place], [address], [facility] 0 12:58:02 27489 sulfur dioxide medicatio n itching Not available Not available 05/29/2017 55561 79 RxNorm LUCILA Rojas, [facility] 7 15:37:59 Medications Name Sig Start Date Stop Date Status Note LastModified by Organization Details LastModified Time pioglitaz one 15 mg tablet TAKE 1 TABLET BY MOUTH ONCE DAILY active Not Available Not Available No t Available metformin 500 mg tablet TAKE 2 TABLETS BY MOUTH DAILY WITH BREAKFAS T active Not Available Not Available No t Available nicotine 14 mg/24 hr daily transderm al patch 04/10 completed Not Available Not Available Not Available azithromy jackie 250 mg tablet TAKE 2 TABLETS (500 MG) BY ORAL ROUTE ONCE DAILY FOR 1 DAY THEN 1 TABLET (250 MG) BY ORAL ROUTE ONCE DAILY FOR 4 DAYS 12/29 completed Not Available Not Available Not Available pravastat in 40 mg tablet TAKE 1 TABLET BY MOUTH ONCE DAILY AT BEDTIME 09/02 completed Not Available Not Available Not Available hydrocodo ne 5 mg-acetam inophen 325 mg tablet 04/10 completed Not Available Not Available Not Available olanzapin e 5 mg tablet TAKE 1 TABLET BY MOUTH ONCE DAILY AT BEDTIME active Not Available Not Available No t Available loperamid e 2 mg tablet Two tablets by mouth once.the nOne tablet by mouth after each loose bowel movement .(DO NOT EXCEED A TOTAL OF 8 TABLETS IN 24 HOURS) 01/02 completed It had stopped Not Available Not Available Not Available olanzapin e 10 mg tablet 08/30 completed Not Available Not Available Not Available acetamino phen 300 mg-codein e 30 mg tablet TAKE 1 TABLET BY MOUTH 4 TIMES DAILY NEEDED FOR PAIN 10/26 completed Not Available Not Available Not Available olanzapin e 2.5 mg tablet TAKE 1 TABLET BY MOUTH AT BEDTIME FOR 30 DAYS 09/02 completed Not Available Not Available Not Available glimepiri de 2 mg tablet TAKE 2 TABLETS BY MOUTH once DAILY 02/20 completed Not Available Not Available Not Available glimepiri de 1 mg tablet TAKE 1 TABLET BY MOUTH ONCE DAILY WITH MEALS FOR 30 DAYS 09/17 completed Rash Not Available Not Available Not Available levothyro xine 75 mcg tablet TAKE 1 TABLET BY MOUTH IN THE MORNING 02/27 completed Decrease d to 50 mcg Not Available Not Available Not Available Euthyrox 25 mcg tablet TAKE 1 TABLET BY MOUTH ONCE DAILY IN THE MORNING 11/19 completed Not Available Not Available Not Available levothyro xine 50 mcg tablet TAKE 1 TABLET BY MOUTH ONCE DAILY active Not Available Not Available No t Available cephalexi n 500 mg capsule TAKE 1 CAPSULE BY MOUTH EVERY 6 HOURS DIRECTED FOR 7 DAYS 01/08 completed Not Available Not Available Not Available glimepiri de 4 mg tablet TAKE 1 TABLET BY MOUTH ONCE DAILY BEFORE BREAKFAS T active Not Available Not Available No t Available nicotine 21 mg/24 hr daily transderm al patch 04/10 completed Not Available Not Available Not Available fluoxetin e 10 mg capsule TAKE 1 CAPSULE BY MOUTH ONCE DAILY active Not Available Not Available No t Available gabapenti n 100 mg capsule Take 1 capsule every day by oral route at bedtime. 04/10 completed Not Available Not Available Not Available metformin ER 500 mg tablet,ex tended release 24 hr TAKE 2 TABLETS BY MOUTH ONCE DAILY IN THE MORNING active Not Available Not Available No t Available olanzapin e 20 mg tablet Take 1 tablet every day by oral route at bedtime for 30 days. 08/28 completed Not Available Not Available Not Available amoxicill in 875 mg-potass ium clavulana te 125 mg tablet TAKE 1 TABLET BY MOUTH EVERY 12 HOURS DIRECTED FOR 7 DAYS 11/19 completed Not Available Not Available Not Available nicotine 7 mg/24 hr daily transderm al patch 04/10 completed Not Available Not Available Not Available oxycodone 5 mg tablet 01/02 completed Not Available Not Available Not Available rosuvasta tin 20 mg tablet TAKE 1 TABLET BY MOUTH ONCE DAILY WITH SUPPER active Not Available Not Available No t Available Multivita min 50 Plus tablet Take 1 tablet every day by oral route as directed for 90 days. 2019 active Not Available Not Available Not Avai lable Vitamin C active Not Available Not Mary Kate ilable Not Available aspirin 08/30 completed Not Available Not Available Not Available cranberry active Not Available Not Mary Kate ilable Not Available Fish Oil 08/28 completed Not Available Not Available Not Available Jardiance 25 mg tablet TAKE 1 TABLET BY MOUTH ONCE DAILY DIRECTED FOR 30 DAYS 10/01 completed nausea Not Available Not Available Not Available Flublok Quad (PF) 180 mcg (45 mcg x 4)/0.5 mL IM syringe 10/28 completed Not Available Not Available Not Available Rybelsus 7 mg tablet TAKE 1 TABLET BY MOUTH ONCE DAILY DIRECTED FOR 30 DAYS 12/02 completed Not Available Not Available Not Available Rybelsus 3 mg tablet TAKE 1 TABLET BY MOUTH IN THE MORNING BEFORE BREAKFAS T 02/20 completed Not Available Not Available Not Available Mounjaro 5 mg/0.5 mL subcutane ous pen injector INJECT 5MG SUBCUTAN EOUSLY ONCE A WEEK 02/20 completed Not Available Not Available Not Available Mounjaro 2.5 mg/0.5 mL subcutane ous pen injector INJECT 2.5MG SUBCUTAN EOUSLY ONCE A WEEK FOR 28 DAYS 02/20 completed Not Available Not Available Not Available Vitals Date Recorded Body height Body mass index (BMI) Body weight Heart rate Oxygen saturation Oxygen saturation in Arterial blood by Pulse oximetry Body temperature Systolic blood pressure Diastolic blood pressure Provider Name and Address Organization Details Last Updated DateTime 5 160.02 cm 38.3 kg/m2 47300.9 5 g 68 /min 96 % 96 % 97.9 [degF] 130 mm[Hg] 76 mm[Hg] Kimmie Roberson [place] [facility] 5 10:09:20 Date Recorded Body height Body mass index (BMI) Body weight Oxygen saturation Oxygen saturation in Arterial blood by Pulse oximetry Heart rate Respiratory rate Body temperature Systolic blood pressure Diastolic blood pressure Provider Name and Address Organization Details Last Updated DateTime 4 160.02 cm 36.8 kg/m2 63949.2 1 g 95 % 95 % 66 /min 16 /min 97.9 [degF] 124 mm[Hg] 76 mm[Hg] Kimmie Roberson MA [facility] 4 09:36:09 Date Recorded Body height Body mass index (BMI) Body weight Heart rate Respiratory rate Oxygen saturation Oxygen saturation in Arterial blood by Pulse oximetry Systolic blood pressure Diastolic blood pressure Provider Name and Address Organization Details Last Updated DateTime 4 160.02 cm 36.4 kg/m2 23985.5 9 g 64 /min 18 /min 95 % 95 % 136 mm[Hg] 80 mm[Hg] Kimmie Roberson MA [facility] 4 16:25:30 Date Recorded Body height Body mass index (BMI) Body weight Respiratory rate Heart rate Oxygen saturation Oxygen saturation in Arterial blood by Pulse oximetry Systolic blood pressure Diastolic blood pressure Provider Name and Address Organization Details Last Updated DateTime 4 160.02 cm 37.4 kg/m2 18839.9 9 g 16 /min 60 /min 96 % 96 % 126 mm[Hg] 80 mm[Hg] Kimmie Roberson MA [facility] 4 09:41:24 Date Recorded Body height Body mass index (BMI) Body weight Heart rate Oxygen saturation Oxygen saturation in Arterial blood by Pulse oximetry Systolic blood pressure Diastolic blood pressure Provider Name and Address Organization Details Last Updated DateTime 3 160.02 cm 36.8 kg/m2 36040.2 1 g 64 /min 95 % 95 % 126 mm[Hg] 84 mm[Hg] Kimmie Roberson MA [facility] 3 09:59:09 Social History Question Answer Notes LastModified by Organizat ion Details LastModified Time Tobacco Smoking Status Former Smoker Stopped 2018 Marielena Choi MD Attn: Accounting,[address] [place], [address], [facility] 05/20/2022 10:11:14 Do You Have An Advance Directive? No Information not available 09/01/2017 Is Blood Transfusion Acceptable In An Emergency? Yes Information not available 09/01/2017 What Is Your Level Of Caffeine Consumption? Moderate Information not available 09/01/2017 How Much Tobacco Do You Chew? None Information not available 09/01/2017 What Type Of Diet Are You Following? REGULAR Information not available 09/01/2017 Which Illicit Or Recreational Drugs Have You Used? None Information not available 09/01/2017 Education 12 Information no t available 09/01/2017 Live Alone Or With Others? With Others Pt Lives C Boyfriend Information not available 09/01/2017 What Was The Date Of Your Most Recent Tobacco Screening? 02/20/2025 Information not available 02/20/2025 How Many Children Do You Have? 0 Information not available 09/01/2017 What Is Your Current Pack Years? 30ormorepack years Information not available 02/25/2021 Performs Monthly Self-breast Exam? Yes Information not available 09/01/2017 Do You Use Protection During Sex? Always Information not available 09/01/2017 What Is Your Relationship Status? Single Information not available 09/01/2017 Seat Belts Used Routinely Yes Information not available 09/01/2017 Are You Sexually Active? Yes Information not available 09/01/2017 At What Age Did You Start Smoking Tobacco? 21 Information not available 09/01/2017 How Much Tobacco Do You Smoke? No Information not available 08/31/2019 General Stress Level Low Information not available 09/01/2017 Do You Use Sunscreen Routinely? No Information not available 09/01/2017 Has Tobacco Cessation Counseling Been Provided? Yes Information not available 03/02/2019 On What Date Was Tobacco Cessation Counseling Provided? 05/26/2023 Information not available 05/26/2023 How Many Years Have You Smoked Tobacco? 40 Information not available 03/29/2018 How Many Years Have You Used E-cigarettes Or Vape? 5 Information not available 04/26/2024 Sex: Unknown Functional Status Question Answer Note LastModified by Organizat ion Details LastModified Time Do you use any illicit or recreational drugs? No Information not available 02/25/2021 Do you or have you ever used any other forms of tobacco or nicotine? No Information not available 02/25/2021 What is your level of alcohol consumption? None Information not available 09/01/2017 Do you or have you ever used smokeless tobacco? Never used smokeless tobacco Information not available 08/31/2019 Are you currently employed? 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 Former user of electronic cigarettes Information not available 08/31/2019 What is your exercise level? None Information not available 09/01/2017 Mental Status None recorded. Family History Relationship Description Onset Age of this Age Resolved Age Notes LastModified by Organization Details LastModified Time Mother Diabetes mellitus hdoverma Not available 2016 15:00:02 Father Diabetes mellitus hdoverma Not available 2016 15:00:07 Brother Diabetes mellitus hdoverma Not available 2016 15:00:13 Medical History Condition Response Diabetes Y COPD Y High Cholesterol Y Gynecological History Statement/Question Response Abnormal Pap Y Date of LMP 11/16/2003 STIs/STDs N HPV Vaccine N Most Recent Mammogram Current Control Method Menopause Sexually Active? Y Menses Monthly N Date of Last Pap Smear 09/01/2017 Sexual Problems? N LMP Unknown Desired Control Method None Obstetrics History GPAL:G 0 P 0 0 0 0 Type Value Multiple Births 0 Full Term 0 Induced 0 Spontaneous 0 Premature 0 Living 0 Ectopics 0 Total 0 Immunizations Vaccine Type Date Status Note Provider Nam e and Address Organization Details Recorded Time Influenza, split virus, quadrivalent, preservative 9 completed Not Available [facility] 11/26/2023 07:50:26 COVID-19, mRNA, LNP-S, PF, 100 mcg/0.5mL dose or 50 mcg/0.25mL dose 1 completed Not Available [facility] 11/26/2023 07:50:26 COVID-19 vaccine, vector-nr, [id number], PF, 0.5 mL 1 completed Not Available [facility] 11/26/2023 07:50:26 Pneumococcal conjugate PCV20, polysaccharide [id number] conjugate, adjuvant, PF 2 completed Not Available [facility] 11/26/2023 07:50:26 zoster recombinant 2 completed Not Available [facility] 11/26/2023 07:50:26 Influenza, recombinant, quadrivalent, PF 9 completed Not Available [facility] 11/26/2023 07:50:26 COVID-19, mRNA, LNP-S, PF, 30 mcg/0.3 mL dose 2 completed Not Available [facility] 11/26/2023 07:50:26 zoster recombinant 2 completed Not Available [facility] 11/26/2023 07:50:26 Influenza, split virus, quadrivalent, preservative 7 completed Not Available [facility] 12/03/2019 02:47:20 Tdap 7 completed Not Available [facility] 12/03/2019 02:34:25 pneumococcal polysaccharide PPV23 8 completed Not Available [facility] 12/03/2019 02:42:36 Influenza, split virus, quadrivalent, PF 8 completed Not Available [facility] 12/03/2019 02:48:32 Influenza, split virus, quadrivalent, preservative 0 completed LUCILA Rojas, [place] [facility] 09/12/2020 13:45:29 Influenza, split virus, quadrivalent, preservative 1 completed [place]UCIL[place] [facility] 09/02/2021 10:33:23 Influenza, split virus, quadrivalent, preservative 3 completed LUCIL[place] [facility] 11/19/2022 10:46:17 Influenza, split virus, quadrivalent, PF 3 completed Marielena Choi MD Attn: Accounting,[address] [place], [address], [facility] 10/26/2023 14:13:56 Influenza, split virus, trivalent, preservative 4 completed LUCILA Rojas, [place] [facility] 09/19/2024 12:03:13 Past Encounters Encounter ID Performer Location Encounter Start Date Encounter Closed Date Diagnosis/Indication Diagnosis SNOMED-CT Code Diagnosis ICD10 Code Diagnosis Note [id number] MD Davina Fernandez (Adult Med) [address] [place] [address] 04/06/2017 14:29:23 04/06/2017 15:33:11 General examination of patient 096463782 Z00.01 Uncontroll ed type 2 diabetes mellitus 869582011 E11.65 Tobacco de pendence syndrome 98858612 F17.290 She has declined my suggestion that she stops smoking. Screening for malignant neoplasm of breast 900257857 Z12.31 Screening for malignant neoplasm of colon 100920334 Z12.11 Screening for malignant neoplasm of cervix 211350810 Z12.4 History of psychotic disorder 5088236842 1713299 Z86.59 [id number] MD Davina Fernandez (Adult Med) [address] [place] [id number] 05/29/2017 15:31:18 05/29/2017 16:32:45 Type 2 diabetes mellitus without complication 110929648 E11.9 Diet controlled , I have reviewed her paper chart and reminded her of the diagnosis that dates back to 2013 at which time her HBA1C was 7.1, it is better now and we would continue a diabetic diet. Disorder o f lipid metabolism 202852880 E78.9 Chronic issue, restart Sofia n, side effects were discussed Viral screening 03700994 4 Z11.59 Screening for malignant neoplasm of colon 660284611 Z12.11 Colonoscopy declined 081 0107479 12852 Z53.20 Screening for malignant neoplasm of cervix 783309606 Z12.4 Schizophrenia 62688667 F 20.9 He doesn't know what it is, he just put a name out there [id number] MD Davina Fernandez (Adult Med) [address] [place] [phone] 08/28/2017 11:29:22 08/28/2017 13:13:53 Administration of influenza vaccine 74937742 Z23 Type 2 sindhu betes mellitus without complication 642570349 E11.9 Diet controlled , labs are overdue Administra tion of diphtheria, pertussis, and tetanus vaccine 671954143 Z23 Nicotine dependence 5629 4008 F17.200 Screening for malignant neoplasm of breast 176715050 Z12.31 Screening for malignant neoplasm of colon 127890731 Z12.11 [id number] MD Davina Mendez ([employer]PER[employer]) [address] [place] [id number] 09/01/2017 14:20:01 09/01/2017 16:11:26 Gynecologic examination 09378939 Z01.419 Exposure t o sexually transmissible disorder 182383642 Z20.2 Screening mammography 24 627616 Z12.31 [id number] [facility] [address] [place] [address] 0 12/29/2017 11:24:19 12/29/2017 12:15:00 Adult health examination 441161710 Z00.00 Administra tion of pneumococcal vaccine 32512767 Z23 Type 2 sindhu betes mellitus without complication 069045273 E11.9 Diet controlled , labs have been reordered. Breast scr eening declined 649477985 Z53.20 She continues to refuse a screening MMG, I don't want to get that done Ingrowing toenail 636825 009 L60.0 She has refused a referral to the senior test analyst Nicotine dependence 5629 4008 F17.200 She is not quite ready to stop [id number] Marielena Choi MD [facility] (Adult Med) [address] [place] [address] 03/29/2018 11:43:36 03/29/2018 12:11:09 Nicotine dependence 03260862 F17.200 She is not quite ready to stop Type 2 sindhu betes mellitus without complication 815244723 E11.9 Diet controlled , labs have been discussed Viral screening 88350947 4 Z11.59 Mammogram declined 08091 5004 Z53.20 RefusedI am not going to do a mammogram, I don't like them Colonoscopy declined 000 5053467 57733 Z53.20 RefusedNo , _ I just don't want to [id number] MD Davina Fernandez (Adult Med) [address] [place] [phone] 0 08/30/2018 11:36:11 08/30/2018 12:33:07 Administration of influenza vaccine 48076887 Z23 Type 2 sindhu betes mellitus without complication 739590772 E11.9 Diet controlled , labs have been discussed Medication monitoring 39 2652962 Z51.81 Mammogram declined 34034 5004 Z53.20 Refused, SBE were encouraged Pulmonary emphysema 8743 3001 J43.9 Noted on her LDCT Colonoscopy declined 977 9913776 96479 Z53.20 Refused Colon canc er screening declined 6882421814 9109 Z53.20 Refused [id number] MD Davina Fernandez (Adult Med) [address] [place] [address]170[address] 0 09/15/2018 16:15:07 09/15/2018 22:56:09 Erythrocytosis 729418255 D75.1 Possibly due to her smoking Leukocytosis 589806745 D 72.829 Type 2 sindhu betes mellitus without complication 538087554 E11.9 Diet controlled , labs were discussed Colonoscopy declined 479 0725199 29914 Z53.20 Refused again Mammogram declined 22895 5004 Z53.20 Refused [id number] MD Davina Fernandez (Adult Med) [address] [place] [address]98[address] 0 03/02/2019 16:38:44 03/02/2019 17:08:54 Type 2 diabetes mellitus without complication 576194973 E11.9 Diet controlled , labs were discussed Colon canc er screening declined 0399690375 9109 Z53.20 Refused No History of smoking 75976 37976 0615112 Z87.891 She is not quite ready to stop, No Mammogram declined 23092 5004 Z53.20 Refused No [id number] MD Davina Fernandez (Adult Med) [address] [place] [phone] 0 08/31/2019 09:24:03 08/31/2019 10:03:44 Solitary nodule of lung 614138900 R91.[address] scan of the lung 04/13/19.Sh e has been seen by the pulmonolog ist as her PET scan was positive and her biopsy is scheduled Screening for malignant neoplasm of colon 535756293 Z12.11 Body mass index 30+ - obesity 194686115 Z68.35 Type 2 sindhu betes mellitus without complication 897359064 E11.9 Diet controlled , labs were discussed Tobacco de pendence in remission 012453731 F17.201 Day 5 Mammogram declined 65790 5004 Z53.20 Refused, SBE were encouraged . Medication monitoring 39 5049226 Z51.81 [id number] MD Davina Fernandez (Adult Med) [address] [place] [address] 10/28/2019 12:44:14 10/31/2019 09:46:43 Disorder of lipid metabolism 382767683 E78.9 Long-term drug therapy 376433941 Z79.899 Squamous c ell carcinoma of lung 578035378 C34.90 T1 C N0 Mo Stage 1A History of lung lobectomy 5640440092 3394679 Z90.2 [id number] Marielena Choi MD [facility] (Adult Med) [address] [place] [phone] 0 01/02/2020 09:26:04 01/02/2020 09:55:28 Squamous cell carcinoma of lung 750805829 C34.90 T1 C N0 Mo Stage 1A She was encouraged to get her follow up CT scan done in 3 months as ordered by the Oncologist Liver func tion tests outside reference range 251719397 R94.5 Type 2 sindhu betes mellitus without complication 002497000 E11.9 Diet controlled , labs were discussed Mammogram declined 83464 5004 Z53.20 Continues to refused, monthly SBE were encouraged .I don't do those Leukocytosis 575199762 D 72.723 [id number] MD Davina Fernandez (Adult Med) [address] [place] [address] 19816[address]041 0 04/10/2020 09:37:41 04/11/2020 11:02:19 Type 2 diabetes mellitus without complication 251727391 E11.9 Diet controlled , labs were discussed Screening for malignant neoplasm of breast 210730009 Z12.31 Mammogram declined 42797 5004 Z53.20 She continues to refuse, monthly SBE were encouraged . [id number] Marielena Choi MD [facility] (Adult Med) [address] [place] [address] [id number] 0 07/12/2020 11:42:11 07/13/2020 15:20:23 Uncontrolled type 2 diabetes mellitus 046867560 E11.65 Mammogram declined 41545 5004 Z53.20 She continues to refuse. Steatotic liver disease 130803784 K76.0 Noted on her LDCT Thoracic spondylosis 387 933131 M47.814 Noted on her LDCT [id number] MD Davina Fernandez (Adult Med) [address] [place] [address] 97213-689 0 09/12/2020 11:26:30 09/12/2020 13:02:42 Administration of influenza vaccine 10147064 Z23 Uncontroll ed type 2 diabetes mellitus 444934925 E11.65 Start Amaryl, side effects were discussedD ietitian to seeA diabetic diet was discussedP t education materials on DM [id number] MD Davina Fernandez (Adult Med) [address] [place] [address] 18402-759 0 10/01/2020 08:18:57 10/02/2020 07:35:08 Uncontrolled type 2 diabetes mellitus 284319481 E11.65 Metformin had apparently caused leg swellingUn able to tolerate Amaryl due to a rash.Unabl e to tolerate Jardiance due to nausea.Unw illing to try an injectable Start Semaglutid e, side efects were discussed. She has no personal or FHX of Thyroid cancer. titian to seeEndocri nologist to see although hse is reluctant A diabetic diet was discussedP t education materials on DM [id number] MD Davina Fernandez (Adult Med) [address] [place] [address] [id number] 0 10/22/2020 08:00:02 10/23/2020 09:00:06 Uncontrolled type 2 diabetes mellitus 174024039 E11.65 Metformin had apparently caused leg swellingUn able to tolerate Amaryl due to a rash.Unabl e to tolerate Jardiance due to nausea.Unw illing to try an injectable Continue Semaglutid e 3 mg, then start the 7 mg po daily, side effects were discussed. She has no personal or FHX of Thyroid cancer.End ocrinologi st to see as previously referred. [id number] MD Davina Fernandez (Adult Med) [address] [place] [address] [id number] 0 12/05/2020 07:50:16 12/06/2020 08:29:18 Type 2 diabetes mellitus without complication 127159083 E11.9 Diet controlled , labs were discussed Mammogram declined 01458 5004 Z53.20 She continues to refuse. [id number] MD Davina Fernandez (Adult Med) [address] [place] [address] [phone] 0 02/25/2021 09:49:36 02/26/2021 07:55:30 Squamous cell carcinoma of lung 939193378 C34.90 T1 C N0 Mo Stage 1A She was encouraged to get her follow up CT scan done in 3 months as ordered by the Oncologist [facility] type 2 diabetes mellitus 588787823 E11.65 Tolerating Metformin Unable to tolerate Amaryl due to a rash. Unable to tolerate Jardiance due to nausea. Endocrinol ogist to see as previously referred. Mammogram declined 73421 5004 Z53.20 She continues to refuse, continue SBE. [id number] MD Davina Fernandez (Adult Med) [address] [place] [address] 95739-113 0 09/02/2021 09:18:40 09/03/2021 07:05:16 Administration of influenza vaccine 20142873 Z23 Colonoscopy declined 291 2015754 65619 Z53.20 Refused again on 09/02/2021 Cologuard 2019 Medication monitoring 39 1724326 Z51.81 Ingrowing nail of toe of right foot 5791765472 4016023 L60.0 Disorder o f lipid metabolism 636697229 E78.9 LDL 114 on Pravastati nSwitch to Rosuvastat in Type 2 sindhu betes mellitus without complication 545568329 E11.9 Stable, under the care of the endocrinol ogistHer HBA1C was 7 Mammogram declined 44317 5004 Z53.20 She continues to refuse, continue SBE. [id number] NAIF KOENIG (Adult Med) [address] [place] [address] [phone] 12/04/2021 08:34:57 12/05/2021 09:50:37 Gynecologic examination [id number] Z01.419 Here today for WWELMP: 2003, last pap smear 2016 with a history of abnormal pap smearsHas never had a mammogram, has declined in the pastCompla ining of intermitte nt vaginal bleeding x 6 months, concerned it may be due to new medication or increase in her medication s- urine normal in the office today- pap smear completed, will call with results Screening mammography 24 542467 Z12.31 Continues to decline, no breast symptoms today, normal CBE Postmenopa usal bleeding 67445109 N95.0 LMP: 2003Compla ining of intermitte nt vaginal bleeding x 6 months, concerned it may be due to new medication or increase in her medication s- no evidence of vaginal bleeding coming from cervix or vaginal canal on exam- will order pelvic US to rule out other causes including endometria l hyperplasi a Venereal d isease screening 078178218 Z11.3 - nuswab completed in the office today [id number] MD Davina Fernandez [facility] (Adult Med) [address] [place] [address] [phone] 12/23/2021 09:31:26 12/24/2021 09:55:43 Follow-up visit [id number] Z09 Type 2 sindhu betes mellitus without complication 123322835 E11.9 Stable, under the care of the endocrinol ogistHer HBA1C was apparently 7.5 Immunization advised 310 877553 Z71.9 Mammogram declined 03092 5004 Z53.20 She continues to refuse, continue SBE. [id number] NAIF [facility] (Peds) [address] [place] [address] [phone] 12/23/2021 10:08:32 12/25/2021 07:32:11 Administration of SARS-CoV-2 mRNA vaccine 2724545114 Z23 [id number] NAIF CHI [facility] (BAND AID MACHINE OPERATOR) [address] [place] [address] [phone] 0 01/08/2022 12:13:38 01/10/2022 07:14:26 Postmenopausal bleeding 50046836 N95.0 Patient presents after 6 months of irregular spotting. Patient received TVUS on 12-10-21 that showed endometria l thickening at 8.1mm and echogenic focus in lower endometriu m. EMB performed today in office, see procedure note for more details. Will follow up with results. Endometrium thickened 44 3666833 R93.89 Recommende d EMB to rule out endometria l hyperplasi a/malignan cy. See plan above. [id number] MD Davina Fernanedz (Adult Med) [address] [place] [address] [phone] 05/20/2022 09:43:42 05/21/2022 15:26:47 Type 2 diabetes mellitus without complication 723793714 E11.9 Stable, under the care of the endocrinol ogist who just started her on Trulicity which she cannot afford. Her HBA1C was 7.9% on 02/25/2022 Body mass index 30+ - obesity 196094253 Z68.35 Squamous c ell carcinoma of lung 778221328 C34.90 T1 C N0 Mo Stage 1A She was encouraged to get her follow up CXR, she says that she has graduated to a plain CXR Mammogram declined 83465 5004 Z53.20 She continues to refuse, continue SBE. [id number] MD Davina Fernandez (Adult Med) [address] [place] [address] [phone] 11/19/2022 09:53:49 11/20/2022 10:11:05 Type 2 diabetes mellitus without complication 635258734 E11.9 Stable, under the care of the endocrinol ogist, Dr Alayna Carson who wanted her on Trulicity which she cannot afford. Her HBA1C was 7.9% on 02/25/2022 and now 7.8% (09/17/2022 ) Body mass index 30+ - obesity 677350651 Z68.35 Mammogram declined 78870 5004 Z53.20 She continues to refuse, continue SBE. Screening for malignant neoplasm of colon 669736314 Z12.11 Cologuard -ve 09/11/2019 Immunization advised 310 194883 Z71.9 Colonoscopy declined 271 9351355 59628 Z53.20 Refused again on 09/02/2021 Col2018 Breast can cer screening declined 6457842433 1376463 Z53.20 Overweight 785163205 E66 .3 Administra tion of influenza vaccine 20403379 Z23 [id number] MD Davina Fernandez (Adult Med) [address] [place] [address] [phone] 0 05/26/2023 10:13:32 05/27/2023 11:39:44 Uncontrolled type 2 diabetes mellitus 074808763 E11.65 Tolerating Metformin Unable to tolerate Amaryl due to a rash. Unable to tolerate Jardiance due to nausea. Endocrinol ogist to see as previously referred. Immunization advised 310 183881 Z71.9 Colonoscopy declined 991 0962025 03999 Z53.20 Refused again on 05/26/20232018 Mammogram declined 93845 5004 Z53.20 She continues to refuse, continue SBE. Screening for malignant neoplasm of colon 751577294 Z12.11 Cologuard -ve 09/11/2019 [id number] MD Davina Fernandez (Adult Med) [address] [place] [address] [phone] 10/26/2023 09:36:21 10/27/2023 11:45:12 Administration of influenza vaccine 29520399 Z23 Steatotic liver disease 736333213 K76.0 Noted on her LDCT Type 2 sindhu betes mellitus without complication 207734478 E11.9 Previously under the care of the endocrinol ogist, Dr Alayna Carson who wanted her on Trulicity which she cannot afford. Her HBA1C was 7.9% on 02/25/2022, 7.8% (09/17/2022 ) and now 7.5% ()Unable to afford FarxigaI will add Rybelsus, she has no personal or FHX of Thyroid cancer. Side effects were discussed including but not limited to allergic reactions. Hypothyroidism 13725548 E03.9 [id number] MD Davina Fernandez (Adult Med) [address] [place] [address] [phone] 04/26/2024 09:26:38 04/26/2024 10:17:30 Type 2 diabetes mellitus without complication 272308344 E11.9 Uncontroll ed, HBA1C 8.4% on 01/18/2024Un able to afford RybelsusOn Glimepirid e 8 mg AM, Metformin ER 1000 mg po dailyEndoc rinologist to see OV 10/26/2023 Previously under the care of the endocrinol ogist, Dr Alayna Carson who wanted her on Trulicity which she cannot afford. Her HBA1C was 7.9% on 02/25/2022, 7.8% (09/17/2022 ) and now 7.5% ()Unable to afford FarxigaI will add Rybelsus, she has no personal or FHX of Thyroid cancer. Side effects were discussed including but not limited to allergic reactions. Steatotic liver disease 562692628 K76.0 Noted on her LDCTWeight lossGI Hypothyroidism 81402475 E03.9 History of nicotine dependence [id number] 38297733 Z87.891 Medication monitoring 39 7779298 Z51.81 Breast can cer screening declined [id number] 7341339 Z53.20 Mammogram declined 80880 5004 Z53.20 She continues to refuse to have a MMG [id number] Marielena Choi MD [facility] (Adult Med) [address] [place] [address] [phone] 05/24/2024 16:04:44 05/25/2024 15:09:14 Type 2 diabetes mellitus without complication 402942084 E11.9 HBA1C 9.1% 05/02/2024 dd Pioglitazo ne 15 mg, side effects were discussed including allergic reactions and edema.Endo crinologis t (Scheduled ) &OV 04/26/2024U ncontrolle d, HBA1C 8.4% on 01/18/2024Un able to afford RybelsusOn Glimepirid e 8 mg AM, Metformin ER 1000 mg po dailyEndoc rinologist to see OV 10/26/2023 Previously under the care of the endocrinol ogist, Dr Alayna Carson who wanted her on Trulicity which she cannot afford. Her HBA1C was 7.9% on 02/25/2022, 7.8% (09/17/2022 ) and now 7.5% ( 3)Unable to afford FarxigaI will add Rybelsus, she has no personal or FHX of Thyroid cancer. Side effects were discussed including but not limited to allergic reactions. [id number] MD Davina Fernandez (Adult Med) [address] [place] [phone] 09/19/2024 09:24:43 09/20/2024 14:20:49 Administration of influenza vaccine 33311325 Z23 Type 2 sindhu betes mellitus without complication 299839360 E11.9 Labs 08/17/2024 HBA1C 7.2%Manage d by the endocrinol ogistGlime piride 4 mg po dailyPiogl itazone 15 mg po daily OV 05/24/2024HB A1C 9.1% 05/02/2024 dd Pioglitazo ne 15 mg, side effects were discussed including allergic reactions and edema.Endo crinologis t (Scheduled ) &OV 04/26/2024U ncontrolle d, HBA1C 8.4% on 01/18/2024Un able to afford RybelsusOn Glimepirid e 8 mg AM, Metformin ER 1000 mg po dailyEndoc rinologist to see OV 10/26/2023 Previously under the care of the endocrinol ogist, Dr Alayna Carson who wanted her on Trulicity which she cannot afford. Her HBA1C was 7.9% on 02/25/2022, 7.8% (09/17/2022 ) and now 7.5% ()Unable to afford FarxigaI will add Rybelsus, she has no personal or FHX of Thyroid cancer. Side effects were discussed including but not limited to allergic reactions. Medication monitoring 39 2748068 Z51.81 Acquired hypothyroidism 776701791 E03.9 [id number] MD Davina Fernandez (Adult Med) [address] [place] [address] 02/20/2025 09:56:23 02/21/2025 12:15:16 Body mass index 30+ - obesity 961190797 Z68.35 Type 2 sindhu betes mellitus without complication 071740593 E11.9 Labs 01/18/2025 HBA1C 7.5%She can come to the clinic with her GLP-1 agonist and the staff will administer the medication once a week and also train her on how to administer the medication if she is willing. She did not agree, but she will think this over. OV 09/19/2024 Labs 08/17/2024 HBA1C 7.2%Manage d by the endocrinol ogeusebioGlime piride 4 mg po dailyPiogl itazone 15 mg po daily OV 05/24/2024HB A1C 9.1% 05/02/2024 dd Pioglitazo ne 15 mg, side effects were discussed including allergic reactions and edema.Endo crinologis t (Scheduled ) &OV 04/26/2024U ncontrolle d, HBA1C 8.4% on 01/18/2024Un able to afford RybelsusOn Glimepirid e 8 mg AM, Metformin ER 1000 mg po dailyEndoc rinologist to see OV 10/26/2023 Previously under the care of the endocrinol ogist, Dr Alayna Carson who wanted her on Trulicity which she cannot afford. Her HBA1C was 7.9% on 02/25/2022, 7.8% (09/17/2022 ) and now 7.5% ()Unable to afford FarxigaI will add Rybelsus, she has no personal or FHX of Thyroid cancer. Side effects were discussed including but not limited to allergic reactions. Acquired hypothyroidism 310957927 E03.9 Health Concerns Section Related Observation LastModified by Organization Detai ls LastModified Time None Recorded Concern Status LastModified by Organization Details LastModified Time None Recorded Advance Directives Directive N: Payers Encounter Date Sequence Insurance Name Policy Number Policy Awan Covered Member ID Awan Member ID Guarantor Name 10/26/2023 1 [place] [id number] 04/26/2024 1 [place] [id number] Dulce Tessa [facility] [id number] [facility] 05/24/2024 1 [place] [id number] [facility] [id number] [facility] 09/19/2024 2 [place] [id number] [facility] [id number] [facility] 09/19/2024 1 [place] Dulce Melissa [id number] Dulce Melissa 02/20/2025 2 [place] [id number] Dulce Melissa [id number] Dulce Melissa 02/20/2025 1 [place] Dulce Melissa [id number] Dulce Melissa Notes Date Note Type Note Provider Name and Address Organization Details Recorded Time 10/26/2023 text/html Diabetes F/URepo rted bypatient.Labs:last A1C result: 7.5 Ms Melissa returns, she was seen by the home inspector. She apparently has a high deductible and cannot afford injectables, Farxiga samples were provided but she could not afford the medication after she finished the samples. Marielena Choi MD Attn: [address] [place], [address], [facility] 11/12/2023 10:20:47 04/26/2024 text/html Diabetes F/URepo rted bypatient.Labs:last A1C result: 8.4% Context:normal range of home blood sugars (in the low 100s); seeing eye doctor regularly; checking feet regularly; taking aspirin daily; not missing doses of medications; no side effects from medications Associated Symptoms:no weight gain; no weight loss; no dizziness; no sweats; no headaches; no confusion; no increased thirst; no increased appetite; no increased urination; no blurred vision; no numbness of feet; no calluses on feet I don't really check itJust a normal check upCan you wait until I might....... 64 to see another doctor Doing well, unwilling to get seen by GI or have her CT scan done until her Medicare kicks in. Marielena Choi MD Attn: Accounting[address] [place], [address], [facility] 04/26/2024 11:21:25 05/24/2024 text/html Diabetes F/URepo rted bypatient.Review finger sticks:fastin Labs:last A1C result: 9.1% Context:normal range of home blood sugars (in the low 100s); seeing eye doctor regularly; checking feet regularly; taking aspirin daily; not missing doses of medications; no side effects from medications Associated Symptoms:no weight gain; no dizziness; no sweats; no headaches; no confusion; no increased thirst; no increased appetite; no increased urination; no blurred vision; no numbness of feet; no calluses on feet;weight loss (3 lbs) I took it the other day, it was normalI didn't have any problems, I could not afford it Marielena Choi MD Attn: Accounting[address] [place], [address], [facility] 05/24/2024 16:49:49 09/19/2024 text/html Diabetes F/URepo rted bypatient.Labs:last A1C result: 7.2% Context:taking aspirin daily; not missing doses of medications; no side effects from medications Associated Symptoms:no weight loss; no dizziness; no sweats; no headaches; no confusion; no increased thirst; no increased appetite; no increased urination; no blurred vision; no numbness of feet; no calluses on feet;weight gain (6 lbs)Medicare Annual Wellness VisitReported bypatient.Diet and Nutrition:healthy diet; discussed vitamin and supplement use Fracture Risk:no history of fractures; no recent explained fracture; no sudden unexplained fractures; no previous musculoskeletal injuries Physical Activity:exercises on a regular basis; recent increase in physical activity; good physical condition Depression Risk:never feels sad, empty, or tearful; no loss of interest in activities; no significant changes in weight; no sleep disturbances or insomnia; no agitation; no loss of energy; no feelings of worthlessness or guilt; no thoughts of suicide; no history of depression;history of mood disorders Orientation:no disorientation to time; no disorientation to date; no disorientation to place Concentration and Memory:no decreased concentrating ability; no memory lapses or loss; does not forget words Speech/Motor difficulties:no speech difficulties; no difficulty expressing formulated concepts; no difficulty with fine manipulative tasks; no difficulty writing/copying; no slowed reaction time; does not knock things over when trying to pick them up Hearing:no loss of hearing Vision:worse both distance and near Activities of Daily Living:able to bathe with limited or no assistance; able to contol urination and bowels; able to dress with limited or no assistance; able to feed self with limited or no assistance; able to get out of chair or bed with limited or no assistance; able to groom with limited or no assistance; able to toilet with limited or no assistance Instrumental Activities of Daily Living:able to do house work with limited or no assistance; able to grocery shop with limited or no assistance; able to manage medications with limited or no assistance; able to manage money with limited or no assistance; able to prepare meals with limited or no assistance; able to use the phone with limited or no assistance Falls Risk Assessment:no frequent falls while walking; no fall in the past year; no fall since last visit; no dizziness/vertigo Home Safety:no unsafe saira hazzards; no unsafe stairs; no unsafe gas appliances; working smoke/CO detectors; wears protective head gear for biking/high velocity; use of seatbelts; no vision or hearing loss while driving; has hand bars in the bathroom/shower; good lighting in the home He reduced it to 4 mg once a dayJust a follow up Ms Meilssa is doing well, she was seen by the home inspector Dr Hawthorne and the dose of her Glimepiride was changed to 4 mg once a day Marielena Choi MD Attn: Accounting[address] [place], [address], [facility] 09/19/2024 10:12:09 02/20/2025 text/html Diabetes F/URepo rted bypatient.Labs:last A1C result: 7.5% Context:normal range of home blood sugars (in the low 100s); seeing eye doctor regularly; checking feet regularly; taking aspirin daily; not missing doses of medications; no side effects from medications Associated Symptoms:no weight loss; no dizziness; no sweats; no headaches; no confusion; no increased thirst; no increased appetite; no increased urination; no blurred vision; no numbness of feet; no calluses on feet;weight gain (5 lbs) I don't want to take the shots Her insurance will no longer cover Rybelsus, it is not on their formulary and they want her on an injectable, possibly Ozempic. She picked it up from the pharmacy but she is not willing to take an injectable. Her home inspector appealed the denial and it was denied again. Marielena Choi MD Attn: [address] [place], [address], [facility] 02/20/2025 13:33:16 OBGyn Episode No OBEpisode recorded.
--- OUTSIDE RECORDS SUMMARY | 2025-04-24 08:12 | XMS_ITS | Clinical Summary ---
Author Organization [facility] Nhung dahl Yareli Address [address] [place] [address] Care Team Providers Care Wheel Presser Name Role Phone Marielena Choi MD Primary Care Provider [phone] Allergies Active Allergy Reactions Criticality Noted Date Comments Empagliflozin Nausea and Vomiting Low 10/09/2020 Nickel Rash Low 10/10/2019 Sulfa (Sulfonamide Antibiotics) Itching Low 09/17 Sulfamethoxazole-Trimethoprim Itching Low 2018 Sulfur Dioxide Itching Low 10/25/2019 Medications ascorbic acid, vitamin C, (VITAMIN C) 100 mg Tablet Vitamin C Active Cranberry 400 mg Capsule cranberry Active multivitamins-m inerals-lutein (Multivitamin 50 Plus) Tablet every 24 hours. Active glimepiride (AMARYL) 2 mg tablet Take 4 mg by mouth daily with breakfast. Active metFORMIN (GLUCOPHAGE XR) 500 mg Extended Release 24 hour tablet 1,000 mg. Active OLANZapine (ZyPREXA) 5 mg tablet TAKE 1 TABLET BY MOUTH AT BEDTIME FOR 30 DAYS 1 Active FLUoxetine (PROzac) 10 mg capsule fluoxetine 10 mg capsule Active levothyroxine 25 mcg tablet 50 mcg. Active pioglitazone (ACTOS) 15 mg tablet Take 15 mg by mouth daily with breakfast. 4 Active pravastatin (PRAVACHOL) 40 mg tablet Take 40 mg by mouth daily. Active Active Problems Problem Noted Date Diagnosed Date DM (diabetes mellitus), type 2 10/25/2019 Lung cancer 09/28/2019 Encounters Date Type Department Care Team Description 04/18/2025 External Device Data STL ABSTRACTION Provider, Abstract 04/11/2025 External Device Data STL ABSTRACTION Provider, Abstract 04/05/2025 External Device Data ST[facility] ABSTRACTION Provider, Abstract 04/04/2025 External Device Data STL ABSTRACTION Provider, Abstract 02/14/2025 External Device Data STL ABSTRACTION Provider, Abstract 02/01/2025 External Device Data STL ABSTRACTION Provider, Abstract from Last 3 Months Immunizations Immunization Administration Dates Next Due Influenza Seasonal Unspecified Formulation IM Family History Medical History Relation Name Comments Cancer Brother 1 Diabetes Brother 1 Cancer Brother 2 Diabetes Brother 2 Diabetes Brother 3 Diabetes Brother 4 Relation Name Status Comments Brother 1 Alive Brother 2 Alive Brother 3 Alive Brother 4 Alive Father Mother Social History Tobacco Use Types Packs/Day Years Used Date Smoking Tobacco: Former Cigarettes 1 30 1 - 09/06/2019 Smokeless Tobacco: Never Tobacco Cessation:Counseling Given: Not Answered Alcohol Use Standard Drinks/Week Comments Never 0 (1 standard drink = 0.6 oz pur e alcohol) Comments No Sex and Gender Information Value Date Recorded Sex Assigned at Not on file Legal Sex Female 11:11 AM CDT Gender Identity Not on file Sexual Orientation Not on file Last Filed Vital Signs Vital Sign Reading Time Taken Comments Blood Pressure 138/73 10/19/2024 10:42 AM SKILLED LABORER Pulse 62 10/19/2024 10:42 AM SKILLED LABORER Temperature 36.7 C (98 F) 10/19/2024 10:42 AM SKILLED LABORER Respiratory Rate 18 10/19/2024 10:42 AM SKILLED LABORER Oxygen Saturation 95% 10/19/2024 10:42 AM SKILLED LABORER Inhaled Oxygen Concentration - - Weight 96.6 kg (213 lb) 10/19/2024 10:42 AM SKILLED LABORER Height 157.5 cm (5' 2) 05/26/2022 9:59 AM CDT Body Mass Index 38.96 05/26/2022 9:59 AM CDT Plan of Treatment Upcoming Encounters Date Type Department Care Team (Late st Contact Info) Description 10/23/2025 10:00 AM SKILLED LABORER Office Visit [facility] Oncology and Hematology - [place] [address] [facility] [address] [facility] [address] [place] [address] Rasta Fitzgerald MD [address] [facility] [address] [place] [id number] Health Maintenance Due Date Last Done Comments DIABETES ANNUAL FOOT EXAM 1977 DIABETES ANNUAL RETINAL EXAM 1977 DIABETES MICROALBUMIN ANNUAL SCREEN 1977 LDL CHOLESTEROL ANNUAL 1977 BREAST CANCER SCREENING 1999 COLORECTAL SCREENING 2004 Colorectal Cancer Screening 2004 FIT-DNA Q 3 years 2004 FIT/FOBT Q 1 year 2004 Flex Sig/CT Colonography Q 5 years 2004 COVID-19 Vaccine (2023-2 5 season) 2024 12/23/2021, 01/20/2021, 01/19/2021 OSTEOPOROSIS SCREENING 2024 DIABETES HBA1C Q 6 MONTHS 01/12/2025 07/12/2024, DTAP/TDAP/TD VACCINES (2 - T d or Tdap) 08/28/2027 08/28/2017 RSV VACCINE (60+ or ) (1 - 1-dose 75+ series) 2034 PNEUMOCOCCAL VACCINE 50+ YEARS Completed 02/18/2022 , 12/29/2017 ZOSTER VACCINE Completed 05/26/2022, 02/18/2022 INFLUENZA VACCINE Completed 09/19/2024, , 11/19/2022, Additional history exists Medical Devices Implanted Type Area Timers Inspector Device Identifier Shelf Expiration Date Model / Serial / Lot Sealant Progel Pleural 4ml [id number] - [id number] Implanted:Qty : 1 on 10/10/2019 by Александр Garcia MD at [facility] Tissue Right: Lung CR [employer]ino[employer] [id number] 01/24/2021 [id number] / / [id number] Procedures Procedure Name Priority Date/Time Associated Diagnosis Comments HEMOGLOBIN A1C Routine 09/28/2019 2:11 PM SKILLED LABORER from Last 3 Months or Most Recently Relevant to Health Maintenance Results * (ABNORMAL) HEMOGLOBIN A1C (09/28/2019 2:11 PM SKILLED LABORER) HEMOGLOBIN A1C 6.3(H) <5.7 % 09/28/2019 5:01 PM SKILLED LABORER [facility] EST. AVG GLUCOSE, A1C 134 mg/dL 09/28/2019 5:01 PM [facility] Blood Venipuncture / Unknown 09/28/2019 2:11 PM SKILLED LABORER 09/28/2019 3:39 PM SKILLED LABORER Narrative [facility] - 09/28/2019 5:01 PM SKILLED LABORER HGB A1C INTERPRETATION NORMAL: <5.7% PRE-DIABETES: 5.7 - 6.4% DIABETES: 6.5% OR GREATER us Kell Delgado [facility] CHEMISTRY ORDERABLES Nivia l Result [facility] [employer] [facility] CLIA# [id number] [address] [place] [address] from Last 3 Months or Most Recently Relevant to Health Maintenance Insurance MEDICARE PART A AND B [facility] Advance Directives For more information, please contact: [phone] * Full Code (Latest Code Status on File) Date Activated Date Inactivated Comments 10/10/2019 6:31 PM 10/12/2019 6:11 PM * Full Code Date Activated Date Inactivated Comments 10/10/2019 10:16 AM 10/10/2019 6:31 PM * Full Code Date Activated Date Inactivated Comments 10/10/2019 10:04 AM 10/10/2019 10:16 AM Care Teams Wheel Presser Relationship Specialty Start Date End Date Marielena Choi MD [address] [place] [address] PCP - General Internal Medicine 09/28/19
--- OUTSIDE RECORDS SUMMARY | 2025-04-24 08:13 | XMS_ITS | Referral Summary ---
Author Organization [facility] Address [address] [place] [address] Care Team Providers Care Credit Collection Associate Name Role Phone Bruce Diaz MD Unavailable [phone] Marielena Choi MD Primary Care Provider Encounters Date Type Department Care Team Description 02/21/2025 Telephone [facility] [facility] of [address] [address] Zayda Hawthorne MD Lab Results 01/27/2025 Orders Only [facility] [facility] of [address] [address] Zayda Hawthorne MD 01/27/2025 Telephone [facility] of [address] [address] Zayda Hawthorne MD [place] [facility] Request from Last 3 Months Allergies Active Allergy Reactions Criticality Noted Date Comments Empagliflozin Nausea only Low 05/06/2024 Sulfa (Sulfonamide Antibiotics) Unknown 09/17 Medications OLANZapine (ZyPREXA) 2.5 mg tablet Take 1 tablet (2.5 mg total) by mouth nightly Active cranberry 400 mg capsule cranberry Active ascorbic acid (vitamin C) 100 mg tablet Vitamin C Active FLUoxetine 10 mg tablet/capsule Take 1 tablet/capsule (10 mg total) by mouth daily Active rosuvastatin (CRESTOR) 20 mg tablet Take 1 tablet (20 mg total) by mouth daily Active pioglitazone (ACTOS) 15 mg tabletIndicatio ns:type 2 diabetes mellitus Take 1 tablet (15 mg total) by mouth daily 90 tablet 1 4 Active glimepiride (AMARYL) 4 mg tabletIndicatio ns:type 2 diabetes mellitus Take 1 tablet (4 mg total) by mouth daily before breakfast 90 tablet 2 4 Active metFORMIN (GLUCOPHAGE) 500 mg tablet Take 2 tablets (1,000 mg total) by mouth daily with breakfast 180 tablet 2 4 Active levothyroxine (SYNTHROID) 75 mcg tablet Take 1 tablet (75 mcg total) by mouth brush cutter before breakfast Active tirzepatide (Mounjaro) 2.5 mg/0.5 mL pen injector injection Inject 0.5 mL (2.5 mg total) under the skin once a week for 28 days 2 mL 5 Active tirzepatide (Mounjaro) 5 mg/0.5 mL pen injector injection Inject 0.5 mL (5 mg total) under the skin once a week 2 mL 6 5 Active Active Problems Problem Noted Date Diagnosed Date Hyperlipidemia associated with type 2 diabetes m ellitus 01/18/2025 Type 2 diabetes mellitus wit h hyperglycemia, without long-term current use of insulin 07/12/2024 Assessment & Plan (07/12/2024 12:02 PM CDT): Hba1c was Lab Results Component Value Date HGBA1C 7.0 07/12/2024 today, indicating adequate DM control Goal Hba1c under 7 and blood glucose level in the 120-160 range was explained Low carb diet and daily aerobic and /or resistant exercise were advised Prevention and treatment of hyypoglcyemia were discussed with the patient Have advised the patient to lower the glimepiride to 4 mg once a day due to the high risk of hypoglycemia Blood glucose monitoring : Advised to check at least once a day Adjustment to medications: Lowering glimepiride to 4 mg daily Continue metformin 1000 mg daily. Continue pioglitazone 15 mg a day Once the patient is on Medicare and is more affordable, we will probably try her on a GLP 1 and or SGL T2 Hypothyroidism 07/12/2024 Assessment & Plan (07/12/2024 12:04 PM CDT): Chronic, stable as per last TSH in April 2024 Continue levothyroxine 50 mcg daily Erythrocytosis 03/29/2019 Polycythemia 10/05/2018 Social History Tobacco Use Types Packs/Day Years Used Date Smoking Tobacco: Former Cigarettes 1 55.4 S tarted: 1970 Smokeless Tobacco: Never Tobacco Cessation:Counseling Given: Not Answered Alcohol Use Standard Drinks/Week Comments No 0 (1 standard drink = 0.6 oz pur e alcohol) AUDIT-C Answer Date Recorded Q1: How often do you have a drink containing alcohol? Never 07/12/2024 Q2: How many drinks containi ng alcohol do you have on a typical day when you are drinking? Patient does not drink Q3: How often do you have si x or more drinks on one occasion? Never 07/12/2024 PHQ-2 Answer Date Recorded PHQ-2 Total Score (If total score is 3 or more points, staff should administer the PHQ-9) 0 01/18/2025 Comments Unknown Sex and Gender Information Value Date Recorded Sex Assigned at Not on file Legal Sex Female 7:24 PM RAG WILLOW OPERATOR Gender Identity Not on file Sexual Orientation Straight 07/12/2024 9: 57 AM CDT Last Filed Vital Signs Vital Sign Reading Time Taken Comments Blood Pressure 118/72 01/18/2025 10:59 AM RAG WILLOW OPERATOR Pulse 82 01/18/2025 10:59 AM RAG WILLOW OPERATOR Temperature 36.7 C (98.1 F) 04/27/2019 2:57 PM CDT Respiratory Rate 18 01/18/2025 10:59 AM RAG WILLOW OPERATOR Oxygen Saturation 97% 04/27/2019 2:57 PM CDT Inhaled Oxygen Concentration - - Weight 98 kg (216 lb) 01/18/2025 10:59 AM RAG WILLOW OPERATOR Height 157.5 cm (5' 2) 01/18/2025 10:59 AM RAG WILLOW OPERATOR Body Mass Index 39.51 01/18/2025 10:59 AM RAG WILLOW OPERATOR Plan of Treatment Not on file Procedures Procedure Name Priority Date/Time Associated Diagnosis Comments TSH Routine 02/20/2025 10:46 AM CDT POCT HEMOGLOBIN A1C Routine 01/18/2025 1 1:01 AM RAG WILLOW OPERATOR Type 2 diabetes mellitus with hyperglycemia, without long-term current use of insulin (HCC) ALBUMIN CREATININE RATIO, URINE Routine 01/18/2025 12:00 AM RAG WILLOW OPERATOR Type 2 diabetes mellitus with hyperglycemia, without long-term current use of insulin (HCC) BASIC METABOLIC PANEL Routine 01/16/2025 10:20 AM RAG WILLOW OPERATOR LIPID PANEL Routine 01/16/2025 10:20 AM RAG WILLOW OPERATOR from Last 3 Months or Most Recently Relevant to Health Maintenance Results * (ABNORMAL) TSH (02/20/2025 10:46 AM CDT) Scribed TSH 0.28(A) 0.45 - 4.50 mcU/mL [facility] Blood 02/20/2025 10:4 6 AM CDT Marielena Choi MD LAB BLOOD ORDERABLES Fi nal Result [facility] * (ABNORMAL) POCT hemoglobin A1c (01/18/2025 11:01 AM RAG WILLOW OPERATOR) Hemoglobin A1C, POC 7.5 4.0 - 5.6 % Comment:None Capillary blood 01/18/2025 1 1:01 AM RAG WILLOW OPERATOR us Zayda Hawthorne MD POINT OF CARE TEST ORDERABLES Fi nal Result * Albumin Creatinine Ratio, Urine (01/18/2025 12:00 AM RAG WILLOW OPERATOR) Albumin Ur 15.5 mg/L Comment: Interpretive Data No reference range established. Current interpretive data was last revised 2019. Creatinine Ur 69.2 mg/dL [facility] Comment: Interpretive Data No reference range established. Current interpretive data was last revised 2019. Albumin Creatinine Ratio, Ur 22 1 - 29 mg/g [facility] Urine 01/18/2025 01/18/2025 1:0 4 PM RAG WILLOW OPERATOR us Zayda Hawthorne MD LAB URINE ORDERABLES Final Resul t SAMANTHA [id number] [address] [place] [address] * (ABNORMAL) Lipid panel (01/16/2025 10:20 AM RAG WILLOW OPERATOR) SCRIBED Cholesterol, Total 144 100 - 199 [facility] SCRIBED HDL 52(A) > - 39 [facility] SCRIBED LDL 72 0 - 99 [facility] SCRIBED Triglycerides 109 0 - 149 [facility] Blood 01/16/2025 10:2 0 AM RAG WILLOW OPERATOR Marielena hCoi MD LAB BLOOD ORDERABLES Fi nal Result Performing Organization Address City/[facility]/ZIP Co de Phone Number [facility] * (ABNORMAL) Basic metabolic panel (01/16/2025 10:20 AM RAG WILLOW OPERATOR) SCRIBED Sodium 144 134 - 144 mmol/L [facility] SCRIBED Potassium 4.6 3.5 - 5.2 mmol/L [facility] SCRIBED Chloride 106 96 - 106 mmol/L [facility] SCRIBED Carbon Dioxide 23 20 - 29 mmol/L [facility] SCRIBED Urea Nitrogen (BUN) 13 8 - 27 mg/dl [facility] SCRIBED Creatinine 0.51(A) 0.57 - 1.00 mg/dl [facility] SCRIBED Glucose 156(A) 70 - 99 mg/dl [facility] SCRIBED eGFR in NonAfrican Uruguayan 104(A) 0 - 59 [facility] Blood 01/16/2025 10:2 0 AM RAG WILLOW OPERATOR Marielena Choi MD LAB BLOOD ORDERABLES Ed ited Result - Final [facility] from Last 3 Months or Most Recently Relevant to Health Maintenance Insurance [employer] PREFERRED MEDICARE [facility] MEDICARE SUPPLEMENT Member Subscriber Plan / Payer (Ef fective 2024-Present) Name:Dulce Melissa Relation to Subscriber:Self Name:Dulce Melissa Payer ID:[id number] Group ID:[id number] Type:COMMERCIAL Address: [address] MEDICARE HMO Care Teams Credit Collection Associate Relationship Specialty Start Date End Date Marielena Choi MD [facility] [address] PCP - General Internal Medicine 10/13/18 Bruce Diaz MD Medical Oncologist/Catheter Finisher And Inspector Hematology and Oncology 10/12/18
--- OUTSIDE RECORDS SUMMARY | 2025-04-24 08:13 | XMS_ITS | Clinical Summary ---
Author Organization [facility] Address [address] [place] [address] Care Team Providers Care Cardiology Teacher Name Role Phone Bruce Diaz MD Unavailable [phone] Marielena Choi MD Primary Care Provider Allergies Active Allergy Reactions Criticality Noted Date [...] 1 tablet (75 mcg total) by mouth early intervention school psychologist before breakfast Active tirzepatide (Mounjaro) 2.5 mg/0.5 [...] 50 mcg daily Erythrocytosis 03/29/2019 Polycythemia 10/05/2018 Encounters Date Type Department Care Team Description 02/21/2025 Telephone [facility] of [address], [place] [address] Zayda Hawthorne MD Lab Results 01/27/2025 Orders Only [facility] of [address], [place] [address] Zayda Hawthorne MD 01/27/2025 Telephone [facility] [address], [place] [address] Zayda Hawthorne MD [employer] [facility] Request from Last 3 Months Surgical History Surgery Date Site/Laterality Comments CHOLECYSTECTOMY BACK SURGERY Medical History Medical History Date Comments Diabetes mellitus (HCC) Hypercholesteremia Schizophrenia in remission (HCC) With Lung cancer (HCC) History of lobectomy of lung 2019 Family History Medical History Relation Name Comments Diabetes Father Diabetes type II Mother Diabetes Sister Relation Name Status Comments Father Mother Sister Social History Tobacco Use Types Packs/Day Years [...] on file Legal Sex Female 7:24 PM PURSE MAKER Gender Identity Not on file Sexual Orientation Straight 07/12/2024 9: 57 AM CDT Obstetrics History Last Filed Vital Signs Vital Sign Reading Time Taken Comments Blood Pressure 118/72 01/18/2025 10:59 AM PURSE MAKER Pulse 82 01/18/2025 10:59 AM PURSE MAKER Temperature 36.7 C (98.1 F) 04/27/2019 2:57 PM CDT Respiratory Rate 18 01/18/2025 10:59 AM PURSE MAKER Oxygen Saturation 97% 04/27/2019 2:57 PM CDT Inhaled Oxygen Concentration - - Weight 98 kg (216 lb) 01/18/2025 10:59 AM PURSE MAKER Height 157.5 cm (5' 2) 01/18/2025 10:59 AM PURSE MAKER Body Mass Index 39.51 01/18/2025 10:59 AM PURSE MAKER Plan of Treatment Health Maintenance Due Date Last Done Comments Breast Cancer Screening-Mammogram 1959 Cervical Cancer Screening 1959 Colon Cancer Screening-Colonoscopy 1959 Hepatitis C Screening 1959 Osteoporosis Screening-Bone Density Scan 1959 Dilated Eye Exam 1959 Foot Exam 1959 Hepatitis B Screening 1977 Covid-19 Vaccine (2023-2 5 season) 2024 12/23/2021, 01/20/2021, 01/19/2021 Well Visit 65+ 2024 Fall Risk Assessment 07/12/2025 07/12/2024 Influenza Vaccine (Season Ended) 2025 10/26/2023, 11/19/2022, 09/02/2021, Additional history exists Hemoglobin A1C 07/21/2025 01/18/2025, 06/17, 05/02/2024, Additional history exists Lipid Panel 01/16/2026 01/16/2025, 05/02/2024 eGFR 01/16/2026 01/16/2025, 05/02/2024 Albumin Creatinine Ratio, Urine 01/18/2026 Depression Screening 01/18/2026 01/18/2025, 07/12/20 DTaP/Tdap/Td Vaccine (2 - Td or Tdap) 08/28/2027 08/28/2017 Pneumococcal vaccine 65+ Completed 02/18/2022, 12/17 Zoster Vaccine Completed 05/26/2022, 02/18/2022 Procedures Procedure Name Priority Date/Time Associated Diagnosis Comments TSH Routine 02/20/2025 10:46 AM CDT POCT HEMOGLOBIN A1C Routine 01/18/2025 1 1:01 AM PURSE MAKER Type 2 diabetes mellitus with hyperglycemia, without long-term current use of insulin (HCC) ALBUMIN CREATININE RATIO, URINE Routine 01/18/2025 12:00 AM PURSE MAKER Type 2 diabetes mellitus with hyperglycemia, without long-term current use of insulin (HCC) BASIC METABOLIC PANEL Routine 01/16/2025 10:20 AM PURSE MAKER LIPID PANEL Routine 01/16/2025 10:20 AM PURSE MAKER from Last 3 Months or Most Recently Relevant to Health Maintenance Results * (ABNORMAL) TSH (02/20/2025 10:46 AM CDT) Pathologist [facility] Scribed TSH 0.28(A) 0.45 - 4.50 mcU/mL [facility] Blood 02/20/2025 10:4 6 AM CDT Marielena Choi MD LAB BLOOD ORDERABLES Fi nal Result [facility] * (ABNORMAL) POCT hemoglobin A1c (01/18/2025 11:01 AM PURSE MAKER) [facility] Hemoglobin A1C, POC 7.5 4.0 - 5.6 % Comment:None Capillary blood 01/18/2025 1 1:01 AM PURSE MAKER us Zayda Hawthorne MD POINT OF CARE TEST ORDERABLES Fi nal Result * Albumin Creatinine Ratio, Urine (01/18/2025 12:00 AM PURSE MAKER) [facility] Albumin Ur 15.5 mg/L Comment: Interpretive Data No reference range established. Current interpretive data was last revised 2019. Creatinine Ur 69.2 mg/dL [facility] MENDEZ Comment: Interpretive Data No reference range established. Current interpretive data was last revised 2019. Albumin Creatinine Ratio, Ur 22 1 - 29 mg/g [facility] MENDEZ Urine 01/18/2025 01/18/2025 1:0 4 PM PURSE MAKER us Zayda Hawthorne MD LAB URINE ORDERABLES Final Resul t SAMANTHA MENDEZ [id number] [address] Department [place] [address] * (ABNORMAL) Lipid panel (01/16/2025 10:20 AM PURSE MAKER) SCRIBED Cholesterol, Total 144 100 - 199 [facility] SCRIBED HDL 52(A) > - 39 [facility] SCRIBED LDL 72 0 - 99 [facility] SCRIBED Triglycerides 109 0 - 149 [facility] Blood 01/16/2025 10:2 0 AM PURSE MAKER Marielena Choi MD LAB BLOOD ORDERABLES Fi nal Result [facility] * (ABNORMAL) Basic metabolic panel (01/16/2025 10:20 AM PURSE MAKER) SCRIBED Sodium 144 134 - 144 mmol/L [facility] SCRIBED Potassium 4.6 3.5 - 5.2 mmol/L [facility] SCRIBED Chloride 106 96 - 106 mmol/L [facility] SCRIBED Carbon Dioxide 23 20 - 29 mmol/L [facility] SCRIBED Urea Nitrogen (BUN) 13 8 - 27 mg/dl [facility] SCRIBED Creatinine 0.51(A) 0.57 - 1.00 mg/dl [facility] SCRIBED Glucose 156(A) 70 - 99 mg/dl [facility] SCRIBED eGFR in NonAfrican Cypriot 104(A) 0 - 59 [facility] Blood 01/16/2025 10:2 0 AM PURSE MAKER Marielena Choi MD LAB BLOOD ORDERABLES Ed ited Result - Final [facility] from Last 3 Months or Most Recently Relevant to Health Maintenance Insurance [employer] PREFERRED MEDICARE [facility] MEDICARE SUPPLEMENT Member Subscriber Plan / Payer (Ef fective 2024-Present) Name:Dulce Melissa Relation to Subscriber:Self Name:Dulce Melissa Payer ID:[id number] Group ID:[id number] Type:COMMERCIAL Address: [address] MEDICARE HMO Care Teams Cardiology Teacher Relationship Specialty Start Date End Date Marielena Choi MD [address] [place] [id number] PCP - General Internal Medicine 10/13/18 Bruce Diaz MD Medical Oncologist/Immersion Metal Cleaner Hematology and Oncology 10/12/18
--- OUTSIDE RECORDS SUMMARY | 2025-04-24 08:13 | XMS_ITS | Data Portability ---
Author Organization [facility] [employer], Main Office Address [address] [place] [address] Care Team Providers Care Department Administrator Name Role Phone NUZHAT DANIEL Primary Care Provider [phone] NUZHAT DANIEL Referring Provider Assessment No assessment recorded. Plan of Treatment Reminders Order Date Submit Date Provider Last Modified By Organization Details Last Modified Time Details Appointments None recorded. Lab HbA1c (hemoglobi n A1c), blood 2022 023 [facility], [address] [place], [address], 3 10:20:30 CMP, serum or plasma 2022 023 [facility], [address] [place], [address], 3 16:54:34 microalbum in/creatin ine, mass ratio, urine 2022 023 [facility], [address] [place], [address], 3 10:20:30 lipid panel, serum 2022 023 [facility], [address] [place], [address], 3 18:44:42 T3, free, serum or plasma 2022 023 [facility], [address] [place], [address], 3 10:35:17 T4, free, serum 2022 023 [facility], [address] [place], [address], 3 10:35:17 TSH, serum or plasma 2022 023 [facility], [address] [place], [address], 3 10:35:17 Referral None recorded. Procedures None recorded. Surgeries None recorded. Imaging None recorded. Medication Orders glimepirid e 2 mg tablet 2022 023 [facility], [address] [place] [address], [address], 3 11:51:52 metformin ER 500 mg tablet,ext ended release 24 hr 2022 023 [facility], [address] [place] [address], [address], 3 11:51:57 Farxiga 10 mg tablet 2022 023 [facility], [address] [place] [address], [address], 3 11:51:51 Unithroid 75 mcg tablet 2022 023 [facility], [address] [place] [address], [address], 3 11:50:10 Bydureon BCise 2 mg/0.85 mL subcutaneo us auto-injec tor [email or web address] [facility], [address] [place] [address], [address], 3 11:20:47 Patient TargetsNo targets recorded. Patient InstructionsNo instructions recorded. Reason for Referral None Reported. Results Created Date Observation Date Name Description Value Unit Range Abnormal Flag Note LastModifiedBy Organization Detail LastModifiedTime Result Notes None recorded. Problems Name Problem SNOMED Code Status Onset Date Resolution Date Notes Provider Name and Address Organization Details Recorded Time Loss of hair 057223333 Active 2021 Not Available [facility] 3 02:30:45 Dyslipidemia 776043509 Active 2021 Not Available [facility] 3 02:30:45 Hypothyroidis m 40639171 Active 2021 Not Available [facility] 3 02:30:45 Uncontrolled type 2 diabetes mellitus 363095101 Active 2021 Not Available [facility] 3 02:30:45 Paronychia of toe of right foot due to ingrown toenail 871917869 Active 2020 Not Available [facility] 3 02:30:45 Dystrophia unguium 24251180 Active 2021 Not Available [facility] 3 02:30:45 Well controlled type 2 diabetes mellitus 290048429 Active 2022 Jennifer Donohue MD [address] [place] [address], [phone] , [facility] [employer] 3 10:08:03 Type 2 diabetes mellitus without complication 894905033 Active 2022 Vivienne barber, [employer] 3 11:00:46 Problem Notes None recorded. Procedures Surgical History Date Name Laterality Status Provider Name and Address Organization Details Recorded Time 12/20/19 Biopsy completed Not Available [facility] 3 02:27:50 Gallbladder Surgery completed Not Available [facility] 01/14/2023 02:27:50 Back Surgeries completed Not Available [facility] 01/14/2023 02:27:50 Tonsillectomy completed Not Available [facility] 01/14/2023 02:27:50 Lung [facility] 01/14[facility]23 02:27:50 Imaging Results None recorded. Procedure Notes None recorded. Medical Equipment None Reported. Allergies Allergen ID Allergen Name Allergen Category Reaction Reaction Severity Criticality Documentation Date Start Date Code Code System Note Provider Name and Address Organization Details Recorded Time 3233 Substance with sulfonami de structure and antibacte rial mechanism of action (substanc e) medicatio n Not available Not available Not available 01/14/2023 03914 8003 SNOMED Not Available [facility] 3 02:34:31 3234 nickel environme nt Not available Not available Not available 01/14/2023 49783 29 RxNorm Not Available [facility] 3 02:34:31 Medications Name Sig Start Date Stop Date Status Note LastModified by Organization Details LastModified Time metformin 500 mg tablet TAKE 1 TABLET BY MOUTH TWICE DAILY DIRECTED 01/24 completed Not Available Not Available Not Available pravastatin 40 mg tablet TAKE 1 TABLET BY MOUTH ONCE DAILY AT BEDTIME 01/19 completed Not Available Not Available Not Available olanzapine 5 mg tablet TAKE 1 TABLET BY MOUTH AT BEDTIME active Not Available Not Available No t Available olanzapine 10 mg tablet 04/28 completed Not Available Not Available Not Available acetaminoph en 300 mg-codeine 30 mg tablet TAKE 1 TABLET BY MOUTH 4 TIMES DAILY NEEDED FOR PAIN 07/07 completed Not Available Not Available Not Available olanzapine 2.5 mg tablet TAKE 1 TABLET BY MOUTH AT BEDTIME FOR 30 DAYS 06/27 completed Not Available Not Available Not Available glimepiride 2 mg tablet Take 2 tablets by mouth twice daily active Not Available Not Available No t Available glimepiride 1 mg tablet TAKE 1 TABLET BY MOUTH ONCE DAILY WITH MEALS 01/24 completed Not Available Not Available Not Available Euthyrox 25 mcg tablet TAKE 1 TABLET BY MOUTH ONCE DAILY IN THE MORNING 07/07 completed Not Available Not Available Not Available levothyroxi ne 50 mcg tablet Take 1 tablet by mouth once daily for 90 days active Not Available Not Available No t Available cephalexin 500 mg capsule Take 1 capsule every 6 hours by oral route as directed for 7 days. 01/19 completed Not Available Not Available Not Available fluoxetine 10 mg capsule TAKE 1 CAPSULE BY MOUTH ONCE DAILY active Not Available Not Available No t Available Unithroid 75 mcg tablet Take 1 tablet(s) every day by oral route in the morning for 90 days. active Not Available Not Available No t Available metformin ER 500 mg tablet,exte nded release 24 hr active Not Available Not Available Not Available olanzapine 20 mg tablet TK 1/2 TO 1 T PO QHS 04/28 completed Not Available Not Available Not Available amoxicillin 875 mg-potassiu m clavulanate 125 mg tablet TAKE 1 TABLET BY MOUTH EVERY 12 HOURS DIRECTED FOR 7 DAYS 01/19 completed Not Available Not Available Not Available rosuvastati n 20 mg tablet TAKE 1 TABLET BY MOUTH ONCE DAILY WITH SUPPER FOR 90 DAYS active Not Available Not Available No t Available Vitamin C 2020 active Not Available Not Available Not Avai lable cranberry 2020 active Not Available Not Available Not Avai lable metformin 01/19 completed Not Available Not Available Not Available multivitami n 2020 active Not Available Not Available Not Avai lable Farxiga 10 mg tablet Take 1 tablet every day by oral route in the morning for 90 days. 2022 active Not Available Not Available Not Avai lable Jardiance 25 mg tablet TAKE 1 TABLET BY MOUTH ONCE DAILY DIRECTED FOR 30 DAYS 01/24 completed Not Available Not Available Not Available Trulicity 1.5 mg/0.5 mL subcutaneou s pen injector INJECT 1.5 MG EVERY WEEK BY SUBCUTANE OUS ROUTE IN THE MORNING 01/19 completed Not Available Not Available Not Available Bydureon BCise 2 mg/0.85 mL subcutaneou s auto-inject or Inject 2 mg every week by subcutane ous route at dinner for 90 days. 07/07 completed Not Available Not Available Not Available Rybelsus 7 mg tablet TAKE 1 TABLET BY MOUTH ONCE DAILY DIRECTED FOR 30 DAYS 03/21 completed Not Available Not Available Not Available Rybelsus 3 mg tablet TAKE 1 TABLET BY MOUTH ONCE DAILY AROUND THE CLOCK FOR 30 DAYS 01/24 completed Not Available Not Available Not Available Vitals Date Recorded Body mass index (BMI) Body height Heart rate Body weight Systolic blood pressure Diastolic blood pressure Provider Name and Address Organization Details Last Updated DateTime 2 36.2 kg/m2 157.48 cm 74 /min 78357.2 9 g 147 mm[Hg] 105 mm[Hg] Not Available [employer] 3 02:28:53 Date Recorded Body height Body mass index (BMI) Body weight Heart rate Body temperature Systolic blood pressure Diastolic blood pressure Provider Name and Address Organization Details Last Updated DateTime 3 157.48 cm 38.1 kg/m2 87761.9 3 g 96 /min 97.8 [degF] 142 mm[Hg] 80 mm[Hg] TATIANNA Plascencia [facility] [employer] [facility] 3 10:00:48 Date Recorded Body mass index (BMI) Body height Oxygen saturation Oxygen saturation in Arterial blood by Pulse oximetry Heart rate Body temperature Body weight Systolic blood pressure Diastolic blood pressure Provider Name and Address Organization Details Last Updated DateTime 2 37.9 kg/m2 157.48 cm 97 % 97 % 81 /min 97.8 [degF] 31697.6 2 g 155 mm[Hg] 95 mm[Hg] Not Available [facility] 3 02:28:53 Date Recorded Body height Body mass index (BMI) Body weight Respiratory rate Body temperature Heart rate Systolic blood pressure Diastolic blood pressure Provider Name and Address Organization Details Last Updated DateTime 3 157.48 cm 37.7 kg/m2 87204.7 5 g 16 /min 97.9 [degF] 69 /min 140 mm[Hg] 80 mm[Hg] Mita Barraza RN [facility] [employer] [facility] 3 11:23:36 Date Recorded Body mass index (BMI) Body height Heart rate Body temperature Body weight Systolic blood pressure Diastolic blood pressure Provider Name and Address Organization Details Last Updated DateTime 2 38.4 kg/m2 157.48 cm 88 /min 97.8 [degF] 26766.1 2 g 122 mm[Hg] 82 mm[Hg] Not Available [facility] 3 02:28:53 Social History Question Answer Notes LastModified by Organizat ion Details LastModified Time Tobacco Smoking Status Former Smoker Not Available [facility] 01/14/2023 02:25:16 What Is Your Level Of Caffeine Consumption? Moderate [id number] Information not available 01/14/2023 How Much Tobacco Do You Chew? None [id number] Information not available 01/14/2023 In The 14 Days Before Symptom Onset, Have You Had Close Contact With A Laboratory-confirm ed COVID-19 While That Case Was Ill? No [id number] Information not available 01/14/2023 In The 14 Days Before Symptom Onset, Have You Had Close Contact With A Person Who Is Under Investigation For COVID-19 While That Person Was Ill? No [id number] Information not available 01/14/2023 Which Illicit Or Recreational Drugs Have You Used? None [id number] Information not available 01/14/2023 When Did You Quit Smoking? 1-5yearssince lastcigarette MIGRATION.[id number] 3123 Information not available 01/14/2023 What Was The Date Of Your Most Recent Tobacco Screening? 09/09/2021 [id number] Information not available 01/14/2023 Has Tobacco Cessation Counseling Been Provided? No [id number] Information not available 01/14/2023 Sex: Unknown Functional Status Question Answer Note LastModified by Organizat ion Details LastModified Time Do you use any illicit or recreational drugs? No [id number] Information not available 01/14/2023 Do you or have you ever used any other forms of tobacco or nicotine? No [id number].[id number] 0848 Information not available 01/14/2023 What is your level of alcohol consumption? None [id number] Information not available 01/14/2023 Do you or have you ever used smokeless tobacco? Never used smokeless tobacco MIGRATION.[id number] 8622 Information not available 01/14/2023 What is your occupation? [employer] MIGRATION.[id number] Information not available 01/14/2023 Do you or have you ever used e-cigarettes or vape? Never used electronic cigarettes [id number] Information not available 01/14/2023 Mental Status None recorded. Family History Relationship Description Onset Age of this Age Resolved Age Notes LastModified by Organization Details LastModified Time Brother Diabetes mellitus [id number] Not available 01/14/2023 02:27:53 Brother Family history of malignant neoplasm [id number] [id number] Not available 01/14/2023 02:27:53 Sister Diabetes mellitus [id number].010 [id number] Not available 01/14/2023 02:27:53 Sister Family history of malignant neoplasm [id number] [id number] Not available 01/14/2023 02:27:53 Father Diabetes mellitus [id number] [id number] Not available 01/14/2023 02:27:53 Father Heart disease [id number].059 [id number] Not available 01/14/2023 02:27:53 Father Family history of malignant neoplasm [id number] Not available 01/14/2023 02:27:53 Mother Diabetes mellitus [id number].993 [id number] Not available 01/14/2023 02:27:53 Mother Heart disease [id number].615 [id number] Not available 01/14/2023 02:27:53 Mother Family history of malignant neoplasm [id number].471 [id number] Not available 01/14/2023 02:27:53 Medical History Condition Response CANCER: SPECIFY Y SURGERY Y DIABETES, TYPE Y OTHER # 1 Y DEPRESSION (INCLUDING POST ) Y HIGH CHOLESTEROL / HYPERLIPIDEMIA Y Gynecological HistoryNo gynecological history recorded. Obstetrics History GPAL:G 0 P 0 0 0 0 Past Encounters Encounter ID Performer Location Encounter Start Date Encounter Closed Date Diagnosis/Indication Diagnosis SNOMED-CT Code Diagnosis ICD10 Code Diagnosis Note [id number] MD PENNY Ludwig IGRATION_ DEFAULT_1 _1 , 01/24/2021 00:00:00 01/24/2021 17:45:41 [id number] MD PENNY Ludwig IGRATION_ DEFAULT_1 _1 , 03/21/2021 00:00:00 03/21/2021 15:01:07 [id number] MD PENNY Ludwig IGRATION_ DEFAULT_1 _1 , 06/27/2021 00:00:00 06/27/2021 18:17:15 [id number] TEE Holt IGRATION_ DEFAULT_1 _1 , 09/09/2021 00:00:00 09/10/2021 10:04:43 [id number] Cristina IGRATION_ DEFAULT_1 _1 , 2021 00:00:00 09/24/2021 09:40:18 [id number] Rodriguez DPM [facility] [place] [address] [facility] [address] [place] [address] 12/17/2021 00:00:00 12/17/2021 15:33:32 [id number] Alexey Rodriguez DPM _[facility] IGRATION_ DEFAULT_1 _1 , 12/23/2021 00:00:00 12/23/2021 15:40:21 [id number] Jennifer Donohue MD _[facility]_M IGRATION_ DEFAULT_1 _1 , 02/27/2022 00:00:00 02/28/2022 09:15:16 [id number] [facility] [place] [address] [place] [address] 09/04/2022 00:00:00 09/04/2022 18:34:01 [id number] Jennifer Donohue MD [facility] [place] [address] [place] [address] 01/19/2023 09:41:03 01/19/2023 10:16:53 Well controlled type 2 diabetes mellitus 920493346 E11.9 A1C not sent- her glucose levels are over 200 mg/dL following meals. She really needs additional therapy- she has a very high deductible plan- will retry GLP1 agonist therapy as this will have most effect on postprandi al reduction and weight loss. Recommende d GLP1 agonist therapy as she is having trouble at times with cravings of sweets and portion control. 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 She has no hx of pancreatit is or medullary thyroid cancer and is willing to trial on a GLP1 agonist therapy. She was advised to contact clinic if she experience s any nausea, vomiting or significan t thyroid pain / swelling or abdominal pain so we can discuss and discontinu e and potentiall y look to other therapy. Will trial on bydureon 2 mg SQ weekly with largest meal of that day as tolerated. Continue metformin and glimepirid e scale. Hypothyroidism 39540813 E03.9 Continue LT4 50 mcg daily. She was reminded to take her LT4 on empty stomach with glass of water and wait one hour to eat or have her coffee in morning and up to 4 hours if ever taking any heartburn or reflux medication s to help optimize absorption . Discussed paleo like diet with restrictio n of GMOs to help with energy and to optimize absorption of vitamins and minerals and reduce inflammati on. Dyslipidemia 433190515 E 78.5 Continue rosuvastat in 20 mg daily for lipid control. Spent up to 25 minutes preparing to see the patient (eg, review of tests), obtaining and/or reviewing separately obtained history, performing a medically appropriat e examinatio n and evaluation , counseling and educating the patient, ordering medication s, tests, along with documentin g clinical informatio n in the electronic health record, independen laciy interpreti ng results and communicat ing results to the patient. RTC in 6 months. Patient was provided a handwritte n lab order which contains our fax number. If she chooses to go outside of the [facility] system to obtain labwork she was advised to provide our fax number and my informatio n to the lab she will be obtaining labwork from in order to have her labs properly forwarded over for me to review so there is no loss of follow up due to use of outside network. She was also advised to contact our clinic informing us that she has completed her labwork so we are aware we will need to reach out to the appropriat e laboratory to request her results be forwarded to us so I might have the ability to review and make further medical decision making in her case. She voiced understand ing. [id number] Jennifer Donohue MD [facility] [address] [place] [address] 07/07/2023 11:00:13 07/07/2023 12:42:04 Uncontrolled type 2 diabetes mellitus 072770527 E11.65 a1c of 7.6% - she is not able to take injectable s due to high deductible . Will add farxiga 5 mg daily x 2 weeks (samples provided) and if well tolerated uptitrate to 10 mg daily - patient advised to drink adequate water up to 64 ozs per day due to loss of calories and sugar through renal excretion- she was advised to contact clinic with any concern of dizziness, lightheade dness, flank pain or urinary pain or discomfort that might suggest the need for a urinalysis . She voiced understand ing. Provided patient assistance applicatio n to continue on the farxiga skilled nursing-she has 6 week samples to continue therapy. Continue on metformin for insulin sensitizat ion and glimepirid e scale. Hypothyroidism 11128247 E03.9 Continue on LT4 but uptitrate to 75 mcg daily as her TFTs are low normal range. She was reminded to take her LT4 on empty stomach with glass of water and wait one hour to eat or have her coffee in morning and up to 4 hours if ever taking any heartburn or reflux medication s to help optimize absorption . Discussed paleo like diet with restrictio n of GMOs to help with energy and to optimize absorption of vitamins and minerals and reduce inflammati on. Spent up to 25 minutes preparing to see the patient (eg, review of tests), obtaining and/or reviewing separately obtained history, performing a medically appropriat e examinatio n and evaluation , counseling and educating the patient, ordering medication s, tests, along with documentin g clinical informatio n in the electronic health record, independen tly interpreti ng results and communicat ing results to the patient. Patient can be followed by PCP - she/he is aware of my resignatio n and last day of August 28. If needed his/her PCP can refer patient to another endocrinol ogist in the area. All questions /concerns answered and refills necessary at visit today. Health Concerns Section Related Observation LastModified by Organization Detai ls LastModified Time None Recorded Concern Status LastModified by Organization Details LastModified Time None Recorded Advance Directives Directive None Recorded Payers Encounter Date Sequence Insurance Name Policy Number Policy Awan Covered Member ID Awan Member ID Guarantor Name 01/19/2023 1 [employer] [id number] Dulce Melissa [id number] Dulce Melissa 07/07/2023 1 [employer] [id number] Dulce Melissa [id number] Dulce Melissa Notes Date Note Type Note Provider Name and Address Organization Details Recorded Time 01/19/2023 text/html 62 yo female com es in for follow up in management of type 2 DM and hypothyroidism. last seen in Aug at that time we had patient continue glimepiride scale and had her increase metformin ER 500 mg to BID. we increased her LT4 to 50 mcg daily Her sugars do run up to 200 mg/dL after eating meals. She is struggling to lose weight. She is on rosuvastatin 20 mg daily and tolerating well. labs from 12/03/22:glucose 124 mg/dLnormal Crnormal LFT Jennifer Donohue MD [address], [place] [address], [place], [address], [employer] 01/19/2023 10:18:55 07/07/2023 text/html 62 yo female com es in for follow up in management of overall well controlled type 2 DM (A1C of 7.6%), hypothyroidism, dyslipidemia. last seen in January at that time we added bydureon 2 mg weekly and continued metformin and glimepiride. She is no taking bydureon- insurance would not cover this. we continued LT4 50 mcg daily. we continued statin therapy sugars are running over 130 mg/dL fastingpremeals over 140 mg/dL but rarely over 200 mg/dLdenies any hypoglycemia she has lost 2 pounds since last visit but gained over 15 pounds since last winter 2021 labs from 06/07:glucose 139 mg/dLCr normalLFT normalmicroalbumin 10 ug/mg128/78/55/58TSH of 3.660 uIU/mlFT4 of 0.92 ng/dlFT3 of 2.7 pg/mla1c of 7.6% Jennifer Donohue MD [address] [facility], [place] [address], [place], [address], [employer] 07/07/2023 12:55:34 OBGyn Episode No OBEpisode recorded.
== END 2025-04-24 08:05 | disposition home or self-care (01) ==
LOC: ANHIMG 08:06
PROVIDERS: PCP Internal Medicine Infectious Disease; Visit Provider Nurse Practitioner
DX: K76.0 Fatty (change of) liver, not elsewhere classified (principal); Z90.49 Acquired absence of other specified parts of digestive tract
CPT/HCPCS: 76705

== ENCOUNTER 2025-05-25 09:48 | Outpatient (CLI) | payer MEDICARE, SELFPAY ==
--- OUTSIDE RECORDS SUMMARY | 2025-05-25 09:55 | XMS_ITS | Clinical Summary ---
Author Organization [facility] Nhung dahl Yareli Address [address] [place] [address] Care Team Providers Care Wood Flour Miller Name Role Phone Marielena Choi MD Primary Care Provider [phone] Allergies Active Allergy Reactions Criticality Noted Date [...] Encounters Date Type Department Care Team Description 05/02/2025 External Device Data STL ABSTRACTION Provider, Abstract 04/18/2025 External Device Data STL ABSTRACTION Provider, [...] Comments Blood Pressure 138/73 10/19/2024 10:42 AM PERFUMER Pulse 62 10/19/2024 10:42 AM PERFUMER Temperature 36.7 C (98 F) 10/19/2024 10:42 AM PERFUMER Respiratory Rate 18 10/19/2024 10:42 AM PERFUMER Oxygen Saturation 95% 10/19/2024 10:42 AM PERFUMER Inhaled Oxygen Concentration - - Weight 96.6 kg (213 lb) 10/19/2024 10:42 AM PERFUMER Height 157.5 cm (5' 2) 05/26/2022 9:59 AM CDT Body Mass Index 38.96 05/26/2022 9:59 AM CDT Plan of Treatment Upcoming Encounters Date Type Department Care Team (Late st Contact Info) Description 10/23/2025 10:00 AM PERFUMER Office Visit [facility] Oncology and Hematology - Vin [address] [place] [address] Rasta Fitzgerald MD [address] [facility] [address] [place] [address] Health Maintenance Due Date Last Done Comments DIABETES ANNUAL FOOT EXAM 1977 DIABETES ANNUAL RETINAL EXAM 1977 DIABETES MICROALBUMIN ANNUAL SCREEN 1977 LDL CHOLESTEROL ANNUAL 1977 BREAST CANCER SCREENING 1999 COLORECTAL SCREENING 2004 Colorectal Cancer Screening 2004 FIT-DNA Q 3 years 2004 FIT/FOBT Q 1 year 2004 Flex Sig/CT Colonography Q 5 years 2004 COVID-19 Vaccine ( - 2023-2 5 season) 2024 12/23/2021, 01/20/2021, 01/19/2021 OSTEOPOROSIS SCREENING 2024 DIABETES HBA1C Q 6 MONTHS 01/12/2025 07/12/2024, INFLUENZA VACCINE (#1) 2025 , 10/26/2023, 11/19/2022, Additional history exists DTAP/TDAP/TD VACCINES (2 - T d or Tdap) 08/28/2027 08/28/2017 RSV VACCINE (60+ or ) (1 - 1-dose 75+ series) 2034 PNEUMOCOCCAL VACCINE 50+ YEARS Completed 02/18/2022 , 12/29/2017 ZOSTER VACCINE Completed 05/26/2022, 02/18/2022 Medical Devices Implanted Type Area Supervisor Denture Department Device Identifier Shelf Expiration Date Model / Serial / Lot Sealant Progel Pleural 4ml [id number] - [id number] Implanted:Qty : 1 on 10/10/2019 by Александр Garcia MD at [facility] Tissue Right: Lung CR BARD- [employer] [id number] 01/24/2021 [id number] / / [id number] Procedures Procedure Name Priority Date/Time Associated Diagnosis Comments HEMOGLOBIN A1C Routine 09/28/2019 2:11 PM PERFUMER from Last 3 Months or Most Recently Relevant to Health Maintenance Results * (ABNORMAL) HEMOGLOBIN A1C (09/28/2019 2:11 PM PERFUMER) HEMOGLOBIN A1C 6.3(H) <5.7 % 09/28/2019 5:01 PM PERFUMER [facility] KENZIE EST. AVG GLUCOSE, A1C 134 mg/dL 09/28/2019 5:01 PM [facility] Blood Venipuncture / Unknown 09/28/2019 2:11 PM PERFUMER 09/28/2019 3:39 PM PERFUMER Narrative [facility] - 09/28/2019 5:01 PM PERFUMER HGB A1C INTERPRETATION NORMAL: <5.7% PRE-DIABETES: 5.7 - 6.4% DIABETES: 6.5% OR GREATER us Kell Delgado [facility] CHEMISTRY ORDERABLES Nivia l Result [facility] CLIA# [id number] [address] [place] [address] from Last 3 Months or Most Recently Relevant to Health Maintenance Insurance MEDICARE PART A AND B [facility] SUPP Advance Directives For more information, please contact: [phone] * Full Code (Latest Code Status on File) Date Activated Date Inactivated Comments 10/10/2019 6:31 PM 10/12/2019 6:11 PM * Full Code Date Activated Date Inactivated Comments 10/10/2019 10:16 AM 10/10/2019 6:31 PM * Full Code Date Activated Date Inactivated Comments 10/10/2019 10:04 AM 10/10/2019 10:16 AM Care Teams Wood Flour Miller Relationship Specialty Start Date End Date Marielena Choi MD [address] [place] [address] PCP - General Internal Medicine 09/28/19
--- OUTSIDE RECORDS SUMMARY | 2025-05-25 09:55 | XMS_ITS | Referral Summary ---
Author Organization [facility] Address [address] [place] [address] Care Team Providers Care Chalk Machine Operator Name Role Phone Bruce Diaz MD Unavailable Marielena Choi MD Primary Care Provider Encounters Date Type Department Care Team Description 05/22/2025 1:30 PM CDT Office Visit [facility] [address] [address] Trish Rubi PA Type 2 diabetes mellitus with hyperglycemia, without long-term current use of insulin (HCC) (Primary Dx); Hyperlipidemia associated with type 2 diabetes mellitus (HCC); Severe obesity (HCC) 04/27/2025 Telephone [facility] [address] [address] Zayda Hawthorne MD Med Refill from Last 3 Months Allergies Active Allergy Reactions Criticality Noted Date Comments Empagliflozin Nausea only Low 05/06/2024 Nickel Rash Medium 10/10/2019 Sulfa (Sulfonamide Antibiotics) Unknown 09/17 Medications cranberry 400 mg capsule cranberry Active ascorbic acid (vitamin C) 100 mg tablet Vitamin C Active FLUoxetine 10 mg tablet/capsule Take 1 tablet/capsul e (10 mg total) by mouth daily Active rosuvastatin (CRESTOR) 20 mg tablet Take 1 tablet (20 mg total) by mouth daily Active glimepiride (AMARYL) 4 mg tabletIndicati ons:type 2 diabetes mellitus Take 1 tablet (4 mg total) by mouth daily before breakfast 90 tablet 2 07/12/20 24 Active metFORMIN (GLUCOPHAGE) 500 mg tablet Take 2 tablets (1,000 mg total) by mouth daily with breakfast 180 tablet 2 07/12/20 24 Active pioglitazone (ACTOS) 15 mg tablet Take 1 tablet by mouth once daily 180 tablet 05/15/20 25 Active levothyroxine (SYNTHROID) 50 mcg tablet Take 1 tablet (50 mcg total) by mouth daily Active OLANZapine (ZyPREXA) 5 mg tablet Take 1 tablet (5 mg total) by mouth nightly 05/08/20 25 Active tirzepatide (Mounjaro) 7.5 mg/0.5 mL pen injector injection Inject 0.5 mL (7.5 mg total) under the skin every 7 days 2 mL 5 05/22/20 25 Active OLANZapine (ZyPREXA) 2.5 mg tablet Take 1 tablet (2.5 mg total) by mouth nightly 025 Discontinued(Al ternate therapy) pioglitazone (ACTOS) 15 mg tabletIndicati ons:type 2 diabetes mellitus Take 1 tablet (15 mg total) by mouth daily 90 tablet 1 07/12/20 24 025 Discontinued levothyroxine (SYNTHROID) 75 mcg tablet Take 1 tablet (75 mcg total) by mouth early breastfeeding care specialist before breakfast 025 Discontinued(Al ternate therapy) tirzepatide (Mounjaro) 2.5 mg/0.5 mL pen injector injection Inject 0.5 mL (2.5 mg total) under the skin once a week for 28 days 2 mL 02/14/20 25 025 Discontinued(Al ternate therapy) tirzepatide (Mounjaro) 5 mg/0.5 mL pen injector injection Inject 0.5 mL (5 mg total) under the skin once a week 2 mL 6 03/13/20 25 025 Discontinued(Al ternate therapy) tirzepatide (Mounjaro) 5 mg/0.5 mL pen injector injection Inject 0.5 mL (5 mg total) under the skin once a week 2 mL 6 04/27/20 25 025 Discontinued Active Problems Problem Noted Date Diagnosed Date Severe obesity 05/22/2025 Assessment & Plan (05/22/2025 2:03 PM CDT): Increase Mounjaro. Hyperlipidemia associated with type 2 diabetes stefan howard 01/18/2025 Assessment & Plan (05/22/2025 1:48 PM CDT): Chronic problem. On statin therapy, no changes. Type 2 diabetes mellitus wit h hyperglycemia, without long-term current use of insulin 07/12/2024 Assessment & Plan (05/22/2025 2:04 PM CDT): Chronic problem, significantly improving. Symptomatically hypoglycemic in afternoons. Stop glimepiride. Increase Mounjaro to 7.5 mg weekly. Start checking sugars a few times a week. Request eye exam. Assessment & Plan (07/12/2024 12:02 PM CDT): [...] Used Date Smoking Tobacco: Former Cigarettes 1 55.5 S tarted: 1970 Smokeless Tobacco: Never Tobacco [...] on file Legal Sex Female 7:24 PM HEAD SCORER Gender Identity Not on file Sexual Orientation Straight 07/12/2024 9: 57 AM CDT Last Filed Vital Signs Vital Sign Reading Time Taken Comments Blood Pressure 126/74 05/22/2025 1:10 PM CDT Pulse 62 05/22/2025 1:10 PM CDT Temperature 36.7 C (98.1 F) 04/27/2019 2:57 PM CDT Respiratory Rate 18 05/22/2025 1:10 PM CDT Oxygen Saturation 97% 04/27/2019 2:57 PM CDT Inhaled Oxygen Concentration - - Weight 96.8 kg (213 lb 6.4 oz) 05/22/2025 1:10 P M CDT Height 157.5 cm (5' 2) 05/22/2025 1:10 PM CDT Body Mass Index 39.03 05/22/2025 1:10 PM CDT Plan of Treatment Not on file Procedures Procedure Name Priority Date/Time Associated Diagnosis Comments POCT GLUCOSE Routine 05/22/2025 1:15 PM CDT Type 2 diabetes mellitus with hyperglycemia, without long-term current use of insulin (HCC) POCT HEMOGLOBIN A1C Routine 05/22/2025 1 :15 PM CDT Type 2 diabetes mellitus with hyperglycemia, without long-term current use of insulin (HCC) ALBUMIN CREATININE RATIO, URINE Routine 01/18/2025 12:00 AM HEAD SCORER Type 2 diabetes mellitus with hyperglycemia, without long-term current use of insulin (HCC) BASIC METABOLIC PANEL Routine 01/16/2025 10:20 AM HEAD SCORER LIPID PANEL Routine 01/16/2025 10:20 AM HEAD SCORER from Last 3 Months or Most Recently Relevant to Health Maintenance Results * POCT hemoglobin A1c (05/22/2025 1:15 PM CDT) [facility] Hemoglobin A1C, POC 5.6 4.0 - 5.6 % Capillary blood 05/22/2025 1 :15 PM CDT Trish DISLA POINT OF CARE TEST ORDE RABLES Final Result * (ABNORMAL) POCT glucose (05/22/2025 1:15 PM CDT) [facility] Glucose Blood, POC 101 Normal Fasting 70 - 100, Random <200 mg/dL Comment:PPG 20 Minutes Blood 05/22/2025 1:15 PM CDT Result [facility] Trish DISLA POINT OF CARE TEST ORDE RABLES Final Result * Albumin Creatinine Ratio, Urine (01/18/2025 12:00 AM HEAD SCORER) [facility] Albumin Ur 15.5 mg/L Comment: Interpretive Data No reference range established. Current interpretive data was last revised 2019. Creatinine Ur 69.2 mg/dL [facility] MENDEZ Comment: Interpretive Data No reference range established. Current interpretive data was last revised 2019. Albumin Creatinine Ratio, Ur 22 1 - 29 mg/g SAMAN[facility]A MENDEZ Urine 01/18/2025 01/18/2025 1:0 4 PM HEAD SCORER Zayda Hawthorne MD LAB URINE ORDERABLES Final Resul t SAMANTHA MENDEZ [address] Department [place] [address] * (ABNORMAL) Lipid panel (01/16/2025 10:20 AM HEAD SCORER) SCRIBED Cholesterol, Total 144 100 - 199 [facility] SCRIBED HDL 52(A) > - 39 [facility] SCRIBED LDL 72 0 - 99 [facility] SCRIBED Triglycerides 109 0 - 149 [facility] Blood 01/16/2025 10:2 0 AM HEAD SCORER Marielena Choi MD LAB BLOOD ORDERABLES Fi nal Result [facility] * (ABNORMAL) Basic metabolic panel (01/16/2025 10:20 AM HEAD SCORER) SCRIBED Sodium 144 134 - 144 mmol/L [facility] SCRIBED Potassium 4.6 3.5 - 5.2 mmol/L [facility] SCRIBED Chloride 106 96 - 106 mmol/L [facility] SCRIBED Carbon Dioxide 23 20 - 29 mmol/L [facility] SCRIBED Urea Nitrogen (BUN) 13 8 - 27 mg/dl [facility] SCRIBED Creatinine 0.51(A) 0.57 - 1.00 mg/dl [facility] SCRIBED Glucose 156(A) 70 - 99 mg/dl [facility] SCRIBED eGFR in NonAfrican Iraqi 104(A) 0 - 59 [facility] Blood 01/16/2025 10:2 0 AM HEAD SCORER Marielena Choi MD LAB BLOOD ORDERABLES Ed ited Result - Final [facility] from Last 3 Months or Most Recently Relevant to Health Maintenance Insurance OZIEL PREFERRED MEDICARE [facility] MEDICARE SUPPLEMENT Care Teams Chalk Machine Operator Relationship Specialty Start Date End Date Marielena Choi MD [address] [address] PCP - General Internal Medicine 10/13/18 Bruce Diaz MD Medical Oncologist/Plant Supervisor Hematology and Oncology 10/12/18
--- OUTSIDE RECORDS SUMMARY | 2025-05-25 09:55 | XMS_ITS | Clinical Summary ---
Author Organization [facility] Address [address] [place] [address] Care Team Providers Care Crew Director Name Role Phone Bruce Diaz MD Unavailable [phone] Marielena Choi MD Primary Care Provider Allergies [...] 1 tablet (75 mcg total) by mouth basting puller before breakfast 025 Discontinued(Al ternate therapy) tirzepatide [...] Mounjaro. Hyperlipidemia associated with type 2 diabetes m ellitus 01/18/2025 Assessment & Plan (05/22/2025 1:48 PM [...] Description 05/22/2025 1:30 PM CDT Office Visit [facility] [address] [address] Trish Rubi PA Type 2 diabetes mellitus with hyperglycemia, without long-term current use of insulin (HCC) (Primary Dx); Hyperlipidemia associated with type 2 diabetes mellitus (HCC); Severe obesity (HCC) 04/27/2025 Telephone [facility] [address] [address] Zayda Hawthorne MD Med Refill from Last 3 Months Surgical History Surgery [...] on file Legal Sex Female 7:24 PM STRAND BUNCHER FINE WIRE Gender Identity Not on file Sexual Orientation [...] 05/22/2025 1:10 PM CDT Plan of Treatment Health Maintenance Due Date Last Done Comments Breast Cancer Screening-Mammogram 1959 Cervical Cancer Screening 1959 Colon Cancer Screening-Colonoscopy 1959 Hepatitis C Screening 1959 Osteoporosis Screening-Bone Density Scan 1959 Dilated Eye Exam 1959 Hepatitis B Screening 1977 Covid-19 Vaccine (2023-2 ) 07/17/2024 12/23/2021, 01/20/2021, 01/19/2021 Well Visit 65+ 2024 Fall Risk Assessment 07/12/2025 07/12/2024 Influenza Vaccine (#1) 2025 , 10/26/2023, 11/19/2022, Additional history exists Hemoglobin A1C 11/22/2025 05/22/2025, 03/0 03/2025, 07/12/2024, Additional history exists Lipid Panel 01/16/2026 01/16/2025, 05/02/2024 eGFR 01/16/2026 01/16/2025, 05/02/2024 Albumin Creatinine Ratio, Urine 01/18/2026 Depression Screening 01/18/2026 01/18/2025, 07/12/20 24 Foot Exam 05/22/2026 05/22/2025 DTaP/Tdap/Td Vaccine (2 - Td or Tdap) 08/28/2027 08/28/2017 Pneumococcal vaccine 65+ Completed 02/18/2022, 12/17 Zoster Vaccine Completed 05/26/2022, 02/18/2022 Procedures Procedure Name Priority Date/Time Associated Diagnosis Comments POCT GLUCOSE Routine 05/22/2025 1:15 PM CDT Type 2 diabetes mellitus with hyperglycemia, without long-term current use of insulin (HCC) POCT HEMOGLOBIN A1C Routine 05/22/2025 1:15 PM CDT Type 2 diabetes mellitus with hyperglycemia, without long-term current use of insulin (HCC) ALBUMIN CREATININE RATIO, URINE Routine 01/18/2025 12:00 AM STRAND BUNCHER FINE WIRE Type 2 diabetes mellitus with hyperglycemia, without long-term current use of insulin (HCC) BASIC METABOLIC PANEL Routine 01/16/2025 10:20 AM STRAND BUNCHER FINE WIRE LIPID PANEL Routine 01/16/2025 10:20 AM STRAND BUNCHER FINE WIRE from Last 3 Months or Most Recently Relevant to Health Maintenance Results * POCT hemoglobin A1c (05/22/2025 1:15 PM CDT) [facility] Hemoglobin A1C, POC 5.6 4.0 - 5.6 % Capillary blood 05/22/2025 1 :15 PM CDT Result [facility] Trish DISLA POINT OF CARE TEST ORDE RABLES Final Result * (ABNORMAL) POCT glucose (05/22/2025 1:15 PM CDT) [facility] Glucose Blood, POC 101 Normal Fasting 70 - 100, Random <200 mg/dL Comment:PPG 20 Minutes Blood 05/22/2025 1:15 PM CDT Result [facility] Trish DISLA POINT OF CARE TEST ORDE RABLES Final Result * Albumin Creatinine Ratio, Urine (01/18/2025 12:00 AM STRAND BUNCHER FINE WIRE) [facility] Albumin Ur 15.5 mg/L Comment: Interpretive Data No reference range established. Current interpretive data was last revised 2019. Creatinine Ur 69.2 mg/dL SAMANTHA Comment: Interpretive Data No reference range established. Current interpretive data was last revised 2019. Albumin Creatinine Ratio, Ur 22 1 - 29 mg/g SAMANTHA MENDEZ Urine 01/18/2025 01/18/2025 1:0 4 PM STRAND BUNCHER FINE WIRE Result [facility] Zayda Hawthorne MD LAB URINE ORDERABLES Final Resul t SAMANTHA [address] [address] Department [place] [address] * (ABNORMAL) Lipid panel (01/16/2025 10:20 AM STRAND BUNCHER FINE WIRE) [facility] SCRIBED Cholesterol, Total 144 100 - 199 [facility] SCRIBED HDL 52(A) > - 39 [facility] SCRIBED LDL 72 0 - 99 [facility] SCRIBED Triglycerides 109 0 - 149 [facility] Blood 01/16/2025 10:2 0 AM STRAND BUNCHER FINE WIRE us Marielena Choi MD LAB BLOOD ORDERABLES Fi nal Result [facility] * (ABNORMAL) Basic metabolic panel (01/16/2025 10:20 AM STRAND BUNCHER FINE WIRE) SCRIBED Sodium 144 134 - 144 mmol/L [facility] SCRIBED Potassium 4.6 3.5 - 5.2 mmol/L [facility] SCRIBED Chloride 106 96 - 106 mmol/L [facility] SCRIBED Carbon Dioxide 23 20 - 29 mmol/L [facility] SCRIBED Urea Nitrogen (BUN) 13 8 - 27 mg/dl [facility] SCRIBED Creatinine 0.51(A) 0.57 - 1.00 mg/dl [facility] SCRIBED Glucose 156(A) 70 - 99 mg/dl [facility] SCRIBED eGFR in NonAfrican Barbadian 104(A) 0 - 59 [facility] Blood 01/16/2025 10:2 0 AM STRAND BUNCHER FINE WIRE us Marielena Choi MD LAB BLOOD ORDERABLES Ed ited Result - Final [facility] from Last 3 Months or Most Recently Relevant to Health Maintenance Insurance [employer]EL PREFERRED MEDICARE [facility] MEDICARE SUPPLEMENT Care Teams Crew Director Relationship Specialty Start Date End Date Marielena Choi MD [address] [address] PCP - General Internal Medicine 10/13/18 Bruce Diaz MD Medical Oncologist/Spool Cleaner Hand Hematology and Oncology 10/12/18
--- OUTSIDE RECORDS SUMMARY | 2025-05-25 09:55 | XMS_ITS | Data Portability ---
Author Organization [place] - [facility] [place], Main Office Address [address] [place] [address] Care Team Providers Care Pigment Supplier Name Role Phone NUZHAT DANIEL Primary Care Provider NUZHAT DANIEL Referring Provider [phone] Assessment No assessment recorded. Plan of Treatment Reminders Order Date Submit Date Provider Last Modified By Organization Details Last Modified Time Details Appointments None recorded. Lab HbA1c (hemoglobi n A1c), blood 2022 023 [facility], [address] [place], [address], 3 10:20:30 CMP, serum or plasma 2022 023 [facility], [address] [place], [address], 3 16:54:34 microalbum in/creatin ine, mass ratio, urine 2022 023 [facility], [address] [place], [address], 3 10:20:30 lipid panel, serum 2022 023 [facility], [address] [place], [address], 3 18:44:42 T3, free, serum or plasma 2022 023 [facility], [address] [place], [address], 3 10:35:17 T4, free, serum 2022 023 [facility], [address] [place], [address], 3 10:35:17 TSH, serum or plasma 2022 023 [facility], [address] [place], [address], 3 10:35:17 Referral None recorded. Procedures None recorded. Surgeries None recorded. Imaging None recorded. Medication Orders glimepirid e 2 mg tablet 2022 023 [facility], [address] [place] [address], [address], 3 11:51:52 metformin ER 500 mg tablet,ext ended release 24 hr 2022 023 [facility], [address] [place] [address], [address], 3 11:51:57 Farxiga 10 mg tablet 2022 023 [facility], [address] [place] [address], [address], 3 11:51:51 Unithroid 75 mcg tablet 2022 023 [facility] [address], [address] [place] [address], [address], 3 11:50:10 Bydureon BCise 2 mg/0.85 mL subcutaneo us auto-injec tor 2022 023 [email or web address] [facility], [address] [place] [address], [address], 3 11:20:47 Patient TargetsNo targets recorded. Patient InstructionsNo instructions recorded. Reason for Referral None Reported. Results Created Date Observation Date Name Description Value Unit Range Abnormal Flag Note LastModifiedBy Organization Detail LastModifiedTime Result Notes None recorded. Problems Name Problem SNOMED Code Status Onset Date Resolution Date Notes Provider Name and Address Organization Details Recorded Time Loss of hair 718191864 Active 2021 Not Available [facility] 3 02:30:45 Dyslipidemia 167694227 Active 2021 Not Available [facility] 3 02:30:45 Hypothyroidis m 31097609 Active 2021 Not Available [facility] 3 02:30:45 Uncontrolled type 2 diabetes mellitus 319277218 Active 2021 Not Available [facility] 3 02:30:45 Paronychia of toe of right foot due to ingrown toenail 126810135 Active 2020 Not Available [facility] 3 02:30:45 Dystrophia unguium 59140210 Active 2021 Not Available [facility] 3 02:30:45 Well controlled type 2 diabetes mellitus 512660636 Active 2022 Jennifer Donohue MD [address] [place] [address], [id number] , [facility] 3 10:08:03 Type 2 diabetes mellitus without complication 174992439 Active 2022 Vivienne Hicks [facility], [facility] [employer] [facility] 3 11:00:46 Problem Notes None recorded. Procedures Surgical History Date Name Laterality Status Provider Name and Address Organization Details Recorded Time 12/20/19 Biopsy completed Not Available [facility] 3 02:27:50 Gallbladder Surgery completed Not Available [facility] 01/14/2023 02:27:50 Back Surgeries completed Not Available [facility] 01/14/2023 02:27:50 Tonsillectomy completed Not Available [facility] 01/14/2023 02:27:50 Lung Surgery [facility] 01/14/2023 02:27:50 Imaging Results None recorded. [...] Not available Not available Not available 01/14/2023 [id number] SNOMED Not Available [facility] 3 02:34:31 3234 nickel environme nt Not available Not available Not available 01/14/2023 65314 29 RxNorm Not Available [facility] 3 02:34:31 Medications Name Sig Start Date [...] Body height Heart rate Body weight Systolic And Diastolic Provider Name and Address Organization Details Last Updated DateTime 12/23/2021 36.2 kg/m2 157.48 cm 74 /min 73448.29 g 147/105 mm[Hg] Not Available [employer] 03/01/202 3 02:28:53 Date Recorded Body height Body mass index (BMI) Body weight Heart rate Body temperature Systolic And Diastolic Provider Name and Address Organization Details Last Updated DateTime 3 157.48 cm 38.1 kg/m2 88918.9 3 g 96 /min 97.8 [degF] 142/80 mm[Hg] TATIANNA Plascencia [facility] [employer] [facility] 3 10:00:48 Date Recorded Body mass index (BMI) Body height Oxygen saturation Oxygen saturation in Arterial blood by Pulse oximetry Heart rate Body temperature Body weight Systolic And Diastolic Provider Name and Address Organization Details Last Updated DateTime 2 37.9 kg/m2 157.48 cm 97 % 97 % 81 /min 97.8 [degF] 60260.6 2 g 155/95 mm[Hg] Not Available [facility] 3 02:28:53 Date Recorded Body height Body mass index (BMI) Body weight Respiratory rate Body temperature Heart rate Systolic And Diastolic Provider Name and Address Organization Details Last Updated DateTime 3 157.48 cm 37.7 kg/m2 19642.7 5 g 16 /min 97.9 [degF] 69 /min 140/80 mm[Hg] Mita Barraza RN [facility] [employer] [facility] 3 11:23:36 Date Recorded Body mass index (BMI) Body height Heart rate Body temperature Body weight Systolic And Diastolic Provider Name and Address Organization Details Last Updated DateTime 2 38.4 kg/m2 157.48 cm 88 /min 97.8 [degF] 53864.1 2 g 122/82 mm[Hg] Not Available [facility] 3 02:28:53 Social History Question Answer Notes LastModified by Organizat ion Details LastModified Time Tobacco Smoking Status Former Smoker Not Available [facility] 01/14/2023 02:25:16 What Is Your Level Of Caffeine Consumption? Moderate [id number] Information not available 01/14/2023 How Much Tobacco Do You Chew? None MIGRATION.[id number] Information not available 01/14/2023 In The 14 Days Before Symptom Onset, Have You Had Close Contact With A Laboratory-confirm ed COVID-19 While That Case Was Ill? No [id number] Information not available 01/14/2023 In The 14 Days Before Symptom Onset, Have You Had Close Contact With A Person Who Is Under Investigation For COVID-19 While That Person Was Ill? No [id number] Information not available 01/14/2023 Which Illicit Or Recreational Drugs Have You Used? None MIGRATION.[id number] Information not available 01/14/2023 When Did You Quit Smoking? 1-5yearssince lastcigarette MIGRATION.[id number] 6213 Information not available 01/14/2023 What Was The Date Of Your Most Recent Tobacco Screening? 09/09/2021 [id number].[id number] [id number] Information not available 01/14/2023 Has Tobacco Cessation Counseling Been Provided? No MIGRATION.[id number] Information not available 01/14/2023 Sex: Unknown Functional Status Question Answer Note LastModified by Organizat ion Details LastModified Time Do you use any illicit or recreational drugs? No MIGRATION.[id number] 7475 Information not available 01/14/2023 Do you or have you ever used any other forms of tobacco or nicotine? No MIGRATION.888231 2022 Information not available 01/14/2023 What is your level of alcohol consumption? None MIGRATION.005121 9678 Information not available 01/14/2023 Do you or have you ever used smokeless tobacco? 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 Never used electronic cigarettes MIGRATION.306420 8499 Information not available 01/14/2023 Mental Status None recorded. Family History Relationship Description Onset Age of this Age Resolved Age Notes LastModified by Organization Details LastModified Time Brother Diabetes mellitus [id number] Not available 01/14/2023 02:27:53 Brother Family history of malignant neoplasm MIGRATION.542 [id number] Not available 01/14/2023 02:27:53 Sister Diabetes mellitus [id number].[id number] Not available 01/14/2023 02:27:53 Sister Family history of malignant neoplasm [id number].093 [id number] Not available 01/14/2023 02:27:53 Father Diabetes mellitus MIGRATION.268 [id number] Not available 01/14/2023 02:27:53 Father Heart disease MIGRATION.962 [id number] Not available 01/14/2023 02:27:53 Father Family history of malignant neoplasm MIGRATION.277 [id number] Not available 01/14/2023 02:27:53 Mother Diabetes mellitus MIGRATION.491 [id number] Not available 01/14/2023 02:27:53 Mother Heart disease MIGRATION.065 [id number] Not available 01/14/2023 02:27:53 Mother Family history of malignant neoplasm MIGRATION.048 [id number] Not available 01/14/2023 02:27:53 Medical History Condition Response OTHER # 1 Y HIGH CHOLESTEROL / HYPERLIPIDEMIA Y SURGERY Y DEPRESSION (INCLUDING POST ) Y DIABETES, TYPE Y CANCER: SPECIFY Y Gynecological HistoryNo gynecological history recorded. Obstetrics History GPAL:G 0 P 0 0 0 0 Past Encounters Encounter ID Performer Location Encounter Start Date Encounter Closed Date Diagnosis/Indication Diagnosis SNOMED-CT Code Diagnosis ICD10 Code Diagnosis Note [id number] MD PENNY Ludwig IGRATION_ DEFAULT_1 _1 , 01/24/2021 00:00:00 01/24/2021 17:45:41 [id number] MD PENNY Ludwig IGRATION_ DEFAULT_1 _1 , 03/21/2021 00:00:00 03/21/2021 15:01:07 [id number] MD PENNY Ludwig IGRATION_ DEFAULT_1 _1 , 06/27/2021 00:00:00 06/27/2021 18:17:15 [id number] TEE Holt IGRATION_ DEFAULT_1 _1 , 09/09/2021 00:00:00 09/10/2021 10:04:43 [id number] TEE Holt IGRATIONSushila DEFAULT_1 _1 , 2021 00:00:00 09/24/2021 09:40:18 [id number] Alexey Rodriguez DPM [facility] [place] [address] [facility] [address] [place] [address] 12/17/2021 00:00:00 12/17/2021 15:33:32 [id number] GoelM IGRATION_ DEFAULT_1 _1 , 12/23/2021 00:00:00 12/23/2021 15:40:21 [id number] Jennifer Donohue MD _YOON IGRATION_ DEFAULT_1 _1 , 02/27/2022 00:00:00 02/28/2022 09:15:16 [id number] [facility] [address] [place] [address] 09/04/2022 00:00:00 09/04/2022 18:34:01 [id number] Jennifer Donohue MD [facility] [address] [place] [address] 01/19/2023 09:41:03 01/19/2023 10:16:53 Well controlled type 2 diabetes mellitus 783262773 E11.9 A1C not sent- her glucose levels [...] based snack at bedtime 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 She has no hx of [...] Continue metformin and glimepirid e scale. Hypothyroidism 34293252 E03.9 Continue LT4 50 mcg daily. She [...] and minerals and reduce inflammati on. Dyslipidemia 990839876 E 78.5 Continue rosuvastat in 20 mg daily for lipid control. Spent up to 25 minutes preparing to see the patient (eg, review of tests), obtaining and/or reviewing separately obtained history, performing a medically appropriat e examinatio n and evaluation , counseling and educating the patient, ordering medication s, tests, along with documentin g clinical informatio n in the electronic health record, edmund arzate interpreti ng results and communicat ing results to the patient. RTC in 6 months. Patient was provided a handwritte n lab order which contains our fax number. If she chooses to go outside of the [facility] system to obtain labwork she was [...] in her case. She voiced understand ing. [id number] Jennifer Donohue MD [facility] [address] [place] [address] 07/07/2023 11:00:13 07/07/2023 12:42:04 Uncontrolled type 2 diabetes mellitus 404114574 E11.65 a1c of 7.6% - she is [...] applicatio n to continue on the farxiga mcc-she has 6 week samples to continue therapy. Continue on metformin for insulin sensitizat ion and glimepirid e scale. Hypothyroidism 41851906 E03.9 Continue on LT4 but uptitrate to [...] Recorded Advance Directives Directive None Recorded Payers Insurance Date Sequence Insurance Name Policy Number Policy Awan Covered Member ID Awan Member ID Guarantor Name 07/04/2023 1 [id number] Dulce Melsisa [id number] Dulce Melissa Notes Date Note Type [...] Crnormal LFT Jennifer Donohue MD [address], [facility] [address], [place], [address], [employer] 01/19/2023 10:18:55 07/07/2023 text/html 62 yo female [...] pg/mla1c of 7.6% Jennifer Donohue MD [address], [facility] [address], [place], [address], [employer] 07/07/2023 12:55:34 OBGyn Episode No OBEpisode recorded.
--- OUTSIDE RECORDS SUMMARY | 2025-05-25 09:55 | XMS_ITS | Data Portability ---
Author Organization [facility] Sirena Parsons Address [address] [place] [address] Care Team Providers Care Wood Web Weaving Machine Operator Name Role Phone YOLANDA JACKSON Psychiatrist JAIME GIRON Envelope Sealer Operator ARIANE MORE Medical Oncologist [phone] SHAHEEN ZAPATA Auto Servicer Assessment No assessment recorded. Plan of Treatment Reminders Order Date Submit Date Provider Last Modified By Organization Details Last Modified Time Details Appointments ANY 15 2024 09:00A Carlos Choi MD Not available Not available Not available Lab TSH, ultra-sen sitive, serum 2024 025 J[facility] ANTON[facility], [facility], [address], [place], [address], 02/21/2025 08:57:10 TSH, ultra-sen sitive, serum 2023 025 JUAN ANTONIO LABZOILA, [facility], [address], [place], [address], 01/17/2025 10:13:29 basic metabolic 1998 panel, serum or plasma 2023 025 JUAN ANTONIO MEJIA, [facility], [address], [place], [address], 01/17/2025 10:13:25 CBC 2023 025 JUAN ANTONIO [facility], [address], [address], [place], [address], 01/17/2025 10:13:30 HbA1c (hemoglob in A1c), blood 2023 025 JUAN ANTONIO [facility], [address], [address], [place], [address], 01/17/2025 10:13:28 lipid panel, serum 2023 025 JUAN ANTONIO [facility], [address], [address], [place], [address], 01/17/2025 10:13:24 microalbu min/creat inine, mass ratio, urine 2023 025 [facility], [address], [address], [place], [address], 03/17/2025 14:08:48 HbA1c (hemoglob in A1c), blood 2023 024 daryl [facility], [address], [address], [place], [address], 09/19/2024 09:38:04 lipid panel, serum 2023 024 daryl [facility], [address], [address], [place], [address], 09/19/2024 09:38:08 basic metabolic 1998 panel, serum or plasma 2023 024 JUAN ANTONIO [facility], [address], [address], [place], [address], 05/03/2024 10:12:59 CBC 2023 024 JUAN ANTONIO [facility], [address], [address], [place], [address], 05/03/2024 10:13:01 HbA1c (hemoglob in A1c), blood 2023 024 JUAN ANTONIO [facility], [address], [address], [place], [address], 05/03/2024 10:13:00 lipid panel, serum 2023 024 JUAN ANTONIO [facility], [address], [address], [place], [address], 05/03/2024 10:12:58 TSH, ultra-sen sitive, serum 2023 024 JUAN ANTONIO [facility], [address], [address], [place], [address], 05/03/2024 10:13:00 HbA1c (hemoglob in A1c), blood 2022 024 JUAN ANTONIO [facility], [address], [address], [place], [address], 01/19/2024 06:17:00 lipid panel, serum 2022 024 JUAN ANTONIO [facility], [address] [facility], [address], [place], [address], 01/19/2024 06:16:59 TSH, ultra-sen sitive, serum 2022 024 JUAN ANTONIO [facility], [address] [facility], [address], [place], [address], 01/19/2024 06:17:00 Referral diabetic ophthalmo logy referral 2023 025 JUAN ANTONIOSOS [employer], [facility], [place], [address], 02/22/2025 16:44:58 gastroent erologist referral - GUY 2023 024 [facility], [address], [place], [address], 05/10/2025 11:04:33 Procedures None recorded. Surgeries None recorded. Imaging LDCT, chest, for lung cancer screening 2023 024 [facility] ([facility]), [address] [place], [address], 10/14/2024 04:28:13 US, liver 2022 023 [facility] ([facility]), [address] [place], [address], 11/11/2023 10:41:04 Medication Orders pioglitaz one 15 mg tablet 2023 024 [facility] [address] [facility], [place], [address], 05/24/2024 16:32:22 Rybelsus 3 mg tablet 2022 024 [facility], [facility] [place], [place], [id number], 02/20/2025 10:46:49 Patient TargetsNo targets recorded. Patient Instructions Encounter Date Encounter Id Patient Instructions Last Modified By Organization Details Last Modified Time 10/26/2023 [id number] influenza (flu) vaccine: care instructions oajao Not available 10/26/2023 10:06:32 hypothyroidism: care instructions oajao Not available 10/26/2023 10:28:25 Start Rybelsus U S of the liver Ophthalmology as referred Labs (Old and new orders) in January, Follow up in 6 months and PRN oajao Not available 10/26/2023 10:17:26 04/26/2024 [id number] Labs Weight loss GI in ~ 09/2024 LDCT in 09/2024 Follow up in 5 months oajao Not available 04/26/2024 11:21:14 05/24/2024 [id number] Add Pioglitazone Continue the current regimen Labs in August, LDCT as ordered by her Oncologist and to be done at (Late 09/2024) Follow up as scheduled on 09/19/2024 oajao Not available 05/24/2024 16:49:32 09/19/2024 [id number] influenza (flu) vaccine: care instructions oajao Not available 09/19/2024 09:54:42 Ophthalmology 11/2024 Labs in 12/2024 Follow up in 5 months and PRN oajao Not available 09/19/2024 10:05:07 02/20/2025 [id number] body mass index: care instructions oajao Not available 02/20/2025 14:01:22 learning about healthy weight oajao Not available 02/20/2025 14:01:22 Labs Follow up i n 5 months oajao Not available 02/20/2025 10:51:04 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 Referral for Steatotic liver disease GUY GUY [...] Only) [address], [place], [address], 08/16/2024 12:31:58 01/18/2001/19/2024 LIPID PANEL cholesterol, total 120 mg/dL 100-19 9 Not Available [facility] ([facility]) [address], [place], [address], 01/19/2024 06:16:59 01/18/2001/19/2024 LIPID PANEL triglyceride s 92 mg/dL 0-149 Not Available [facility] ([facility]) [address] [place], [address], 01/19/2024 06:16:59 01/18/20 24 01/19/2024 LIPID PANEL HDL cholesterol 54 mg/dL >39 Not Available [facility]) [address] [place], [address], 01/19/2024 06:16:59 01/18/20 24 01/19/2024 LIPID PANEL VLDL cholesterol dave 18 mg/dL 5-40 Not Available [facility] ([facility]) [address] [place], [address], 01/19/2024 06:16:59 01/18/20 24 01/19/2024 LIPID PANEL LDL chol calc ([facility]) 48 mg/dL 0-99 Not Available [facility] ([facility]) [address] [place], [address], 01/19/2024 06:16:59 01/18/20 24 01/19/2024 TSH RFX ON ABNOR MAL TO FREE T4 TSH 1.570 uIU/m L 0.450- 4.500 Not Available [facility] ([facility]) [address] [place], [address], 01/19/2024 06:16:59 01/18/20 24 01/18/2024 HEMOG LOBIN A1C hemoglobin A1C 8.4 % 4.8-5. 6 above high normal Predi abete s: 5.7 - 6.4 Diabe pierce: >6.4 Glyce pete contr ol for adult s with diabe pierce: <7.0 Not Available [facility] ([facility]) [address] [place], [address], 01/19/2024 06:17:00 05/02/20 24 05/03/2024 LIPID PANEL cholesterol, total 120 mg/dL 100-19 9 Not Available [facility] ([facility]) [address] [place], [address], 05/03/2024 10:12:58 05/02/20 24 05/03/2024 LIPID PANEL triglyceride s 97 mg/dL 0-149 Not Available [facility] ([facility]) [address] [place], [address], 05/03/2024 10:12:58 05/02/20 24 05/03/2024 LIPID PANEL HDL cholesterol 54 mg/dL >39 Not Available [facility] ([facility]) [address] [place], [address], 05/03/2024 10:12:58 05/02/20 24 05/03/2024 LIPID PANEL VLDL cholesterol dave 18 mg/dL 5-40 Not Available [facility] ([facility]) [address] [place], [address], 05/03/2024 10:12:58 05/02/20 24 05/03/2024 LIPID PANEL LDL chol calc ([facility]) 48 mg/dL 0-99 Not Available [facility] ([facility]) [address] [place], [address], 05/03/2024 10:12:58 05/02/20 24 05/03/2024 BASIC METAB OLIC PANEL (7) glucose 137 mg/dL 70-99 above high normal Not Available [facility] ([facility]) [address] [place], [address], 05/03/2024 10:12:59 05/02/20 24 05/03/2024 BASIC METAB OLIC PANEL (7) BUN 11 mg/dL 8-27 Not Available [facility] ([facility]) [address] [place], [address], 05/03/2024 10:12:59 05/02/20 24 05/03/2024 BASIC METAB OLIC PANEL (7) creatinine 0.60 mg/dL 0.57-1 .00 Not Available [facility] ([facility]) [address] [facility] [place], [address], 05/03/2024 10:12:59 05/02/20 24 05/03/2024 BASIC METAB OLIC PANEL (7) eGFR 100 mL/mi n/1.7 3 >59 Not Available [facility] ([facility]) [address] [facility] [place], [address], 05/03/2024 10:12:59 05/02/20 24 05/03/2024 BASIC METAB OLIC PANEL (7) BUN/creatini ne ratio 18 12-28 Not Available [facility] ([facility]) [address] [facility] [place], [address], 05/03/2024 10:12:59 05/02/20 24 05/03/2024 BASIC METAB OLIC PANEL (7) sodium 140 mmol/ L 134-14 4 Not Available [facility] ([facility]) [address] [facility] [place], [address], 05/03/2024 10:12:59 05/02/20 24 05/03/2024 BASIC METAB OLIC PANEL (7) potassium 4.3 mmol/ L 3.5-5. 2 Not Available [facility] ([facility]) [address] [facility] [place], [address], 05/03/2024 10:12:59 05/02/20 24 05/03/2024 BASIC METAB OLIC PANEL (7) chloride 103 mmol/ L 96-106 Not Available [facility] ([facility]) [address] [facility] [place], [address], 05/03/2024 10:12:59 05/02/20 24 05/03/2024 BASIC METAB OLIC PANEL (7) carbon dioxide, total 22 mmol/ L 20-29 Not Available [facility] ([facility]) [address] [place], [address], 05/03/2024 10:12:59 05/02/20 24 05/03/2024 HEMOG LOBIN A1C hemoglobin A1C 9.1 % 4.8-5. 6 above high normal Predi abete s: 5.7 - 6.4 Diabe pierce: >6.4 Glyce pete contr ol for adult s with diabe peirce: <7.0 Not Available [facility] ([facility]) [address] [place], [address], 05/03/2024 10:12:59 05/02/20 24 05/03/2024 TSH TSH 1.230 uIU/m L 0.450- 4.500 Not Available [facility] ([facility]) [address] [place], [address], 05/03/2024 10:13:00 05/02/20 24 05/03/2024 CBC, PLATE LET, NO DIFFE RENTI AL WBC 7.8 x10e3 /uL 3.4-10 .8 Not Available [facility] ([facility]) [address] [place], [address], 05/03/2024 10:13:01 05/02/20 24 05/03/2024 CBC, PLATE LET, NO DIFFE RENTI AL RBC 4.84 x10e6 /uL 3.77-5 .28 Not Available [facility] ([facility]) [address] [place], [address], 05/03/2024 10:13:01 05/02/20 24 05/03/2024 CBC, PLATE LET, NO DIFFE RENTI AL hemoglobin 13.6 g/dL 11.1-1 5.9 Not Available [facility] ([facility]) [address] [place], [address], 05/03/2024 10:13:01 05/02/20 24 05/03/2024 CBC, PLATE LET, NO DIFFE RENTI AL hematocrit 42.0 % 34.0-4 6.6 Not Available [facility] ([facility]) [address] [facility], [place], [address], 05/03/2024 10:13:01 05/02/20 24 05/03/2024 CBC, PLATE LET, NO DIFFE RENTI AL MCV 87 fL 79-97 Not Available [facility] ([facility]) [address] [facility], [place], [address], 05/03/2024 10:13:01 05/02/20 24 05/03/2024 CBC, PLATE LET, NO DIFFE RENTI AL MCH 28.1 pg 26.6-3 3.0 Not Available [facility] ([facility]) [address] [facility], [place], [address], 05/03/2024 10:13:01 05/02/20 24 05/03/2024 CBC, PLATE LET, NO DIFFE RENTI AL MCHC 32.4 g/dL 31.5-3 5.7 Not Available [facility] ([facility]) [address] [facility], [place], [address], 05/03/2024 10:13:01 05/02/20 24 05/03/2024 CBC, PLATE LET, NO DIFFE RENTI AL RDW 13.1 % 11.7-1 5.4 Not Available [facility] ([facility]) [address] [facility], [place], [address], 05/03/2024 10:13:01 05/02/20 24 05/03/2024 CBC, PLATE LET, NO DIFFE RENTI AL platelets 280 x10e3 /uL 150-45 0 Not Available [facility] ([facility]) [address] [facility], [place], [address], 05/03/2024 10:13:01 07/12/20 24 07/12/2024 Hemog lobin A1c/H emogl obin. total in Blood hemoglobin A1C, POC 7 % low: 4%high : 5.6% Hemog lobin A1C, POC 7.0 4.0 - 5.6 % Not Available Not Available 01/02/2025 16:18:55 07/12/2007/12/2024 Hemog lobin A1c/H emogl obin. total in Blood interpretati on and review of laboratory results ABNORM AL Not Available Not Available 16:18:55 08/17/2008/18/2024 LIPID PANEL cholesterol, total 137 mg/dL 100-19 9 Not Available [facility] ([facility]) [address] [facility], [place], [address], 08/18/2024 06:22:06 08/17/2008/18/2024 LIPID PANEL triglyceride s 94 mg/dL 0-149 Not Available [facility] ([facility]) [address] [place], [address], 08/18/2024 06:22:06 08/17/2008/18/2024 LIPID PANEL HDL cholesterol 64 mg/dL >39 Not Available [facility] ([facility]) [address] [place], [address], 08/18/2024 06:22:06 08/17/2008/18/2024 LIPID PANEL VLDL cholesterol dave 17 mg/dL 5-40 Not Available [facility] ([facility]) [address] [place], [address], 08/18/2024 06:22:06 08/17/2008/18/2024 LIPID PANEL LDL chol calc ([facility]) 56 mg/dL 0-99 Not Available [facility] ([facility]) [address] [place], [address], 08/18/2024 06:22:06 08/17/2008/18/2024 HEMOG LOBIN A1C hemoglobin A1C 7.2 % 4.8-5. 6 above high normal Predi abete s: 5.7 - 6.4 Diabe pierce: >6.4 Glyce pete contr ol for adult s with diabe pierce: <7.0 Not Available [facility] ([facility]) [address] [place], [address], 08/18/2024 06:22:07 01/17/20 25 01/17/2025 LIPID PANEL cholesterol, total 144 mg/dL 100-19 9 Not Available [facility] ([facility]) [address] [place], [address], 01/17/2025 10:13:24 01/17/20 25 01/17/2025 LIPID PANEL triglyceride s 109 mg/dL 0-149 Not Available [facility] ([facility]) [address] [place], [address], 01/17/2025 10:13:24 01/17/20 25 01/17/2025 LIPID PANEL HDL cholesterol 52 mg/dL >39 Not Available [facility] ([facility]) [address] [place], [address], 01/17/2025 10:13:24 01/17/20 25 01/17/2025 LIPID PANEL VLDL cholesterol dave 20 mg/dL 5-40 Not Available [facility] ([facility]) [address] [place], [address], 01/17/2025 10:13:24 01/17/20 25 01/17/2025 LIPID PANEL LDL chol calc ([facility]) 72 mg/dL 0-99 Not Available [facility] ([facility]) [address] [place], [address], 01/17/2025 10:13:24 01/17/20 25 01/17/2025 BASIC METAB OLIC PANEL (7) glucose 156 mg/dL 70-99 above high normal Not Available [facility] ([facility]) [address] [place], [address], 01/17/2025 10:13:25 01/17/20 25 01/17/2025 BASIC METAB OLIC PANEL (7) BUN 13 mg/dL 8-27 Not Available [facility] ([facility]) [address] [facility] [place], [address], 01/17/2025 10:13:25 01/17/20 25 01/17/2025 BASIC METAB OLIC PANEL (7) creatinine 0.51 mg/dL 0.57-1 .00 below low normal Not Available [facility] ([facility]) [address] [facility] [place], [address], 01/17/2025 10:13:25 01/17/20 25 01/17/2025 BASIC METAB OLIC PANEL (7) eGFR 104 mL/mi n/1.7 3 >59 Not Available [facility] ([facility]) [address] [facility], [place], [address], 01/17/2025 10:13:25 01/17/20 25 01/17/2025 BASIC METAB OLIC PANEL (7) BUN/creatini ne ratio 25 12-28 Not Available [facility] ([facility]) [address] [facility] [place], [address], 01/17/2025 10:13:25 01/17/20 25 01/17/2025 BASIC METAB OLIC PANEL (7) sodium 144 mmol/ L 134-14 4 Not Available [facility] ([facility]) [address] [place], [address], 01/17/2025 10:13:25 01/17/20 25 01/17/2025 BASIC METAB OLIC PANEL (7) potassium 4.6 mmol/ L 3.5-5. 2 Not Available [facility] ([facility]) [address] [place], [address], 01/17/2025 10:13:25 01/17/20 25 01/17/2025 BASIC METAB OLIC PANEL (7) chloride 106 mmol/ L 96-106 Not Available [facility] ([facility]) [address] [place], [address], 01/17/2025 10:13:25 01/17/2001/17/2025 BASIC METAB OLIC PANEL (7) carbon dioxide, total 23 mmol/ L 20- Not Available [facility] ([facility]) [address] [facility], [place], [address], 01/17/2025 10:13:25 01/17/20 25 01/16/2025 UNABL E TO VOID unable to void COMMEN T Patie nt unabl e to void. Urine to be colle cted at a later date. Not Available [facility] ([facility]) [address] [facility], [place], [address], 01/17/2025 10:13:26 01/17/20 25 01/17/2025 HEMOG LOBIN A1C hemoglobin A1C 7.8 % 4.8-5. 6 above high normal Predi abete s: 5.7 - 6.4 Diabe pierce: >6.4 Glyce pete contr ol for adult s with diabe pierce: <7.0 Not Available [facility] ([facility]) [address] [facility], [place], [address], 01/17/2025 10:13:27 01/17/20 25 01/17/2025 TSH TSH 0.341 uIU/m L 0.450- 4.500 below low normal Not Available [facility] ([facility]) [address] [place], [address], 01/17/2025 10:13:29 01/17/20 25 01/17/2025 CBC, PLATE LET, NO DIFFE RENTI AL WBC 6.3 x10e3 /uL 3.4-10 .8 Not Available [facility] ([facility]) [address] [facility], [place], [address], 01/17/2025 10:13:30 01/17/20 25 01/17/2025 CBC, PLATE LET, NO DIFFE RENTI AL RBC 4.88 x10e6 /uL 3.77-5 .28 Not Available [facility] ([facility]) [address] [facility], [place], [address], 01/17/2025 10:13:30 01/17/2001/17/2025 CBC, PLATE LET, NO DIFFE RENTI AL hemoglobin 14.1 g/dL 11.1-1 5.9 Not Available [facility] ([facility]) [address] [facility], [place], [address], 01/17/2025 10:13:30 01/17/2001/17/2025 CBC, PLATE LET, NO DIFFE RENTI AL hematocrit 43.1 % 34.0-4 6.6 Not Available [facility] ([facility]) [address] [facility], [place], [address], 01/17/2025 10:13:30 01/17/2001/17/2025 CBC, PLATE LET, NO DIFFE RENTI AL MCV 88 fL 79-97 Not Available [facility] ([facility]) [address] [facility], [place], [address], 01/17/2025 10:13:30 01/17/2001/17/2025 CBC, PLATE LET, NO DIFFE RENTI AL MCH 28.9 pg 26.6-3 3.0 Not Available [facility] ([facility]) [address] [facility], [place], [address], 01/17/2025 10:13:30 01/17/20 25 01/17/2025 CBC, PLATE LET, NO DIFFE RENTI AL MCHC 32.7 g/dL 31.5-3 5.7 Not Available [facility] ([facility]) [address] [facility], [place], [address], 01/17/2025 10:13:30 01/17/20 25 01/17/2025 CBC, PLATE LET, NO DIFFE RENTI AL RDW 12.4 % 11.7-1 5.4 Not Available [facility] ([facility]) [address] [facility], [place], [address], 01/17/2025 10:13:30 01/17/20 25 01/17/2025 CBC, PLATE LET, NO DIFFE RENTI AL platelets 273 x10e3 /uL 150-45 0 Not Available [facility] ([facility]) [address] [facility], [place], [address], 01/17/2025 10:13:30 01/19/20 25 01/18/2025 Hemog lobin [...] 4.500 below low normal Not Available [facility] ([facility]) [address] [facility], [place], [address], 02/21/2025 08:57:10 04/24/20 25 04/25/2025 TSH TSH 2.610 uIU/m L 0.450- 4.500 Not Available [facility] ([facility]) [address] [facility], [place], [address], 04/25/2025 06:17:11 11/11/20 23 11/11/2023 US, liver No observ ation record ed. [facility] [address] [facility], [place], [address], 04/26/2024 09:44:18 10/13/20 24 10/12/2024 LDCT, chest , for lung cance r scree liliana No observ ation record ed. [facility] [address], [place], [address], 02/20/2025 10:43:55 04/24/20 25 04/24/2025 US, liver No observ ation record ed. [facility] [address], [place], [address], 04/24/2025 10:48:43 Result Notes None recorded. Problems Name Problem SNOMED Code Status Onset Date Resolution Date Notes Provider Name and Address Organization Details Recorded Time Mammogram declined 771645054 Active 2017 Not Available [facility] 4 07:50:25 Nicotine dependenc e 31604096 Active 2017 Not Available [facility] 4 07:50:25 Colon cancer screening declined 44914654412 109 Active 2017 Not Available [facility] 4 07:50:25 Colonosco py declined 76472134132 9100 Active 2017 Not Available [facility] 4 07:50:25 Tobacco dependenc e in remission 845441212 Active 2018 Not Available [facility] 4 07:50:25 Body mass index 30+ - obesity 458203960 Active 2018 Not Available [facility] 4 07:50:25 Squamous cell carcinoma of lung 404667199 Active 2018 Not Available [facility] 4 07:50:25 History of lung lobectomy 82326227197 043818 Active 2018 Not Available [facility] 4 07:50:25 Steatotic liver disease 768904425 Active 2019 Not Available [facility] 4 07:50:25 Thoracic spondylos is 556744617 Active 2019 Not Available [facility] 4 07:50:25 Postmenop ausal bleeding 23312950 Active 2021 US showed endometri al thickness of 8.1 mm Not Available [facility] 4 07:50:25 Breast cancer screening declined 46119574802 680233 Active 2023 Marielena Choi MD Attn: Accounting ,[address] [facility], [place], [address] , [place] [facility] 4 10:02:26 Acquired hypothyro idism 905331033 Active 2024 Marielena Choi MD Attn: Accounting ,[address] [facility], [place], [address] , [place] [facility] 5 09:14:39 Schizophr enia 46369728 Active 2016 Not Available [facility] 4 07:50:25 Type 2 diabetes mellitus without complicat ion 901039200 Active 2016 Not Available [facility] 4 07:50:25 Disorder of lipid metabolis m 188116388 Active 2016 Not Available [facility] 4 07:50:25 Problem Notes None recorded. Procedures Surgical History Date Name Laterality Status Provider Name and Address Organization Details Recorded Time 04/26/20 24 Diabetic Foot Exam completed Marielena Choi MD Attn: Accounting, [address] [facility], [place], [address], [place] [facility] 04/26/2024 10:03:51 01/08/20 22 Endometrial Biopsy completed SHIMON CHI Attn: Accounting, [address] [facility], [place], [address], [place] [facility] 01/08/2022 13:14:49 10/10/20 19 lobectomy of lung completed Marielena Choi MD Attn: Accounting, [address] [facility], [place], [address], [place] [facility] 10/28/2019 13:46:03 09/01/20 17 Date of Last Pap Smear completed YUMIKO Dhaliwal - [facility] 09/01/2017 15:48:33 11/16/18 87 LEEP completed YUMIKO Dhaliwal - [facility] 09/01/2017 15:54:19 Back Surgery completed Kimmie Roberson MA [place] - [facility] 04/06/2017 14:59:38 Cholecystectomy completed Marielena Choi MD Attn: Accounting, [address] [facility], [place], [address], [place] [facility] 04/06/2017 15:08:25 Tonsillectomy completed Marielena Choi MD Attn: Accounting, [address] [facility], [place], [address], [facility] - [facility] 04/06/2017 15:08:31 Imaging Results None recorded. Procedure Notes None recorded. Medical Equipment None Reported. Allergies Allergen ID Allergen Name Allergen Category Reaction Reaction Severity Criticality Documentation Date Start Date Code Code System Note Provider Name and Address Organization Details Recorded Time 606735 glimepiri de medicatio n rash Not available Not available 09/17/20202019 92554 RxNorm Marielena Choi MD Attn: Marilia dean,[address] [facility], [place], [address], [place] [facility] 4 09:48:07 870870 Jardiance medicatio n nausea Not available Not available 10/01/2020 20980 59 RxNorm Marielena Choi MD Attn: Marilia dean,[address] [facility], [place], [address], [place] [facility] 0 12:58:02 36254 sulfur dioxide medicatio n itching Not available Not available 05/29/2017 48546 79 RxNorm YUMIKO Rojas, [place] - [facility] 7 15:37:59 Medications Name Sig Start Date [...] Not Available levothyro xine 50 mcg tablet Take 1 tablet by mouth once daily 2024 active Not Available Not Available Not Avai lable cephalexi n 500 mg capsule TAKE 1 [...] blood by Pulse oximetry Body temperature Systolic And Diastolic Provider Name and Address Organization Details Last Updated DateTime 5 160.02 cm 38.3 kg/m2 87738.9 5 g 68 /min 96 % 96 % 97.9 [degF] 130/76 mm[Hg] Kimmie Roberson MA [facility] 5 10:09:20 Date Recorded Body height Body mass index (BMI) Body weight Oxygen saturation Oxygen saturation in Arterial blood by Pulse oximetry Heart rate Respiratory rate Body temperature Systolic And Diastolic Provider Name and Address Organization Details Last Updated DateTime 4 160.02 cm 36.8 kg/m2 56266.2 1 g 95 % 95 % 66 /min 16 /min 97.9 [degF] 124/76 mm[Hg] Kimmie Roberson MA [facility] 4 09:36:09 Date Recorded Body height Body mass index (BMI) Body weight Heart rate Respiratory rate Oxygen saturation Oxygen saturation in Arterial blood by Pulse oximetry Systolic And Diastolic Provider Name and Address Organization Details Last Updated DateTime 4 160.02 cm 36.4 kg/m2 82597.5 9 g 64 /min 18 /min 95 % 95 % 136/80 mm[Hg] Kimmie Roberson MA [facility] 4 16:25:30 Date Recorded Body height Body mass index (BMI) Body weight Respiratory rate Heart rate Oxygen saturation Oxygen saturation in Arterial blood by Pulse oximetry Systolic And Diastolic Provider Name and Address Organization Details Last Updated DateTime 4 160.02 cm 37.4 kg/m2 74031.9 9 g 16 /min 60 /min 96 % 96 % 126/80 mm[Hg] Kimmie Roberson MA [facility] 4 09:41:24 Date Recorded Body height Body mass index (BMI) Body weight Heart rate Oxygen saturation Oxygen saturation in Arterial blood by Pulse oximetry Systolic And Diastolic Provider Name and Address Organization Details Last Updated DateTime 3 160.02 cm 36.8 kg/m2 76996.2 1 g 64 /min 95 % 95 % 126/84 mm[Hg] Kimmie Roberson [place] [facility] 3 09:59:09 Social History Question Answer Notes LastModified by Organizat ion Details LastModified Time Tobacco Smoking Status Former Smoker Stopped 2018 Marielena Choi MD Attn: Accounting,[address] [facility], [place], [address], [place] [facility] 05/20/2022 10:11:14 Do You Have An Advance [...] not available 09/01/2017 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 [employer] Information not available 09/01/2017 [...] available 2016 15:00:13 Medical History Condition Response COPD Y High Cholesterol Y Diabetes Y Gynecological History Statement/Question Response Abnormal Pap [...] virus, quadrivalent, preservative 9 completed Not Available [facility] 11/26/2023 07:50:26 COVID-19, mRNA, LNP-S, PF, 100 mcg/0.5mL dose or 50 mcg/0.25mL dose 1 completed Not Available [facility] 11/26/2023 07:50:26 COVID-19 vaccine, vector-nr, rS-Ad26, PF, 0.5 mL 1 completed Not Available [facility] 11/26/2023 07:50:26 Pneumococcal conjugate PCV20, polysaccharide KRP907 conjugate, adjuvant, PF 2 completed Not Available [facility] 11/26/2023 07:50:26 zoster recombinant 2 completed Not Available [facility] 11/26/2023 07:50:26 Influenza, recombinant, quadrivalent, PF 9 completed Not Available [facility] 11/26/2023 07:50:26 COVID-19, mRNA, LNP-S, PF, 30 mcg/0.3 mL dose 2 completed Not Available [facility] 11/26/2023 07:50:26 zoster recombinant 2 completed Not Available [facility] 11/26/2023 07:50:26 Influenza, split virus, quadrivalent, preservative 7 completed Not Available [facility] 12/03/2019 02:47:20 Tdap 7 completed Not Available [facility] 12/03/2019 02:34:25 pneumococcal polysaccharide PPV23 8 completed Not Available [facility] 12/03/2019 02:42:36 Influenza, split virus, quadrivalent, PF 8 completed Not Available [facility] 12/03/2019 02:48:32 Influenza, split virus, quadrivalent, preservative 0 completed Kimmie Roberson [place], [place] [facility] 09/12/2020 13:45:29 Influenza, split virus, quadrivalent, preservative 1 completed YUM[place]KO [place], [place] [facility] 09/02/2021 10:33:23 Influenza, split virus, quadrivalent, preservative 3 completed [place]UM[place] [facility] 11/19/2022 10:46:17 Influenza, split virus, quadrivalent, PF 3 completed Marielena Choi MD Attn: Accounting,[address] [facility], [place], [address], [place] [facility] 10/26/2023 14:13:56 Influenza, split virus, trivalent, preservative 4 completed YUM[place] [facility] 09/19/2024 12:03:13 Past Encounters Encounter ID Performer Location Encounter Start Date Encounter Closed Date Diagnosis/Indication Diagnosis SNOMED-CT Code Diagnosis ICD10 Code Diagnosis Note [id number] Marielena [facility] [address] [place] [phone] 0 04/06/2017 14:29:23 04/06/2017 15:33:11 General examination of patient 973351062 Z00.01 Uncontroll ed type 2 diabetes mellitus 713639009 E11.65 Tobacco de pendence syndrome 59743667 F17.290 She has declined my suggestion that she stops smoking. Screening for malignant neoplasm of breast 201872163 Z12.31 Screening for malignant neoplasm of colon 850528191 Z12.11 Screening for malignant neoplasm of cervix 302691279 Z12.4 History of psychotic disorder 9201953045 6728899 Z86.59 [id number] MD Davina Fernandez (Adult Med) [address] [place] [phone] 0 05/29/2017 15:31:18 05/29/2017 16:32:45 Type 2 diabetes mellitus without complication 681013608 E11.9 Diet controlled , I have reviewed her paper chart and reminded her of the diagnosis that dates back to 2013 at which time her HBA1C was 7.1, it is better now and we would continue a diabetic diet. Disorder o f lipid metabolism 566295844 E78.9 Chronic issue, restart Pravastati n, side effects were discussed Viral screening 25493862 4 Z11.59 Screening for malignant neoplasm of colon 013484815 Z12.11 Colonoscopy declined 042 2375041 62496 Z53.20 Screening for malignant neoplasm of cervix 336381111 Z12.4 Schizophrenia 82357470 F 20.9 He doesn't know what it is, he just put a name out there [id number] MD Davina Fernandez (Adult Med) [address] [place] [address] [phone] 0 08/28/2017 11:29:22 08/28/2017 13:13:53 Administration of influenza vaccine 17168228 Z23 Type 2 sindhu betes mellitus without complication 911028466 E11.9 Diet controlled , labs are overdue Administra tion of diphtheria, pertussis, and tetanus vaccine 359817836 Z23 Nicotine dependence 5629 4008 F17.200 Screening for malignant neoplasm of breast 034791077 Z12.31 Screening for malignant neoplasm of colon 377238916 Z12.11 [id number] MD Davina Mendez (BREAK UP WORKER) [address] [place] [address] [phone] 0 09/01/2017 14:20:01 09/01/2017 16:11:26 Gynecologic examination 29537578 Z01.419 Exposure t o sexually transmissible disorder 153503310 Z20.2 Screening mammography 24 531826 Z12.31 [id number] MD Davina Fernandez (Adult Med) [address] [place] [address] [phone] 0 12/29/2017 11:24:19 12/29/2017 12:15:00 Adult health examination 780141786 Z00.00 Administra tion of pneumococcal vaccine 30347132 Z23 Type 2 sindhu betes mellitus without complication 154508215 E11.9 Diet controlled , labs have been reordered. Breast scr eening declined 256943638 Z53.20 She continues to refuse a screening MMG, I don't want to get that done Ingrowing toenail 102794 009 L60.0 She has refused a referral to the external relations manager Nicotine dependence 5629 4008 F17.200 She is not quite ready to stop [id number] MD Davina Fernandez (Adult Med) [address] [place] [address] [phone] 0 03/29/2018 11:43:36 03/29/2018 12:11:09 Nicotine dependence 50539045 F17.200 She is not quite ready to stop Type 2 sindhu betes mellitus without complication 551879766 E11.9 Diet controlled , labs have been discussed Viral screening 71034400 4 Z11.59 Mammogram declined 93887 5004 Z53.20 RefusedI am not going to do a mammogram, I don't like them Colonoscopy declined 563 5668515 54747 Z53.20 RefusedNo , _ I just don't want to [id number] MD Davina Fernandez (Adult Med) [address] [place] [address] [phone] 0 08/30/2018 11:36:11 08/30/2018 12:33:07 Administration of influenza vaccine 66438191 Z23 Type 2 sindhu betes mellitus without complication 268928052 E11.9 Diet controlled , labs have been discussed Medication monitoring 39 2437718 Z51.81 Mammogram declined 62051 5004 Z53.20 Refused, SBE were encouraged Pulmonary emphysema 8743 3001 J43.9 Noted on her LDCT Colonoscopy declined 619 3647761 82911 Z53.20 Refused Colon canc er screening declined 8129440743 9109 Z53.20 Refused [id number] MD Davina Fernandez (Adult Med) [address] [place] [address] [id number] [id number] 09/15/2018 16:15:07 09/15/2018 22:56:09 Erythrocytosis 899983562 D75.1 Possibly due to her smoking Leukocytosis 304985225 D 72.829 Type 2 sindhu betes mellitus without complication 704135710 E11.9 Diet controlled , labs were discussed Colonoscopy declined 287 3084960 20256 Z53.20 Refused again Mammogram declined 69238 5004 Z53.20 Refused [id number] MD Davina Fernandez (Adult Med) [address] [place] [address] [id number] 0 03/02/2019 16:38:44 03/02/2019 17:08:54 Type 2 diabetes mellitus without complication 322639865 E11.9 Diet controlled , labs were discussed Colon canc er screening declined 9602062184 9109 Z53.20 Refused No History of smoking 16922 94162 9575490 Z87.891 She is not quite ready to stop, No Mammogram declined 41509 5004 Z53.20 Refused No [id number] MD Davina Fernandez (Adult Med) [address] [place] [address] [phone] 0 08/31/2019 09:24:03 08/31/2019 10:03:44 Solitary nodule of lung 798827940 R91.[address] scan of the lung 04/13/19.Martha lee has been seen by the pulmonolog ist as her PET scan was positive and her biopsy is scheduled Screening for malignant neoplasm of colon 145755520 Z12.11 Body mass index 30+ - obesity 557945777 Z68.35 Type 2 sindhu betes mellitus without complication 024371404 E11.9 Diet controlled , labs were discussed Tobacco de pendence in remission 699185369 F17.201 Day 5 Mammogram declined 55216 5004 Z53.20 Refused, SBE were encouraged . Medication monitoring 39 7190223 Z51.81 [id number] MD Davina Fernandez (Adult Med) [address] [place] [address] 14314-985 0 10/28/2019 12:44:14 10/31/2019 09:46:43 Disorder of lipid metabolism 763694585 E78.9 Long-term drug therapy 113583688 Z79.899 Squamous c ell carcinoma of lung 591622171 C34.90 T1 C N0 Mo Stage 1A History of lung lobectomy 6953147918 6264967 Z90.2 [id number] MD Davina Fernandez (Adult Med) [address] [place] [address] [phone] 0 01/02/2020 09:26:04 01/02/2020 09:55:28 Squamous cell carcinoma of lung 175382661 C34.90 T1 C N0 Mo Stage 1A She was encouraged to get her follow up CT scan done in 3 months as ordered by the Oncologist Liver func tion tests outside reference range 979414766 R94.5 Type 2 sindhu betes mellitus without complication 021332597 E11.9 Diet controlled , labs were discussed Mammogram declined 70117 5004 Z53.20 Continues to refused, monthly SBE were encouraged .I don't do those Leukocytosis 404526877 D 72.797 [id number] MD Davina Fernandez (Adult Med) [address] [place] [address] [phone] 0 04/10/2020 09:37:41 04/11/2020 11:02:19 Type 2 diabetes mellitus without complication 136325081 E11.9 Diet controlled , labs were discussed Screening for malignant neoplasm of breast 647936850 Z12.31 Mammogram declined 05012 5004 Z53.20 She continues to refuse, monthly SBE were encouraged . [id number] MD Davina Fernandez (Adult Med) [address] [place] [address] 81861-547 0 07/12/2020 11:42:11 07/13/2020 15:20:23 Uncontrolled type 2 diabetes mellitus 419316262 E11.65 Mammogram declined 15950 5004 Z53.20 She continues to refuse. Steatotic liver disease 312881530 K76.0 Noted on her LDCT Thoracic spondylosis 387 991524 M47.814 Noted on her LDCT [id number] [facility] [address] [place] [address] [phone] 0 09/12/2020 11:26:30 09/12/2020 13:02:42 Administration of influenza vaccine 62206124 Z23 Uncontroll ed type 2 diabetes mellitus 784353560 E11.65 Start Amaryl, side effects were discussedD ietitian to seeA diabetic diet was discussedP t education materials on DM [id number] MD Davina Fernandez (Adult Med) [address] [place] [address] [phone] 0 10/01/2020 08:18:57 10/02/2020 07:35:08 Uncontrolled type 2 diabetes mellitus 728694145 E11.65 Metformin had apparently caused leg swellingUn able to tolerate Amaryl due to a rash.Unabl e to tolerate Jardiance due to nausea.Unw illing to try an injectable Start Semaglutid e, side efects were discussed. She has no personal or FHX of Thyroid cancer. titian to seeEndocri nologist to see although hse is reluctant A diabetic diet was discussedP t education materials on DM [id number] MD Davina Fernandez (Adult Med) [address] [place] [address] [phone] 0 10/22/2020 08:00:02 10/23/2020 09:00:06 Uncontrolled type 2 diabetes mellitus 111344894 E11.65 Metformin had apparently caused leg swellingUn able to tolerate Amaryl due to a rash.Unabl e to tolerate Jardiance due to nausea.Unw illing to try an injectable Continue Semaglutid e 3 mg, then start the 7 mg po daily, side effects were discussed. She has no personal or FHX of Thyroid cancer.End ocrinologi st to see as previously referred. [id number] MD Davina Fernandez (Adult Med) [address] [place] [address] 62887-829 0 12/05/2020 07:50:16 12/06/2020 08:29:18 Type 2 diabetes mellitus without complication 211055217 E11.9 Diet controlled , labs were discussed Mammogram declined 85017 5004 Z53.20 She continues to refuse. [id number] MD Davina Fernandez (Adult Med) [address] [place] [address] [phone] 0 02/25/2021 09:49:36 02/26/2021 07:55:30 Squamous cell carcinoma of lung 996550556 C34.90 T1 C N0 Mo Stage 1A She was encouraged to get her follow up CT scan done in 3 months as ordered by the Oncologist [facility] type 2 diabetes mellitus 499426673 E11.65 Tolerating Metformin Unable to tolerate Amaryl due to a rash. Unable to tolerate Jardiance due to nausea. Endocrinol ogist to see as previously referred. Mammogram declined 06129 5004 Z53.20 She continues to refuse, continue SBE. [id number] MD Davina Fernandez (Adult Med) [address] [place] [address] [phone] 0 09/02/2021 09:18:40 09/03/2021 07:05:16 Administration of influenza vaccine 50018718 Z23 Colonoscopy declined 841 5161911 10400 Z53.20 Refused again on 09/02/2021 Cologuard 2019 Medication monitoring 39 9071619 Z51.81 Ingrowing nail of toe of right foot 1313911976 4023791 L60.0 Disorder o f lipid metabolism 519901661 E78.9 LDL 114 on Pravastati nSwitch to Rosuvastat in Type 2 sindhu betes mellitus without complication 023377489 E11.9 Stable, under the care of the endocrinol ogist HBA1C was 7 Mammogram declined 25410 5004 Z53.20 She continues to refuse, continue SBE. [id number] SHIMON KOENIG (Adult Med) [address] [place] [address] 13666-991 0 12/04/2021 08:34:57 12/05/2021 09:50:37 Gynecologic examination 32385190 Z01.419 Here today for WWELMP: 2003, last [...] will call with results Screening mammography 24 322629 Z12.31 Continues to decline, no breast symptoms today, normal CBE Postmenopa usal bleeding 01781365 N95.0 LMP: 2004Compla ining of intermitte nt vaginal bleeding x 6 months, concerned it may be due to new medication or increase in her medication s- no evidence of vaginal bleeding coming from cervix or vaginal canal on exam- will order pelvic US to rule out other causes including endometria l hyperplasi a Venereal d isease screening 768142766 Z11.3 - nuswab completed in the office today [id number] MD Davina Fernandez (Adult Med) [address] [place] [address] [phone] 0 12/23/2021 09:31:26 12/24/2021 09:55:43 Follow-up visit 568402812 Z09 Type 2 sindhu betes mellitus without complication 410050876 E11.9 Stable, under the care of the endocrinol ogist HBA1C was apparently 7.5 Immunization advised 310 235007 Z71.9 Mammogram declined 85860 5004 Z53.20 She continues to refuse, continue SBE. [id number] SHIMON KOENIG (Peds) [address] [place] [address] 77195-273 0 12/23/2021 10:08:32 12/25/2021 07:32:11 Administration of SARS-CoV-2 mRNA vaccine 6354807838 Z23 [id number] SHIMON CHI (BREAK UP WORKER) [address] [place] [address] 67146-011 0 01/08/2022 12:13:38 01/10/2022 07:14:26 Postmenopausal bleeding 65570702 N95.0 Patient presents after 6 months of irregular spotting. Patient received TVUS on 12-10-21 that showed endometria l thickening at 8.1mm and echogenic focus in lower endometriu m. EMB performed today in office, see procedure note for more details. Will follow up with results. Endometrium thickened 44 2039640 R93.89 Recommende d EMB to rule out endometria l hyperplasi a/malignan cy. See plan above. [id number] MD Davina Fernandez (Adult Med) [address] [place] [address] 83138-424 0 05/20/2022 09:43:42 05/21/2022 15:26:47 Type 2 diabetes mellitus without complication 553337438 E11.9 Stable, under the care of the endocrinol ogist who just started her on Trulicity which she cannot afford. Her HBA1C was 7.9% on 02/25/2022 Body mass index 30+ - obesity 850957868 Z68.35 Squamous c ell carcinoma of lung 030613143 C34.90 T1 C N0 Mo Stage 1A She was encouraged to get her follow up CXR, she says that she has graduated to a plain CXR Mammogram declined 54446 5004 Z53.20 She continues to refuse, continue SBE. [id number] MD Davina Fernandez (Adult Med) [address] [place] [address] 43570-508 0 11/19/2022 09:53:49 11/20/2022 10:11:05 Type 2 diabetes mellitus without complication 334815559 E11.9 Stable, under the care of the endocrinol ogist, Dr Alayna Carosn who wanted her on Trulicity which she cannot afford. Her HBA1C was 7.9% on 02/25/2022 and now 7.8% (09/17/2022 ) Body mass index 30+ - obesity 680061583 Z68.35 Mammogram declined 50900 5004 Z53.20 She continues to refuse, continue SBE. Screening for malignant neoplasm of colon 463286736 Z12.11 Cologuard -ve 09/11/2019 Immunization advised 310 148475 Z71.9 Colonoscopy declined 967 3911753 41145 Z53.20 Refused again on 09/02/2021 Cologuard 2019 Breast can cer screening declined 8222756476 8625286 Z53.20 Overweight 507216133 E66 .3 Administra tion of influenza vaccine 90220398 Z23 [id number] MD Davina Fernandez (Adult Med) [address] [place] [address] 95185-843 0 05/26/2023 10:13:32 05/27/2023 11:39:44 Uncontrolled type 2 diabetes mellitus 169115306 E11.65 Tolerating Metformin Unable to tolerate Amaryl due to a rash. Unable to tolerate Jardiance due to nausea. Endocrinol ogist to see as previously referred. Immunization advised 310 336042 Z71.9 Colonoscopy declined 151 8234789 34337 Z53.20 Refused again on 05/26/20232018 Mammogram declined 36963 5004 Z53.20 She continues to refuse, continue SBE. Screening for malignant neoplasm of colon 161244119 Z12.11 Cologuard -ve 09/11/2019 [id number] MD Davina Fernandez (Adult Med) [address] [place] [address] [phone] 0 10/26/2023 09:36:21 10/27/2023 11:45:12 Administration of influenza vaccine 80803564 Z23 Steatotic liver disease 618129872 K76.0 Noted on her LDCT Type 2 sindhu betes mellitus without complication 034565313 E11.9 Previously under the care of the endocrinol ogist, Dr Alayna Carson who wanted her on Trulicity which she cannot afford. Her HBA1C was 7.9% on 02/25/2022, 7.8% (09/17/2022 ) and now 7.5% ( 3)Unable to afford FarxigaI will add Rybelsus, she has no personal or FHX of Thyroid cancer. Side effects were discussed including but not limited to allergic reactions. Hypothyroidism 51667215 E03.9 [id number] MD Davina Fernandez (Adult Med) [address] [place] [address] 90781-184 0 04/26/2024 09:26:38 04/26/2024 10:17:30 Type 2 diabetes mellitus without complication 746533433 E11.9 Uncontroll ed, HBA1C 8.4% on 01/18/2024Un [...] limited to allergic reactions. Steatotic liver disease 443731087 K76.0 Noted on her LDCTWeight lossGI Hypothyroidism 97356470 E03.9 History of nicotine dependence 1114494075 44132817 Z87.891 Medication monitoring 39 8681749 Z51.81 Breast can cer screening declined 4049614156 1006281 Z53.20 Mammogram declined 85555 5004 Z53.20 She continues to refuse to have a MMG [id number] MD Davina Fernandez (Adult Med) [address] [place] [address] 40546-281 0 05/24/2024 16:04:44 05/25/2024 15:09:14 Type 2 diabetes mellitus without complication 794399262 E11.9 HBA1C 9.1% 05/02/2024 dd Pioglitazo ne [...] including but not limited to allergic reactions. [id number] Marielena Choi MD [facility] ([facility]) [address] [place] [address] 09/19/2024 09:24:43 09/20/2024 14:20:49 Administration of influenza vaccine 24632416 Z23 Type 2 sindhu betes mellitus without complication 075039632 E11.9 Labs 08/17/2024 HBA1C 7.2%Manage d by the endocrinol ogistGlime piride 4 mg po dailyPiogl itazone 15 mg po daily OV 05/24/2024HB A1C 9.1% 05/02/2024 dd Pioglitazo ne 15 mg, side effects were discussed including allergic reactions and edema.Endo crinologis t (Scheduled ) &OV 04/26/2024U ncontadriel espinoza, HBA1C 8.4% on 01/18/2024Un able to afford [...] limited to allergic reactions. Medication monitoring 39 3389681 Z51.81 Acquired hypothyroidism 665928130 E03.9 [id number] Marielena Choi MD [facility] (Adult Med) [address] [place] [address] 02/20/2025 09:56:23 02/21/2025 12:15:16 Body mass index 30+ - obesity 774926973 Z68.35 Type 2 sindhu betes mellitus without complication 941750181 E11.9 Labs 01/18/2025 HBA1C 7.5%She can come [...] not limited to allergic reactions. Acquired hypothyroidism 939267568 E03.9 Health Concerns Section Related Observation LastModified by Organization Cesarai ls LastModified Time None Recorded Concern Status LastModified by Organization Details LastModified Time None Recorded Advance Directives Directive N: Payers Insurance Date Sequence Insurance Name Policy Number Policy Awan Covered Member ID Awan Member ID Guarantor Name 04/26/2024 1 [place] [id number] Dulce Melissa [id number] Dulce Melissa 02/17/2025 [place] Dulce Melissa [id number] Dulce Melissa 02/17/2025 1 [place] Dulce Melissa [id number] Dulce Melissa 02/17/2025 2 [place] [id number] Dulce Melissa [id number] Dulce Melissa 04/26/2024 1 [place] [id number] Dulce Melissa [id number] Dulce Melisas 08/31/2019 SLIDING FEE SCHEDULE - DISCOUNT Dulce Melissa 03/29/2018 1 *SELF PAY* Shimon tonya Melissa 09/19/2024 1 [place] [id number] Dulce Melissa [id number] Dulce Melissa Notes Date Note Type Note Provider Name and Address Organization Details Recorded Time 10/26/2023 text/html Diabetes F/URepo rted bypatient.Labs:last A1C result: 7.5 Ms Melissa returns, she was seen by the warehouse engineer. She apparently has a high deductible and cannot afford injectables, Farxiga samples were provided but she could not afford the medication after she finished the samples. Marielena Choi MD Attn: Accounting[address] [place], [address], [facility] 11/12/2023 10:20:47 04/26/2024 text/html Diabetes F/URepo rted [...] in. Marielena Choi MD Attn: Accounting[address] [place], [address], [facility] 04/26/2024 11:21:25 05/24/2024 text/html Diabetes F/URepo rted [...] it Marielena Choi MD Attn: Accounting[address] [place], [address], [facility] 05/24/2024 16:49:49 09/19/2024 text/html Diabetes F/URepo rted [...] once a dayJust a follow up Ms Melissa is doing well, she was seen by the warehouse engineer Dr Hawthorne and the dose of her Glimepiride was changed to 4 mg once a day Marielena Choi MD Attn: Accounting[address] [place], [address], [facility] 09/19/2024 10:12:09 02/20/2025 text/html Diabetes F/URepo rted [...] not willing to take an injectable. Her warehouse engineer appealed the denial and it was denied again. Marielena Choi MD Attn: Accounting[address] [place], [address], [facility] 02/20/2025 13:33:16 OBGyn Episode No OBEpisode recorded.
[2025-05-25 10:20] LABS: Hematocrit 42.0 % (37.0-47.0); Hemoglobin 13.4 g/dL (12.0-15.0); Mean Corpuscular HGB Conc 31.9 g/dl (32-36); Mean Corpuscular Hemoglobin 28.3 pg (26-34); Mean Corpuscular Volume 88.8 fl (80-100); Platelet Count Result 243 k/mm3 (150-375); Red Blood Count 4.73 M/mm3 (4.2-5.4); White Blood Count 6.7 K/mm3 (4.5-10.0)
== END 2025-05-25 09:49 | disposition home or self-care (01) ==
PROVIDERS: PCP Internal Medicine Infectious Disease; Visit Provider Nurse Practitioner
DX: K76.0 Fatty (change of) liver, not elsewhere classified (principal)
CPT/HCPCS: 36415; 82103; 85027

== ENCOUNTER 2025-08-03 15:33 | Outpatient (CLI) | payer MEDICARE, SELFPAY ==
--- NOTE | 2025-08-03 | ECHO_ITS ---
Patient Info Name: Dulce Melissa Age: 64 years : 1960 Gender: Female Ht: 62 in Wt: 209 lbs BSA: 2.08 m2 HR: 69 bpm BP: 152 / 76 mmHg Heart Rhythm: Sinus Rhythm Technical Quality: Fair Exam Date: 08/03/2025 3:58 PM Patient Status: O Admit Date: 08/03/2025 Exam Type: CA echo doppler color flow Complete two-dimensional, color flow and Doppler transthoracic echocardiogram is performed. Brake Repairer: Loren Fields Attending Provider: Marielena Choi Summary 1. Complete two-dimensional, color flow and Doppler transthoracic echocardiogram is performed. 2. Left ventricular chamber dimension is normal. 3. Left ventricular systolic function is normal, estimated at 65-70. 4. There is mildly increased left ventricular wall thickness. 5. The left ventricular diastolic function is grade I diastolic dysfunction. 6. The mitral valve has thickened leaflets. 7. There is mild mitral valve regurgitation. 8. There is mild tricuspid valve regurgitation. 9. Mild pulmonary hypertension, estimated pulmonary arterial systolic pressure is 42 mmHg. Left Ventricle Left ventricular chamber dimension is normal. Left ventricular systolic function is normal, estimated at 65-70. There is mildly increased left ventricular wall thickness. The left ventricular diastolic function is grade I diastolic dysfunction. Right Ventricle Right ventricular chamber dimension is normal. Right ventricular systolic function is normal. Left Atria Left atrial chamber dimension is normal. Right Atria Right atrial chamber dimension is normal. Atrial Septum Intact interatrial septum visualized by color flow imaging. Aortic Valve The aortic valve is trileaflet. There is mild aortic valve sclerosis. There is no aortic valve stenosis. There is trace aortic valve regurgitation. Pulmonic Valve The pulmonic valve is normal. There is no pulmonic valve stenosis. There is trace pulmonic regurgitation. Mitral Valve The mitral valve has thickened leaflets. There is no mitral valve stenosis. There is mild mitral valve regurgitation. Tricuspid Valve The tricuspid valve leaflets are normal. There is no significant tricuspid valve stenosis. There is mild tricuspid valve regurgitation. Mild pulmonary hypertension, estimated pulmonary arterial systolic pressure is 42 mmHg. Pericardium/Pleural The pericardium appears normal. There is no pericardial effusion. Inferior Vena Cava Normal inferior vena cava with >50% collapse upon inspiration consistent with normal right atrial pressure, 8 mmHg. Aorta The aortic root size at the sinus of Valsalva is normal. Left Ventricular Outflow Tract Name Value Normal LVOT 2D LVOT Diameter 1.9 cm LVOT Doppler LVOT Peak Velocity 134 cm/s LVOT Peak Gradient 7 mmHg LVOT Mean Gradient 4 mmHg LVOT VTI 27 cm LVOT VTI/AV VTI Ratio 0.7 LVOT Stroke Volume 79 ml LVOT CO 15.8 l/min LVOT CI 7.6 l/min/m2 Pulmonic Valve Name Value Normal PV Doppler PV Peak Velocity 96 cm/s PV Peak Gradient 4 mmHg Mitral Valve Name Value Normal MV Diastolic Function MV E Peak Velocity 118 cm/s MV A Peak Velocity 113 cm/s MV E/A 1.0 MV Decel Time (PW) 238 ms MV Annular TDI MV E/e' (Septal) 13.2 MV E/e' (Lateral) 10.4 MV E/e' (Average) 11.8 Tricuspid Valve Name Value Normal TV Regurgitation Doppler TR Peak Velocity 291 cm/s TR Peak Gradient 34 mmHg Estimated PAP/RSVP RA Pressure 8 mmHg <=5 PA Systolic Pressure 42 mmHg <36 RV Systolic Pressure 42 mmHg <36 TV Annular TDI TV Lateral Teresa s' Velocity 10.7 cm/s >=9.5 Aorta Name Value Normal Ascending Aorta Ao Root Diameter (MM) 2.3 cm Ao Root Diam Index (MM) 1.1 cm/m2 Aortic Valve Name Value Normal AV Doppler AV Peak Velocity 154 cm/s AV Peak Gradient 9 mmHg AV Mean Gradient 5 mmHg AV VTI 38 cm AV Area (Cont Eq VTI) 2.1 cm2 >=3.0 AV Area (Cont Eq Gopal) 2.6 cm2 AV DI (Gopal) 0.87 AV Regurgitation 2D LVOT Area 3.0 cm2 Ventricles Name Value Normal LV Dimensions 2D/MM IVS Diastolic Thickness (2D) 1.1 cm 0.6-1.0 LVID Diastole (2D) 4.4 cm 3.8-5.2 LVIW Diastolic Thickness (2D) 1.0 cm 0.6-0.9 LVID Systole (2D) 2.5 cm 2.2-3.5 LVOT Diameter 1.9 cm LV Mass (2D Cubed) 157.29 g 67.00-162.00 LV Mass Index (2D Cubed) 75 g/m2 43-95 Relative Wall Thickness (2D) 0.47 <=0.42 LV Fractional Shortening/Ejection Fraction 2D/MM LV Fractional Shortening (2D) 44 % 27-45 LV EF (2D Teichalonaz) 75 % LV Diastolic Volume (4C MOD) 108 ml LV EF (4C MOD) 69 % LV Diastolic Volume (2C MOD) 110 ml LV EF (2C MOD) 68 % LV Diastolic Volume (BP MOD) 114 ml 46-106 LV Diastolic Volume Index (BP MOD) 55 ml/m2 29-61 LV Systolic Volume (BP MOD) 35 ml 14-42 LV Systolic Volume Index (BP MOD) 17 ml/m2 8-24 LV EF (BP MOD) 70 % 54-74 LV Diastolic Length (4C) 8.3 cm LV Systolic Length (4C) 6.8 cm LV Stroke Volume (4C MOD) 74 ml Atria Name Value Normal LA Dimensions LA Dimension (MM) 3.2 cm 2.7-3.8 LA Volume (4C A-L) 62 ml LA Volume (BP A-L) 53 ml RA Dimensions RA Area (4C) 13.6 cm2 <=18.0 Report Signatures
--- OUTSIDE RECORDS SUMMARY | 2025-08-03 15:37 | XMS_ITS | Clinical Summary ---
Author Organization [facility] Address [address] [place] [address] Care Team Providers Care Gathering Worker Name Role Phone Bruce Diaz MD Unavailable [phone] Marielena Choi MD Primary Care Provider [...] mouth daily Active glimepiride (AMARYL) 4 mg tabletIndicatio ns:type 2 diabetes mellitus Take 1 tablet (4 mg total) by mouth daily before breakfast 90 tablet 2 4 Active metFORMIN (GLUCOPHAGE) 500 mg tablet Take 2 tablets (1,000 mg total) by mouth daily with breakfast 180 tablet 2 4 Active pioglitazone (ACTOS) 15 mg tablet Take 1 tablet by mouth once daily 180 tablet 5 Active levothyroxine (SYNTHROID) 50 mcg tablet Take 1 tablet (50 mcg total) by mouth daily Active OLANZapine (ZyPREXA) 5 mg tablet Take 1 tablet (5 mg total) by mouth nightly 5 Active tirzepatide (Mounjaro) 7.5 mg/0.5 mL pen injector injection Inject 0.5 mL (7.5 mg total) under the skin every 7 days 2 mL 5 Active Active Problems Problem Noted Date [...] PM CDT Office Visit [facility] [address] [address] Trish Rubi PA Type 2 diabetes mellitus with hyperglycemia, without long-term current use of insulin (HCC) (Primary Dx); Hyperlipidemia associated with type 2 diabetes mellitus (HCC); Severe obesity (HCC) from Last 3 Months Surgical History Surgery Date Site/Laterality Comments CHOLECYSTECTOMY BACK SURGERY Medical History Medical History Date Comments Diabetes mellitus (HCC) Hypercholesteremia Schizophrenia in remission (HCC) With Lung cancer (HCC) History of lobectomy of lung 2018 Family History Medical History Relation Name Comments Diabetes Father Diabetes type II Mother Diabetes Sister Relation Name Status Comments Father Mother Sister Social History Tobacco Use Types Packs/Day Years Used Date Smoking Tobacco: Former Cigarettes 1 55.7 S tarted: 1970 Smokeless Tobacco: Never Tobacco [...] on file Legal Sex Female 7:24 PM LASER BEAM CUTTER Gender Identity Not on file Sexual Orientation [...] Eye Exam 1960 Hepatitis B Screening 1977 Well Visit 65+ 2024 Fall Risk Assessment 07/12/2025 07/12/2024 Covid-19 Vaccine (2024-2 6 season) 2025 12/23/2021, 01/20/2021, 01/19/2021 Influenza Vaccine (#1) 2025 , 10/26/2023, 11/19/2022, [...] CREATININE RATIO, URINE Routine 01/18/2025 12:00 AM LASER BEAM CUTTER Type 2 diabetes mellitus with hyperglycemia, without long-term current use of insulin (HCC) BASIC METABOLIC PANEL Routine 01/16/2025 10:20 AM LASER BEAM CUTTER LIPID PANEL Routine 01/16/2025 10:20 AM LASER BEAM CUTTER from Last 3 Months or Most Recently Relevant to Health Maintenance Results * POCT hemoglobin A1c (05/22/2025 1:15 PM CDT) Hemoglobin A1C, POC 5.6 4.0 - 5.6 % Capillary blood 05/22/2025 1 :15 PM CDT Trish DISLA POINT OF CARE TEST ORDE RABLES Final Result * (ABNORMAL) POCT glucose (05/22/2025 1:15 PM CDT) Glucose Blood, POC 101 Normal Fasting 70 - 100, Random <200 mg/dL Comment:PPG 20 Minutes Blood 05/22/2025 1:15 PM CDT Trish DISLA POINT OF CARE TEST ORDE RABLES Final Result * Albumin Creatinine Ratio, Urine (01/18/2025 12:00 AM LASER BEAM CUTTER) Albumin Ur 15.5 mg/L Comment: Interpretive Data No reference range established. Current interpretive data was last revised 2019. Creatinine Ur 69.2 mg/dL [facility] Comment: Interpretive Data No reference range established. Current interpretive data was last revised 2019. Albumin Creatinine Ratio, Ur 22 1 - 29 mg/g SAMANTHA Urine 01/18/2025 01/18/2025 1:0 4 PM LASER BEAM CUTTER Zayda Hawthorne MD LAB URINE ORDERABLES Final Resul t SAMANTHA MENDEZ [address] Department [place] [address] * (ABNORMAL) Lipid panel (01/16/2025 10:20 AM LASER BEAM CUTTER) SCRIBED Cholesterol, Total 144 100 - 199 [facility] SCRIBED HDL 52(A) > - 39 [facility] SCRIBED LDL 72 0 - 99 [facility] SCRIBED Triglycerides 109 0 - 149 [facility] Blood 01/16/2025 10:2 0 AM LASER BEAM CUTTER Marielena Choi MD LAB BLOOD ORDERABLES Fi nal Result [facility] * (ABNORMAL) Basic metabolic panel (01/16/2025 10:20 AM LASER BEAM CUTTER) SCRIBED Sodium 144 134 - 144 mmol/L [facility] SCRIBED Potassium 4.6 3.5 - 5.2 mmol/L [facility] SCRIBED Chloride 106 96 - 106 mmol/L [facility] SCRIBED Carbon Dioxide 23 20 - 29 mmol/L [facility] SCRIBED Urea Nitrogen (BUN) 13 8 - 27 mg/dl [facility] SCRIBED Creatinine 0.51(A) 0.57 - 1.00 mg/dl [facility] SCRIBED Glucose 156(A) 70 - 99 mg/dl [facility] SCRIBED eGFR 104(A) 0 - 59 [facility] Blood 01/16/2025 10:2 0 AM LASER BEAM CUTTER Marielena Choi MD LAB BLOOD ORDERABLES Ed ited Result - Final [facility] from Last 3 Months or Most Recently Relevant to Health Maintenance Insurance [employer] PREFERRED MEDICARE [facility] MEDICARE SUPPLEMENT Care Teams Gathering Worker Relationship Specialty Start Date End Date Marielena Choi MD [address] [address] PCP - General Internal Medicine 10/13/18 Bruce Diaz MD Medical Oncologist/Target Network Analyst Hematology and Oncology 10/12/18
--- OUTSIDE RECORDS SUMMARY | 2025-08-03 15:37 | XMS_ITS | Clinical Summary ---
Author Organization [facility] [place] dahl Aleena Address [address] [place] [address] Care Team Providers Care Business Proposal Rep Name Role Phone Marielena Choi MD Primary Care Provider [phone] Allergies Active Allergy Reactions Criticality Noted Date [...] Encounters Date Type Department Care Team Description 08/01/2025 External Device Data STL ABSTRACTION Provider, Abstract 07/18/2025 External Device Data STL ABSTRACTION Provider, Abstract 07/18/2025 External Device Data [facility] ABSTRACTION Provider, Abstract 07/05/2025 External Device Data [facility] ABSTRACTION Provider, Abstract 06/20/2025 External Device Data [facility] ABSTRACTION Provider, Abstract 05/31/2025 External Device Data [facility] ABSTRACTION Provider, Abstract 05/30/2025 External Device Data [facility] ABSTRACTION Provider, Abstract [...] Comments Blood Pressure 138/73 10/19/2024 10:42 AM PHARMACY PICKING TECHNICIAN Pulse 62 10/19/2024 10:42 AM PHARMACY PICKING TECHNICIAN Temperature 36.7 C (98 F) 10/19/2024 10:42 AM PHARMACY PICKING TECHNICIAN Respiratory Rate 18 10/19/2024 10:42 AM PHARMACY PICKING TECHNICIAN Oxygen Saturation 95% 10/19/2024 10:42 AM PHARMACY PICKING TECHNICIAN Inhaled Oxygen Concentration - - Weight 96.6 kg (213 lb) 10/19/2024 10:42 AM PHARMACY PICKING TECHNICIAN Height 157.5 cm (5' 2) 05/26/2022 9:59 AM CDT Body Mass Index 38.96 05/26/2022 9:59 AM CDT Plan of Treatment Upcoming Encounters Date Type Department Care Team (Late st Contact Info) Description 10/23/2025 10:00 AM PHARMACY PICKING TECHNICIAN Office Visit [facility] Oncology and Hematology - Vin [address] [place] [phone] Rasta Fitzgerald MD [address] [facility] [address] [place] [phone] Health Maintenance Due Date Last Done Comments DIABETES ANNUAL FOOT EXAM 1977 DIABETES ANNUAL RETINAL EXAM 1977 DIABETES MICROALBUMIN ANNUAL SCREEN 1977 LDL CHOLESTEROL ANNUAL 1977 BREAST CANCER SCREENING 1999 COLORECTAL SCREENING 2004 Colorectal Cancer Screening 2004 FIT-DNA Q 3 years 2004 FIT/FOBT Q 1 year 2004 Flex Sig/CT Colonography Q 5 years 2004 OSTEOPOROSIS SCREENING 2024 INFLUENZA VACCINE (#1) 2025 , 10/26/2023, 11/19/2022, Additional history exists COVID-19 Vaccine (2024-2 6 season) 2025 12/23/2021, 01/20/2021, 01/19/2021 DIABETES HBA1C Q 6 MONTHS 07/21/20252024, 01/16/2025, 07/12/2024, Additional history exists DTAP/TDAP/TD VACCINES (2 - T d or Tdap) 08/28/2027 08/28/2017 RSV VACCINE (60+ or ) (1 - 1-dose 75+ series) 2034 PNEUMOCOCCAL VACCINE 50+ YEARS Completed 02/18/2022 , 12/29/2017 ZOSTER VACCINE Completed 05/26/2022, 02/18/2022 Medical Devices Implanted Type Area Painter And Decorator Apprentice Device Identifier Shelf Expiration Date Model / Serial / Lot Sealant Progel Pleural 4ml [id number] - [id number] Implanted:Qty : 1 on 10/10/2019 by Алкесандр Garcia MD at [facility] Tissue Right: Lung [employer] [id number] 01/24/2021 [id number] / / [id number] Procedures Procedure Name Priority Date/Time Associated Diagnosis Comments HEMOGLOBIN A1C Routine 09/28/2019 2:11 PM PHARMACY PICKING TECHNICIAN from Last 3 Months or Most Recently Relevant to Health Maintenance Results * (ABNORMAL) HEMOGLOBIN A1C (09/28/2019 2:11 PM PHARMACY PICKING TECHNICIAN) HEMOGLOBIN A1C 6.3(H) <5.7 % 09/28/2019 5:01 PM [facility] EST. AVG GLUCOSE, A1C 134 mg/dL 09/28/2019 5:01 PM [facility] Blood Venipuncture / Unknown 09/28/2019 2:11 PM PHARMACY PICKING TECHNICIAN 09/28/2019 3:39 PM PHARMACY PICKING TECHNICIAN Narrative [facility] - 09/28/2019 5:01 PM PHARMACY PICKING TECHNICIAN HGB A1C INTERPRETATION NORMAL: <5.7% PRE-DIABETES: 5.7 - 6.4% DIABETES: 6.5% OR GREATER us Kell Delgado [facility] CHEMISTRY ORDERABLES Nivai l Result [facility] CLIA# [id number] [address] [place] [address] from Last 3 Months or Most Recently Relevant to Health Maintenance Insurance MEDICARE PART A AND B BCBS SUPP Advance Directives For more information, please contact: [phone] * Full Code (Latest Code Status on File) Date Activated Date Inactivated Comments 10/10/2019 6:31 PM 10/12/2019 6:11 PM * Full Code Date Activated Date Inactivated Comments 10/10/2019 10:16 AM 10/10/2019 6:31 PM * Full Code Date Activated Date Inactivated Comments 10/10/2019 10:04 AM 10/10/2019 10:16 AM Care Teams Business Proposal Rep Relationship Specialty [place] [address] [place] [phone] PCP - General Internal Medicine 09/28/19
--- OUTSIDE RECORDS SUMMARY | 2025-08-03 15:37 | XMS_ITS | Encounter Summary ---
Author Organization [facility] Address [address] [place] [address] Care Team Providers Care Metal Buildings Assembler Name Role Phone Marielena Choi MD Primary Care Provider [phone] Encounter Details Date Type Department Care Team (Late Contact Info) Description 08/01/2025 External Device Data [facility] ABSTRACTION Provider, Abstract NO ADDRESS ON FILE Social History Tobacco Use Types Packs/Day Years Used Date Smoking Tobacco: Former Cigarettes 1 30 1 - 09/06/2019 Smokeless Tobacco: Never Alcohol Use Standard Drinks/Week Comments Never 0 (1 standard drink = 0.6 oz pur e alcohol) Comments No Sex and Gender Information Value Date Recorded Sex Assigned at Not on file Legal Sex Female 11:11 AM CDT Gender Identity Not on file Sexual Orientation Not on file documented as of this encounter Plan of Treatment Upcoming Encounters Date Type Department Care Team (Late st Contact Info) Description 10/23/2025 10:00 AM FITNESS SALES CONSULTANT Office Visit [facility] Oncology and Hematology - Vin [address] [facility] [address] [place] [address] Rasta Fitzgerald MD [address] [facility] [address] [place] [address] documented as of this encounter Visit Diagnoses Not on filedocumented in this encounter Care Teams Metal Buildings Assembler Relationship Specialty Start [place] [address] [place] [phone] PCP - General Internal Medicine 09/28/19 documented as of this encounter
== END 2025-08-03 15:34 | disposition home or self-care (01) ==
LOC: ANHCARD 15:35
PROVIDERS: PCP Internal Medicine Infectious Disease; Visit Provider Internal Medicine Infectious Disease
DX: I08.3 Combined rheumatic disorders of mitral, aortic and tricuspid valves (principal)
CPT/HCPCS: 93306

== ENCOUNTER 2025-10-16 13:05 | Outpatient (CLI) | payer MEDICARE, SELFPAY ==
--- NOTE | ~2025-10-16 | CT_ITS ---
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 TECHNIQUE: Axial images of the chest were obtained without infusion of intravenous contrast. Dose optimization technique was utilized. FINDINGS: The examination demonstrates no new pulmonary nodules, infiltrates and/or effusions. Status post right lobectomy. Cardiac size and mediastinal configuration are normal in appearance. Enlarged right paratracheal lymph node measures up to 1.3 x 1.8 cm decreased from previous measurement of 1.9 x 1.2 cm. Right precarinal lymph nodes are decreased in size measuring up to 2.1 x 1.2 cm previously measured up to 2.5 x 1.5 cm. The thoracic aorta is normal in caliber. Osseous structures are intact. There is fatty infiltration of the liver. IMPRESSION: No acute cardiopulmonary process. Decrease in mediastinal lymphadenopathy. All CT scans at this facility are performed using low dose modulation techniques as appropriate to perform exam including the following: automated exposure control; use of iterative reconstruction technique; adjustment of the mA and/or kV according to patient size (this includes techniques or standardized protocols for targeted exams where dose is matched to indication/reason for exam). Reviewed, dictated and finalized at location S. [facility] TE[facility] IMPRESSION: No acute cardiopulmonary process. Decrease in mediastinal lymphadenopathy. All CT scans at this facility are performed using low dose modulation techniqu es as appropriate to perform exam including the following: automated exposure c ontrol; use of iterative reconstruction technique; adjustment of the mA and/or kV according to patient size (this includes techniques or standardized protocol s for targeted exams where dose is matched to indication/reason for exam).
[2025-10-16 13:34] LABS: Estimated Glomerular Filt Rate > 60
--- OUTSIDE RECORDS SUMMARY | 2025-10-16 14:13 | XMS_ITS | Clinical Summary ---
Author Organization [facility] Address [address] [place] [address] Care Team Providers Care Route Service Representative Name Role Phone Bruce Diaz MD Unavailable [phone] Marielena Choi MD Primary Care Provider [...] (20 mg total) by mouth daily Active metFORMIN (GLUCOPHAGE) 500 mg tablet Take 2 tablets (1,000 mg total) by mouth daily with breakfast 180 tablet 2 07/12/20 24 Active levothyroxine (SYNTHROID) 50 mcg tablet Take 1 tablet (50 mcg total) by mouth daily Active OLANZapine (ZyPREXA) 5 mg tablet Take 1 tablet (5 mg total) by mouth nightly 05/08/20 25 Active cyanocobalamin (Vitamin B-12) 500 mcg tabletIndicati ons:Prevention of Vitamin B12 Deficiency Take 1 tablet (500 mcg total) by mouth daily Active calcium carbonate-kunal min D3 1,250 mg (500 mg elemental)-400 unit tablet Take by mouth Acti ve vitamin E 400 unit capsule Take 1 capsule (400 Units total) by mouth Active omega-3 fatty acids-fish oil 300-1,000 mg capsule Take 2 capsules (2 g total) by mouth daily Active tirzepatide (Mounjaro) 10 mg/0.5 mL pen injector injection Inject 0.5 mL (10 mg total) under the skin every 7 days 2 mL 6 09/28/20 25 Active glimepiride (AMARYL) 4 mg tabletIndicati ons:type 2 diabetes mellitus Take 1 tablet (4 mg total) by mouth daily before breakfast 90 tablet 2 07/12/20 24 025 Discontinued(Al ternate therapy) pioglitazone (ACTOS) 15 mg tablet Take 1 tablet by mouth once daily 180 tablet 05/15/20 25 025 Discontinued tirzepatide (Mounjaro) 7.5 mg/0.5 mL pen injector injection Inject 0.5 mL (7.5 mg total) under the skin every 7 days 2 mL 5 05/22/20 25 025 Discontinued Active Problems Problem Noted Date Diagnosed Date Severe obesity 05/22/2025 Assessment & Plan (09/28/2025 1:26 PM POWER PLANT OPERATIONS MANAGER): Chronic problem, improving. Increase Mounjaro. Assessment & Plan (05/22/2025 2:03 PM CDT): Increase Mounjaro. Hyperlipidemia associated with type 2 diabetes stefan howard 01/18/2025 Assessment & Plan (09/28/2025 1:15 PM POWER PLANT OPERATIONS MANAGER): Chronic problem. On statin therapy, no changes. Assessment & Plan (05/22/2025 1:48 PM CDT): Chronic problem. On statin therapy, no changes. Type 2 diabetes mellitus wit h hyperglycemia, without long-term current use of insulin 07/12/2024 Assessment & Plan (09/28/2025 1:25 PM POWER PLANT OPERATIONS MANAGER): Chronic problem, at goal per A1c. But goal is still weight loss. So will try stopping Actos, and increase Mounjaro to 10 mg weekly. She'll call in a couple months if tolerating well and we can increase to 15 mg dose. Assessment & Plan (05/22/2025 2:04 PM CDT): [...] Encounters Date Type Department Care Team Description 09/28/2025 1:00 PM POWER PLANT OPERATIONS MANAGER Office Visit [facility] [address] [address] Trish Rubi PA Type 2 diabetes mellitus with hyperglycemia, without long-term current use of insulin (HCC) (Primary Dx); Hyperlipidemia associated with type 2 diabetes mellitus (HCC); Severe obesity (HCC) 09/28/2025 Telephone [facility] [address] [address] Trish Rubi PA DM Eye Exam Request 08/23/2025 Telephone [facility] [address] [place] [address] Zayda Hawthorne MD Diabetic Eye Exam from Last 3 Months Surgical History Surgery Date Site/Laterality Comments CHOLECYSTECTOMY BACK SURGERY Medical History Medical History Date Comments Diabetes mellitus Hypercholesteremia Schizophrenia in remission (HCC) With Lung cancer (HCC) History of lobectomy of lung 2019 Family History Medical History Relation Name Comments Diabetes Father Diabetes type II Mother Diabetes Sister Relation Name Status Comments Father Mother Sister Social History Tobacco Use Types Packs/Day Years Used Date Smoking Tobacco: Former Cigarettes 1 55.9 S tarted: 1970 Smokeless Tobacco: Never Tobacco [...] on file Legal Sex Female 7:24 PM POWER PLANT OPERATIONS MANAGER Gender Identity Not on file Sexual Orientation Straight 07/12/2024 9: 57 AM CDT Last Filed Vital Signs Vital Sign Reading Time Taken Comments Blood Pressure 137/77 09/28/2025 1:03 PM POWER PLANT OPERATIONS MANAGER Pulse 79 09/28/2025 1:03 PM POWER PLANT OPERATIONS MANAGER Temperature 36.7 C (98.1 F) 04/27/2019 2:57 PM CDT Respiratory Rate 18 05/22/2025 1:10 PM CDT Oxygen Saturation 97% 04/27/2019 2:57 PM CDT Inhaled Oxygen Concentration - - Weight 94.5 kg (208 lb 6.4 oz) 09/28/2025 1:03 P M POWER PLANT OPERATIONS MANAGER Height 157.5 cm (5' 2) 05/22/2025 1:10 PM CDT Body Mass Index 38.12 05/22/2025 1:10 PM CDT Plan of Treatment Health Maintenance Due Date Last Done Comments Breast Cancer Screening-Mammogram 1959 Colon Cancer Screening-Colonoscopy 1959 Hepatitis C Screening 1959 Osteoporosis Screening-Bone Density Scan 1959 Dilated Eye Exam 1959 Hepatitis B Screening 1977 Well Visit 65+ 2024 Fall Risk Assessment 07/12/2025 07/12/2024 Covid-19 Vaccine (4 - 2024-2 6 season) 2025 12/23/2021, 01/20/2021, 01/19/2021 Influenza Vaccine (#1) 2025 4, 10/26/2023, 11/19/2022, Additional history exists Lipid Panel 01/16/2026 01/16/2025, 05/02/2024 eGFR 01/16/2026 01/16/2025, 05/02/2024 Albumin Creatinine Ratio, Urine 01/18/2026 Depression Screening 01/18/2026 01/18/2025, 07/12/20 24 Hemoglobin A1C 03/28/2026 09/28/2025, 07/0 05/2025, 01/18/2025, Additional history exists Foot Exam 05/22/2026 05/22/2025 DTaP/Tdap/Td Vaccine (2 - Td or Tdap) 08/28/2027 08/28/2017 Pneumococcal vaccine 65+ Completed 02/18/2022, 12/17 Zoster Vaccine Completed 05/26/2022, 02/18/2022 Procedures Procedure Name Priority Date/Time Associated Diagnosis Comments POCT GLUCOSE Routine 09/28/2025 1:20 AM POWER PLANT OPERATIONS MANAGER Type 2 diabetes mellitus with hyperglycemia, without long-term current use of insulin (HCC) POCT HEMOGLOBIN A1C Routine 09/28/2025 1 :20 AM POWER PLANT OPERATIONS MANAGER Type 2 diabetes mellitus with hyperglycemia, without long-term current use of insulin (HCC) ALBUMIN CREATININE RATIO, URINE Routine 01/18/2025 12:00 AM POWER PLANT OPERATIONS MANAGER Type 2 diabetes mellitus with hyperglycemia, without long-term current use of insulin (HCC) BASIC METABOLIC PANEL Routine 01/16/2025 10:20 AM POWER PLANT OPERATIONS MANAGER LIPID PANEL Routine 01/16/2025 10:20 AM POWER PLANT OPERATIONS MANAGER from Last 3 Months or Most Recently Relevant to Health Maintenance Results * POCT hemoglobin A1c (09/28/2025 1:20 AM POWER PLANT OPERATIONS MANAGER) [facility] Hemoglobin A1C, POC 5.6 4.0 - 5.6 % Blood 09/28/2025 1:2 0 AM POWER PLANT OPERATIONS MANAGER Trish DISLA POINT OF CARE TEST ORDE RABLES Final Result * POCT glucose (09/28/2025 1:20 AM POWER PLANT OPERATIONS MANAGER) [facility] Glucose Blood, POC 94 Normal Fasting 70 - 100, Random <200 mg/dL Blood 09/28/2025 1:20 AM POWER PLANT OPERATIONS MANAGER Trish DISLA POINT OF CARE TEST ORDE RABLES Final Result * Albumin Creatinine Ratio, Urine (01/18/2025 12:00 AM POWER PLANT OPERATIONS MANAGER) [facility] Albumin Ur 15.5 mg/L Comment: Interpretive Data No reference range established. Current interpretive data was last revised 2019. Creatinine Ur 69.2 mg/dL [facility] Comment: Interpretive Data No reference range established. Current interpretive data was last revised 2019. Albumin Creatinine Ratio, Ur 22 1 - 29 mg/g SAMANTHA Urine 01/18/2025 01/18/2025 1:0 4 PM POWER PLANT OPERATIONS MANAGER Zayda Hawthorne MD LAB URINE ORDERABLES Final Resul t SAMANTHA MENDEZ [address] [address] Department [place] [address] * (ABNORMAL) Lipid panel (01/16/2025 10:20 AM POWER PLANT OPERATIONS MANAGER) [facility] SCRIBED Cholesterol, Total 144 100 - 199 [facility] SCRIBED HDL 52(A) > - 39 [facility] SCRIBED LDL 72 0 - 99 [facility] SCRIBED Triglycerides 109 0 - 149 [facility] Blood 01/16/2025 10:2 0 AM POWER PLANT OPERATIONS MANAGER Marielena Choi MD LAB BLOOD ORDERABLES Fi nal Result [facility] * (ABNORMAL) Basic metabolic panel (01/16/2025 10:20 AM POWER PLANT OPERATIONS MANAGER) SCRIBED Sodium 144 134 - 144 mmol/L [...] 59 [facility] Blood 01/16/2025 10:2 0 AM POWER PLANT OPERATIONS MANAGER Marielena Choi MD LAB BLOOD ORDERABLES Ed ited Result - Final [facility] from Last 3 Months or Most Recently Relevant to Health Maintenance Insurance [employer]ED MEDICARE [facility] MEDICARE SUPPLEMENT Care Teams Route Service Representative Relationship Specialty Start Date End Date Marielena Choi MD [address] [place] [id number] PCP - General Internal Medicine 10/13/18 Bruce Diaz MD Medical Oncologist/Ironer Or Presser Hematology and Oncology 10/12/18
--- OUTSIDE RECORDS SUMMARY | 2025-10-16 14:13 | XMS_ITS | Clinical Summary ---
Author Organization [facility] Address [address] [place] [address] Care Team Providers Care Hunter Name Role Phone Marielena Choi MD Primary Care Provider [phone] Allergies Active Allergy Reactions Criticality Noted Date [...] Encounters Date Type Department Care Team Description 09/19/2025 External Device Data ST[facility] ABSTRACTION Provider, Abstract 08/08/2025 External Device Data [facility] ABSTRACTION Provider, Abstract 08/01/2025 External Device Data [facility] ABSTRACTION Provider, [...] Comments Blood Pressure 138/73 10/19/2024 10:42 AM FRONT OFFICE AGENT Pulse 62 10/19/2024 10:42 AM FRONT OFFICE AGENT Temperature 36.7 C (98 F) 10/19/2024 10:42 AM FRONT OFFICE AGENT Respiratory Rate 18 10/19/2024 10:42 AM FRONT OFFICE AGENT Oxygen Saturation 95% 10/19/2024 10:42 AM FRONT OFFICE AGENT Inhaled Oxygen Concentration - - Weight 96.6 kg (213 lb) 10/19/2024 10:42 AM FRONT OFFICE AGENT Height 157.5 cm (5' 2) 05/26/2022 9:59 AM CDT Body Mass Index 38.96 05/26/2022 9:59 AM CDT Plan of Treatment Upcoming Encounters Date Type Department Care Team (Late st Contact Info) Description 10/23/2025 10:00 AM FRONT OFFICE AGENT Office Visit [facility] Oncology and Hematology - [place] [address] [place] [address] Rasta Fitzgerald MD [address] [place] [address] Health Maintenance Due Date Last [...] 01/20/2021, 01/19/2021 DIABETES HBA1C Q 6 MONTHS 11/22/20252024, 01/18/2025, 01/16/2025, Additional history exists DTAP/TDAP/TD VACCINES (2 - T d or Tdap) 08/28/2027 08/28/2017 RSV VACCINE (60+ or ) (1 - 1-dose 75+ series) 2034 PNEUMOCOCCAL VACCINE 50+ YEARS Completed 02/18/2022 , 12/29/2017 ZOSTER VACCINE Completed 05/26/2022, 02/18/2022 Medical Devices Implanted Type Area Lime Vat Tender Device Identifier Shelf Expiration Date Model / Serial / Lot Sealant Progel Pleural 4ml [id number] - [id number] Implanted:Qty : 1 on 10/10/2019 by Александр Garcia MD at [facility] Tissue Right: Lung [employer] [id number] 01/24/2021 [id number] / / [id number] Procedures Procedure Name Priority Date/Time Associated Diagnosis Comments HEMOGLOBIN A1C Routine 09/28/2019 2:11 PM FRONT OFFICE AGENT from Last 3 Months or Most Recently Relevant to Health Maintenance Results * (ABNORMAL) HEMOGLOBIN A1C (09/28/2019 2:11 PM FRONT OFFICE AGENT) HEMOGLOBIN A1C 6.3(H) <5.7 % 09/28/2019 5:01 PM FRONT OFFICE AGENT [facility] EST. AVG GLUCOSE, A1C 134 mg/dL 09/28/2019 5:01 PM [facility] Blood Venipuncture / Unknown 09/28/2019 2:11 PM FRONT OFFICE AGENT 09/28/2019 3:39 PM FRONT OFFICE AGENT Narrative [facility] - 09/28/2019 5:01 PM FRONT OFFICE AGENT HGB A1C INTERPRETATION NORMAL: <5.7% PRE-DIABETES: 5.7 - 6.4% DIABETES: 6.5% OR GREATER us Kell Delgado [facility] CHEMISTRY ORDERABLES Nivia luda Result [facility] CLIA# [id number] [address] [place] [id number] from Last 3 Months or Most Recently Relevant to Health Maintenance Insurance MEDICARE PART A AND B BCBS SUPP Advance Directives For more information, please contact: [phone] * Full Code (Latest Code Status on File) Date Activated Date Inactivated Comments 10/10/2019 6:31 PM 10/12/2019 6:11 PM * Full Code Date Activated Date Inactivated Comments 10/10/2019 10:16 AM 10/10/2019 6:31 PM * Full Code Date Activated Date Inactivated Comments 10/10/2019 10:04 AM 10/10/2019 10:16 AM Care Teams Hunter Relationship Specialty [place] [address] [place] [id number] PCP - General Internal Medicine 09/28/19
== END 2025-10-16 13:06 | disposition home or self-care (01) ==
PROVIDERS: PCP Internal Medicine Infectious Disease; Visit Provider Internal Medicine Hematology & Oncology
DX: C34.11 Malignant neoplasm of upper lobe, right bronchus or lung (principal)
CPT/HCPCS: 71260; Q9967

== ENCOUNTER 2025-10-23 09:43 | Outpatient (CLI) | payer MEDICARE, SELFPAY ==
[2025-10-23 10:30] LABS: Hematocrit 42.5 % (37.0-47.0); Hemoglobin 13.8 g/dL (12.0-15.0); Immature Granulocyte Percent A 0.0 % (0-0.5); Lymphocytes Absolute Auto 2.30 K/mm3 (0.9-3.2); Mean Corpuscular HGB Conc 32.5 g/dl (32-36); Mean Corpuscular Hemoglobin 28.8 pg (26-34); Mean Corpuscular Volume 88.5 fl (80-100); Nucleated Red Blood Cells Absolute Auto 0.000 K/mm3 (0.0-0.012); Nucleated Red Blood Cells Perc 0.0 % (0.0-0.2); Platelet Count Result 245 k/mm3 (150-375); Red Blood Count 4.80 M/mm3 (4.2-5.4); White Blood Count 7.8 K/mm3 (4.5-10.0)
[2025-10-23 10:34] LABS: Blood Urea Nitrogen 18 mg/dL (8-26); Carbon Dioxide 27 mmol/L (22-30); Chloride 103 mmol/L (98-109); Estimated Glomerular Filt Rate > 60; Glucose 113 mg/dL (70-105); Ionized Calcium (POC) 1.28 mmol/L (1.11-1.31); Potassium 4.5 mmol/L (3.5-4.9); Sodium 140 mmol/L (138-146)
[2025-10-23 11:10] LABS: Alanine Aminotransferase 29 U/L (6-35); Albumin Level 4.6 g/dL (3.5-5.1); Alkaline Phosphatase 103 U/L (38-126); Anion Gap 7 mmol/L (4-12); Aspartate Amino Transferase 32 U/L (14-36); Bilirubin,Total 0.5 mg/dL (0.2-1.3); Blood Urea Nitrogen 18 mg/dL (7-17); Calcium 10.2 mg/dL (8.4-10.2); Carbon Dioxide 29 mmol/L (22-30); Chloride 103 mmol/L (98-107); Estimated Glomerular Filt Rate > 60; Glucose 113 mg/dL (65-110); Potassium 4.5 mmol/L (3.4-5.0); Sodium 139 mmol/L (137-145); Total Protein 7.7 g/dL (6.3-8.2)
== END 2025-10-23 09:44 | disposition home or self-care (01) ==
LOC: ANHLAB 09:44
PROVIDERS: PCP Internal Medicine Infectious Disease; Visit Provider Internal Medicine Hematology & Oncology
DX: C34.11 Malignant neoplasm of upper lobe, right bronchus or lung (principal)
CPT/HCPCS: 36415; 80047; 80053; 85025